=== PATIENT | male | born 1965 | race Caucasian/White ===

== ENCOUNTER → 2023-02-18 17:10 | Outpatient (BNVA) | payer MEDICARE, SELFPAY | PROVIDERS: PCP Family Medicine; Visit Provider Family Medicine | DX: I10 Essential (primary) hypertension (principal); M10.9 Gout, unspecified; I48.91 Unspecified atrial fibrillation; E11.42 Type 2 diabetes mellitus with diabetic polyneuropathy | CPT/HCPCS: 80053; 80061; 83036; 84443; 85025 ==

== ENCOUNTER → 2023-05-04 13:45 | Outpatient (BNVA) | payer MEDICARE, SELFPAY | PROVIDERS: PCP Family Medicine; Referring Provider Family Medicine; Visit Provider Internal Medicine | DX: R07.9 Chest pain, unspecified (principal); E11.42 Type 2 diabetes mellitus with diabetic polyneuropathy; I45.19 Other right bundle-branch block; I48.91 Unspecified atrial fibrillation; I10 Essential (primary) hypertension | CPT/HCPCS: 93005; 99204 ==

== ENCOUNTER 2023-05-06 16:24 | Emergency (ER) | payer MEDICARE, SELFPAY ==
[2023-05-06 16:43] VITALS: BP 125/78; PULSE 75; RESP 18; TEMP 36.5; O2SAT 98
--- NOTE | 2023-05-06 17:47 | W.ED.MALEGU ---
HPI - Male Genitourinary General: Chief complaint: Urogenital-Male Stated complaint: blood in urine, shoulder pain [facility] ED PFSH: Medical History A-fib Diabetic neuropathy Diabetes mellitus Gout Hypertension Social History Smoking and tobacco/nicotine status: current every day tobacco/nicotine user cigarettes Packs smoked per day: 0.5 Years cigarettes smoked: 30 Second hand smoke exposure: Yes Alcohol intake: never Substance/Drug Use: never Caregiver/support person: Yes Lives independently: Yes Household members: spouse Marital status: service: No Current occupational status: disabled Do you think of yourself as: Straight/Heterosexual Current gender identity: Male Special jewels needs: No Agree to transfusion: Yes Course Vital Signs: Vital signs: Vital Signs Temperature 97.7 F 05/06/23 16:43 Pulse Rate 75 05/06/23 16:43 Respiratory Rate 18 05/06/23 16:43 Blood Pressure 125/78 05/06/23 16:43 Pulse Oximetry 98 05/06/23 16:43 Oxygen Delivery Me thod Room Air 05/06/23 16:43 Discharge Plan Discharge Condition: Stable Prescriptions: No Action amlodipine 10 mg tablet 10 mg PO DAILY Qty: 30 3RF atorvastatin 20 mg tablet 20 mg PO DAILY Qty: 30 3RF carvedilol 25 mg tablet 25 mg PO BID Qty: 60 3RF Rx Instructions: must administer with a meal/food furosemide 40 mg tablet 40 mg PO DAILY Qty: 30 3RF glipizide 10 mg tablet extended release 24hr 10 mg PO BID Qty: 60 3RF hydralazine 25 mg tablet 25 mg PO BID Qty: 60 3RF metformin 500 mg tablet extended release 24 hr 500 mg PO BID Qty: 60 3RF olmesartan 40 mg tablet 40 mg PO DAILY Qty: 30 3RF pregabalin [Lyrica] 75 mg capsule 75 mg PO TID Qty: 90 1RF Trulicity 1.5 mg/0.5 mL pen injector 1.5 mg SUBCUT .weekly Qty: 2 3RF Xarelto 20 mg tablet 20 mg PO DAILY Qty: 90 3RF Rx Instructions: must administer with evening meal Referrals: Osiris Plummer MD [Primary Care Provider] - Coding Level of Care Code ED Business Strategy Manager for Chg Sabrina
[2023-05-06 18:07] LABS: Basophils # 0.1 10^3/uL (0.0-0.1); Basophils % 0.6 %; Eosinophils # 0.2 10^3/uL (0.0-0.8); Eosinophils % 1.5 %; Lymphocytes # 1.2 10^3/uL (0.8-4.8); Lymphocytes % 8.9 %; Mean Corpuscular HGB Conc 34.3 g/dL (30-55); Mean Corpuscular Hemoglobin 28.8 pg (27-33); Mean Platelet Volume 10.1 fL (7.4-10.4); Monocytes # 0.6 10^3/uL (0.2-0.9); Monocytes % 4.5 %; Neutrophils # 11.21 10^3/uL (1.8-7.7); Neutrophils % 84.2 %; Nucleated Red Blood Cells % 0 %; Platelet Count 353 10^3/cmm (157-399); Red Blood Count 5.83 10^6/uL (3.85-5.65); Red Cell Distribution Width 12.5 % (12.1-15.1); White Blood Count 13.32 10^3/uL (3.29-11.43)
--- NOTE | 2023-05-06 18:16 | CTR_ITS ---
PROCEDURE INFORMATION: Exam: CT Abdomen And Pelvis With Contrast Exam date and time: 05/06/2023 7:12 PM Age: 57 years old Clinical indication: Other: Hematuria TECHNIQUE: Imaging protocol: Computed tomography of the abdomen and pelvis with contrast. Radiation optimization: All CT scans at this facility use at least one of these dose optimization techniques: automated exposure control; mA and/or kV adjustment per patient size (includes targeted exams where dose is matched to clinical indication); or iterative reconstruction. Contrast material: OMNI 350; Contrast volume: 100 ml; Contrast route: INTRAVENOUS (IV); COMPARISON: No relevant prior studies available. RADIATION DOSE METRICS: Total DLP (mGy-cm): 1287.08 FINDINGS: Heart: On the uppermost image, calcification of heart which may be valve calcification/or coronary artery calcification. Heart size appears enlarged. Diaphragm: Eventration/elevation right hemidiaphragm. Liver: Mildly lobular configuration liver. Gallbladder and bile ducts: No calcific stone seen of gallbladder. No bile duct dilatation seen. Pancreas: Perhaps mild fatty change, fatty pancreas. Spleen: Spleen upper limits of normal to mildly prominent for length. Adrenal glands: Mild nodular configuration left adrenal. Soft tissue density nodularity/nodules right adrenal, with the largest measured at about 3 cm. Non-emergent adrenal CT is recommended. (Reference: [facility]) Kidneys and ureters: Kidneys show evidence of symmetric enhancement bilaterally. Tiny hypodensities of kidneys, too small to accurately characterize. No calcific stones seen visualized portions of kidneys, ureters bilaterally, nor urinary bladder. No dilation seen visualized portions of renal collecting systems, ureters bilaterally. Minimal perinephric stranding, nonspecific. Stomach and bowel: Stomach appears mostly empty, partly filled with fluid, gas, debris. Small bowel pattern appears nonobstructive. Moderate stool and gas of the colon. Appendix: No acute appendicitis seen. Intraperitoneal space: No free intraperitoneal air and no free abdominal nor pelvic fluid collection seen. Vasculature: Atherosclerotic disease. Ectasia abdominal aorta. Lymph nodes: Scattered small lymph nodes, nonspecific. Urinary bladder: Urinary bladder appears partly filled. Evidence of wall thickening of urinary bladder. Slight haziness, stranding around the urinary bladder. Correlate for nonspecific inflammation, cystitis, or other process. Neoplasm or other process not excluded. Reproductive: Prostate appears enlarged, slightly heterogeneous. Seminal vesicles grossly unremarkable. Bones/joints: Evidence of small ribs bilaterally T12. Endplate irregularity, sclerosis, lucency superior endplate L5 vertebral body, of uncertain age, probably subacute to chronic. Mild anterolisthesis L4 over L5. Evidence of degenerative changes facets. Probable hemangioma L4 vertebral body, perhaps minimally L3 vertebral body. Possible postoperative changes , spinal stenosis lumbar spine. Soft tissues: Tiny fat containing umbilical/paraumbilical hernia. CT/CT abdomen pelvis w con* [id number] IMPRESSION: 1. Evidence of wall thickening of urinary bladder. Slight haziness, stranding around the urinary bladder. Correlate for nonspecific inflammation, cystitis, or other process. Neoplasm or other process not excluded. 2. Mild nodular configuration left adrenal. Soft tissue density nodularity/nodules right adrenal, with the largest measured at about 3 cm. Non-emergent adrenal CT is recommended. (Reference: [facility]) 3. Please see body of report for findings. COMMENTS: Consistent with the [employer]'s Incidental Findings Committee white paper (J Am Hubert Radiol 2018): Any incidental renal lesion less than 1 cm or classified as too small to characterize, or any incidental cystic renal lesion characterized as simple-appearing, is likely benign. No follow-up imaging is recommended for these lesions per consensus recommendations based on imaging criteria. REFERENCES: Shelly CH, et al. Management of Incidental Adrenal Masses: A White Paper of the ACR Incidental Findings Committee. J Am Hubert Radiol. 2017;14(8):6285-8278.
--- NOTE | 2023-05-06 18:16 | ED_ITS ---
HPI - Male Genitourinary 2 General: Chief complaint: Urogenital-Male Stated complaint: blood in urine, shoulder pain Time Seen by Provider: 05/06/23 18:02 Source: patient Mode of arrival: ambulatory Limitations: no limitations History of Present Illness: 57-year-old male who states that he has noticed he had some hematuria since this morning. States been able to urinate without any difficulty but has had winter blood. He denies any dysuria denies any flank pain or abdominal pain. He is on blood thinners he is never had hematuria in the past. Denies any worsening improving factors. Associated symptoms: Reports hematuria; Deny dysuria, nausea or vomiting Review of Systems 2 Const: Denies: fever(s), chills, body aches or change in appetite Eyes: Denies: blurry vision or eye discomfort ENMT: Denies: throat pain or dental pain Card: Denies: chest pain Resp: Denies: dyspnea GI: Denies: abdominal pain, nausea, vomiting or diarrhea : Reports: hematuria; Denies: dysuria Musc: Denies: neck pain or back pain Skin/Breast: Denies: rash All/Imm: Denies: urticaria PFSH ED 2 PFSH: Medical History A-fib Diabetic neuropathy Diabetes mellitus Gout Hypertension Social History Smoking and tobacco/nicotine status: current every day tobacco/nicotine user cigarettes Packs smoked per day: 0.5 Years cigarettes smoked: 30 Second hand smoke exposure: Yes Alcohol intake: never Substance/Drug Use: never Caregiver/support person: Yes Lives independently: Yes Household members: spouse Marital status: service: No Current occupational status: disabled Do you think of yourself as: Straight/Heterosexual Current gender identity: Male Special jewels needs: No Agree to transfusion: Yes Physical Exam 2 Const: COMMON NORMALS: no acute distress, patient oriented x3 and healthy appearing HENMT: COMMON NORMALS: normocephalic and atraumatic HEAD & SCALP: n ormocephalic and atraumatic Eye: COMMON NORMALS: conjunctivae normal CONJUNCTIVA: Yes conjunctivae normal Neck/C-Spine: COMMON NORMALS: full ROM and supple Chest: COMMONS NORMALS: normal inspection of the chest Resp: COMMON NORMALS: normal respiratory effort Cardio: COMMON NORMALS: regular rate, regular rhythm and No murmurs present (Cardio) RATE: regular rate RHYTHM: regular rhythm GI: COMMON NORMALS: Normal to inspection, nondistended, normoactive bowel sounds present, Soft to palpation, non-tender and no masses PALPATION: Yes Soft to palpation Extremity: COMMON NORMALS: normal to inspection and full ROM Neuro: COMMON NORMALS: patient oriented x3, moves all extremities and no focal motor deficits Psych: COMMON NORMALS: mental status grossly normal, Normal thought process present and cooperative THOUGHT PROCESS: Normal thought process present Skin: COMMON NORMALS: no rashes or lesions noted and no wounds GENERAL SKIN EXAM: no rashes or lesions noted Course 2 Vital Signs: Vital signs: Vital Signs Temperature 97.7 F 05/06/23 16:43 Pulse Rate 64 05/06/23 19:45 Respiratory Rate 18 05/06/23 16:43 Blood Pressure 155/102 05/06/23 19:45 Pulse Oximetry 99 05/06/23 19:45 Oxygen Delivery Me thod Room Air 05/06/23 16:43 MDM - Male Medical Decision Making Patient presents here with hematuria we will start him on Keflex to inform is very important he needs to follow-up with urology to rule out bladder cancer patient stable for discharge at this time he understands agrees to plan Medical Records I reviewed the patient's medical records. Lab Data I reviewed the patient's lab results. 05/06/23 18:00 05/06/23 18:00 Radiology Impressions Abdomen/Pelvis CT 05/06/23 18:16 IMPRESSION: 1. Evidence of wall thickening of urinary bladder. Slight haziness, stranding around the urinary bladder. Correlate for nonspecific inflammation, cystitis, or other process. Neoplasm or other process not excluded. 2. Mild nodular configuration left adrenal. Soft tissue density nodularity/nodules right adrenal, with the largest measured at about 3 cm. Non-emergent adrenal CT is recommended. (Reference: [facility]) 3. Please see body of report for findings. COMMENTS: Consistent with the [employer]'s Incidental Findings Committee white paper (J Am Hubert Radiol 2018): Any incidental renal lesion less than 1 cm or classified as too small to characterize, or any incidental cystic renal lesion characterized as simple-appearing, is likely benign. No follow-up imaging is recommended for these lesions per consensus recommendations based on imaging criteria. REFERENCES: Shelly CH, et al. Management of Incidental Adrenal Masses: A White Paper of the ACR Incidental Findings Committee. J Am Hubert Radiol. 2017;14(8):2796-2985. Laboratory Results WBC 13.32 10^3/uL (3.29-11.43) H 05/06/23 18:00 RBC 5.83 10^6/uL (3.85-5.65) H 05/06/23 18:00 Hgb 16.80 g/dL (11.27-16.99) 05/06/23 18:00 Hct 49.0 % (37-53) 05/06/23 18:00 MCV 84.0 fl (82-101) 05/06/23 18:00 MCH 28.8 pg (27-33) 05/06/23 18:00 MCHC 34.3 g/dL (30-55) 05/06/23 18:00 RDW 12.5 % (12.1-15.1) 05/06/23 18:00 Plt Count 353 10^3/cmm (157-399) 05/06/23 18:00 MPV 10.1 fL (7.4-10.4) 05/06/23 18:00 Neut % (Auto) 84.2 % 05/06/23 18:00 Lymph % (Auto) 8.9 % 05/06/23 18:00 Wilcox % (Auto) 4.5 % 05/06/23 18:00 Eos % (Auto) 1.5 % 05/06/23 18:00 Baso % (Auto) 0.6 % 05/06/23 18:00 Neut # (Auto) 11.21 10^3/uL (1.8-7.7) H 05/06/23 18:00 Lymph # (Auto) 1.2 10^3/uL (0.8-4.8) 05/06/23 18:00 Wilcox # (Auto) 0.6 10^3/uL (0.2-0.9) 05/06/23 18:00 Eos # (Auto) 0.2 10^3/uL (0.0-0.8) 05/06/23 18:00 Baso # (Auto) 0.1 10^3/uL (0.0-0.1) 05/06/23 18:00 Nucleated RBC % (auto) 0 % 05/06/23 18:00 Nucleated RBCs # 0.0 /100WBC 05/06/23 18:00 PT 13.70 SECONDS (12.1-14.9) 05/06/23 18:00 INR 1.02 (0.8-1.2) 05/06/23 18:00 Sodium 140 mmol/L (136-145) 05/06/23 18:00 Potassium 4.5 mmol/L (3.5-5.1) 05/06/23 18:00 Chloride 99 mmol/L (98-107) 05/06/23 18:00 Carbon Dioxide 28 mmol/L (22-29) 05/06/23 18:00 Anion Gap 17.5 (5-19) 05/06/23 18:00 BUN 14 mg/dL (6-20) 05/06/23 18:00 Creatinine 1.2 mg/dL (0.7-1.2) 05/06/23 18:00 GFR Calculation 62.4 mL/min (90-130) L 05/06/23 18:00 Glucose 321 mg/dL (65-115) H 05/06/23 18:00 Calculated Osmolality 303 mOsm/kg (285-295) H 05/06/23 18:00 Calcium 9.6 mg/dL (8.5-10.5) 05/06/23 18:00 Total Bilirubin 0.6 mg/dL (0.15-1.2) 05/06/23 18:00 AST 14 U/L (0-40) 05/06/23 18:00 ALT 18 U/L (0-41) 05/06/23 18:00 Alkaline Phosphatase 117 U/L (40-130) 05/06/23 18:00 Total Protein 7.2 g/dL (6.6-8.7) 05/06/23 18:00 Albumin 4.3 g/dL (3.5-5.2) 05/06/23 18:00 Globulin 2.9 g/dL (1.3-4.6) 05/06/23 18:00 All radiology interpretation(s) finalized by discharge Discharge Plan Discharge Patient Disposition: Home Clinical Impression: Hematuria Qualifiers: Hematuria type: unspecified type Qualified Code(s): R31.9 - Hematuria, unspecified Condition: Stable Prescriptions: New cephalexin 500 mg capsule 500 mg PO TID 7 Days Qty: 21 0RF No Action amlodipine 10 mg tablet 10 mg PO DAILY Qty: 30 3RF atorvastatin 20 mg tablet 20 mg PO DAILY Qty: 30 3RF carvedilol 25 mg tablet 25 mg PO BID Qty: 60 3RF Rx Instructions: must administer with a meal/food furosemide 40 mg tablet 40 mg PO DAILY Qty: 30 3RF glipizide 10 mg tablet extended release 24hr 10 mg PO BID Qty: 60 3RF hydralazine 25 mg tablet 25 mg PO BID Qty: 60 3RF metformin 500 mg tablet extended release 24 hr 500 mg PO BID Qty: 60 3RF olmesartan 40 mg tablet 40 mg PO DAILY Qty: 30 3RF pregabalin [Lyrica] 75 mg capsule 75 mg PO TID Qty: 90 1RF Trulicity 1.5 mg/0.5 mL pen injector 1.5 mg SUBCUT .weekly Qty: 2 3RF Xarelto 20 mg tablet 20 mg PO DAILY Qty: 90 3RF Rx Instructions: must administer with evening meal Discharge Orders: Discharge ED (Routine); Ordered 05/06/23 Ordered By: Wendy Wynn Referrals: Osiris Plummer MD [Primary Care Provider] - Discharge Diet: Advance as tolerated Discharge Activity: Resume usual activity Patient Instructions: Hematuria (ED) Coding Level of Care Code ED Crusher Machine Operator for Fortino Bennett
[2023-05-06 18:20] LABS: INR 1.02 (0.8-1.2)
[2023-05-06 18:37] LABS: Alanine Aminotransferase 18 U/L (0-41); Albumin Level 4.3 g/dL (3.5-5.2); Alkaline Phosphatase 117 U/L (40-130); Anion Gap 17.5 (5-19); Aspartate Amino Transferase 14 U/L (0-40); Blood Urea Nitrogen 14 mg/dL (6-20); Calcium 9.6 mg/dL (8.5-10.5); Carbon Dioxide 28 mmol/L (22-29); Chloride 99 mmol/L (98-107); Creatinine Clr Calc Pharmacy 104.2053; Globulin 2.9 g/dL (1.3-4.6); Glomerular Filtration Rate 62.4 mL/min (90-130); Glucose 321 mg/dL (65-115); Osmolality Calculated 303 mOsm/kg (285-295); Potassium 4.5 mmol/L (3.5-5.1); Sodium 140 mmol/L (136-145); Total Bilirubin 0.6 mg/dL (0.15-1.2); Total Protein 7.2 g/dL (6.6-8.7)
[2023-05-06] MEDS: iohexol 350 mg/mL 500 mL Btl (per mL) IV (19:20)
[2023-05-06] MEDS: sodium chloride 0.9% 1,000 ML 999 ML IV (19:30)
[2023-05-06 19:45] VITALS: BP 155/102; PULSE 64; O2SAT 99
[2023-05-06] MEDS: cephALEXin 500 mg Capsule PO (20:30)
[2023-05-06 20:45] VITALS: PULSE 71; RESP 18; O2SAT 99
--- NOTE | 2023-05-07 08:21 | DCPLANNER ---
I faxed this patients chart to [facility] in [place] for referral on 05/07/23 at 0822. Clinic to contact patient for appt. Fax number sent to: [phone], phone number to clinic is: [phone]
== END 2023-05-06 20:47 | disposition home or self-care (01) ==
PROVIDERS: Internal Medicine; Emergency Provider Emergency Medicine; PCP Family Medicine
DX: R31.9 Hematuria, unspecified (principal); Z79.85 Long-term (current) use of injectable non-insulin antidiabetic drugs; Z79.84 Long term (current) use of oral hypoglycemic drugs; E11.42 Type 2 diabetes mellitus with diabetic polyneuropathy; I10 Essential (primary) hypertension; F17.210 Nicotine dependence, cigarettes, uncomplicated
CPT/HCPCS: 36415; 74177; 80053; 85025; 85610; 96360; 99285; J7030; Q9967

== ENCOUNTER 2023-08-25 11:48 | Outpatient (CLI) | payer MEDICARE, SELFPAY ==
[2023-08-25 12:29] LABS: Basophils # 0.1 10^3/uL (0.0-0.1); Basophils % 0.6 %; Eosinophils # 0.3 10^3/uL (0.0-0.8); Hematocrit 44.8 % (37-53); Lymphocytes # 1.8 10^3/uL (0.8-4.8); Lymphocytes % 12.7 %; Mean Corpuscular HGB Conc 35.5 g/dL (30-55); Mean Corpuscular Hemoglobin 29.1 pg (27-33); Mean Corpuscular Volume 82.1 fl (82-101); Mean Platelet Volume 10.2 fL (7.4-10.4); Monocytes % 7.4 %; Neutrophils # 10.77 10^3/uL (1.8-7.7); Neutrophils % 76.9 %; Nucleated Red Blood Cells % 0 %; Platelet Count 324 10^3/cmm (157-399); Red Blood Count 5.46 10^6/uL (3.85-5.65); Red Cell Distribution Width 13.2 % (12.1-15.1); White Blood Count 14.01 10^3/uL (3.29-11.43)
[2023-08-25 12:53] LABS: Alanine Aminotransferase 19 U/L (0-41); Albumin Level 3.8 g/dL (3.5-5.2); Alkaline Phosphatase 105 U/L (40-130); Anion Gap 14.3 (5-19); Aspartate Amino Transferase 16 U/L (0-40); Blood Urea Nitrogen 15 mg/dL (6-20); Calcium 9.2 mg/dL (8.5-10.5); Carbon Dioxide 30 mmol/L (22-29); Chloride 100 mmol/L (98-107); Globulin 3.2 g/dL (1.3-4.6); Glomerular Filtration Rate 62.4 mL/min (90-130); Glucose 156 mg/dL (65-115); Osmolality Calculated 296 mOsm/kg (285-295); Potassium 3.3 mmol/L (3.5-5.1); Sodium 141 mmol/L (136-145)
[2023-08-25 13:18] LABS: Estmated Average Glucose 169; Hemoglobin A1C 7.5 % (4.0-6.0)
== END 2023-08-25 11:49 | disposition home or self-care (01) ==
LOC: LAB 11:50
PROVIDERS: PCP Family Medicine; Visit Provider Nurse Practitioner Family
DX: E11.42 Type 2 diabetes mellitus with diabetic polyneuropathy (principal); E11.52 Type 2 diabetes mellitus with diabetic peripheral angiopathy with gangrene; E11.621 Type 2 diabetes mellitus with foot ulcer; L97.522 Non-pressure chronic ulcer of other part of left foot with fat layer exposed; L97.521 Non-pressure chronic ulcer of other part of left foot limited to breakdown of skin
CPT/HCPCS: 11042; 36415; 80053; 83036; 85025; 99203; A6210; A6251

== ENCOUNTER → 2023-09-02 16:00 | Outpatient (BNVA) | payer MEDICARE, SELFPAY | PROVIDERS: PCP Family Medicine; Visit Provider Family Medicine | DX: R53.83 Other fatigue (principal) | CPT/HCPCS: 82607; 84403; 84443; 85025 ==

== ENCOUNTER → 2023-09-08 10:55 | Outpatient (BNVA) | payer MEDICARE, SELFPAY | PROVIDERS: PCP Family Medicine; Visit Provider Nurse Practitioner Family | DX: E11.52 Type 2 diabetes mellitus with diabetic peripheral angiopathy with gangrene (principal); E11.621 Type 2 diabetes mellitus with foot ulcer; L97.522 Non-pressure chronic ulcer of other part of left foot with fat layer exposed | CPT/HCPCS: 11042 ==

== ENCOUNTER → 2023-09-15 11:03 | Outpatient (BNVA) | payer MEDICARE, SELFPAY | PROVIDERS: PCP Family Medicine; Visit Provider Thoracic Surgery (Cardiothoracic Vascular Surgery) | DX: E11.52 Type 2 diabetes mellitus with diabetic peripheral angiopathy with gangrene (principal); E11.621 Type 2 diabetes mellitus with foot ulcer; L97.522 Non-pressure chronic ulcer of other part of left foot with fat layer exposed | CPT/HCPCS: 11042; 97597; A6252 ==

== ENCOUNTER 2023-09-18 14:02 | Outpatient (CLI) | payer MEDICARE, SELFPAY ==
--- NOTE | 2023-09-18 14:06 | XR_ITS ---
WS: [id number] Left foot, 2 views Clinical Data: Non-healing ulcers Comparison: None. Findings: No fractures or dislocations are seen. No bone destruction or erosion is noted. There is a bunion of the head of the left first metatarsal. There is a small plantar spur. XR/XR foot LT 2V [id number] Impression: Bunion at the head of left first metatarsal.
== END 2023-09-18 14:03 | disposition home or self-care (01) ==
PROVIDERS: PCP Family Medicine; Visit Provider Nurse Practitioner Family
DX: Z51.89 Encounter for other specified aftercare (principal); E11.8 Type 2 diabetes mellitus with unspecified complications; M21.612 Bunion of left foot
CPT/HCPCS: 73620; 93970

== ENCOUNTER 2023-09-21 12:07 | Outpatient (CLI) | payer MEDICARE, SELFPAY ==
--- NOTE | 2023-09-21 12:15 | USR_ITS ---
PROCEDURE INFORMATION: Exam: US Duplex Bilateral Lower Extremity Arteries Exam date and time: 09/21/2023 12:15 PM Age: 57 years old Clinical indication: Condition or disease; Other: Non healing diabetic foot ulcer TECHNIQUE: Imaging protocol: Real-time ultrasound scan of the arteries of the bilateral lower extremities with 2-D saleh scale, color Doppler flow and spectral waveform analysis. Images documented and saved. COMPARISON: CT abdomen pelvis w con* [id number] 05/06/2023 7:12 PM FINDINGS: Right external iliac artery: Right iliac artery: Proximal 82.0 cm/sec, mid 77.0 cm/sec, distal 69.9 cm/sec, triphasic. Right common femoral artery: 85 cm/sec, triphasic. Right superficial femoral artery: Proximal SFA 61 cm/sec, triphasic. Mid SFA 72 cm/sec, triphasic. Distal SFA 95 cm/sec, triphasic. Right popliteal artery: 113 cm/sec, triphasic. Right calf/foot arteries: SILVER CHASER 71 cm/sec, triphasic. Dorsalis pedis 41 cm/sec, triphasic. Left external iliac artery: Left iliac artery: Proximal 66.0 cm/sec, mid 103.1 cm/sec, distal 74.5 cm/sec, triphasic. Left common femoral artery: 78 cm/sec, triphasic. Left superficial femoral artery: Proximal SFA 82 cm/sec, triphasic. Mid SFA 76 cm/sec, triphasic. Distal SFA 84 cm/sec, triphasic. Left popliteal artery: 57 cm/sec, triphasic. Left calf/foot arteries: SILVER CHASER 88 cm/sec, triphasic. Dorsalis pedis 51 cm/sec, triphasic. Right ankle-brachial index: 1.09 (dorsalis pedis); 1.08 (posterior tibial). Left ankle-brachial index: 1.05 (dorsalis pedis); 1.19 (posterior tibial). US/[place] [id number] IMPRESSION: No hemodynamically significant stenosis by peak systolic velocity criteria.
== END 2023-09-21 12:08 | disposition home or self-care (01) ==
LOC: RAD 12:08
PROVIDERS: PCP Family Medicine; Visit Provider Nurse Practitioner Family
DX: Z51.89 Encounter for other specified aftercare (principal)
CPT/HCPCS: 93925

== ENCOUNTER → 2023-09-22 10:25 | Outpatient (BNVA) | payer MEDICARE, SELFPAY | PROVIDERS: PCP Family Medicine; Visit Provider Thoracic Surgery (Cardiothoracic Vascular Surgery) | DX: E11.52 Type 2 diabetes mellitus with diabetic peripheral angiopathy with gangrene (principal); E11.621 Type 2 diabetes mellitus with foot ulcer; L97.521 Non-pressure chronic ulcer of other part of left foot limited to breakdown of skin | CPT/HCPCS: 97597 ==

== ENCOUNTER → 2023-09-25 13:48 | Outpatient (BNVA) | payer MEDICARE, SELFPAY | PROVIDERS: PCP Family Medicine; Visit Provider Thoracic Surgery (Cardiothoracic Vascular Surgery) | DX: E11.52 Type 2 diabetes mellitus with diabetic peripheral angiopathy with gangrene (principal); E11.621 Type 2 diabetes mellitus with foot ulcer; L97.521 Non-pressure chronic ulcer of other part of left foot limited to breakdown of skin | CPT/HCPCS: 29445; A6252 ==

== ENCOUNTER → 2023-10-02 09:28 | Outpatient (BNVA) | payer MEDICARE, SELFPAY | PROVIDERS: PCP Family Medicine; Visit Provider Thoracic Surgery (Cardiothoracic Vascular Surgery) | DX: E11.52 Type 2 diabetes mellitus with diabetic peripheral angiopathy with gangrene (principal); E11.621 Type 2 diabetes mellitus with foot ulcer; L97.521 Non-pressure chronic ulcer of other part of left foot limited to breakdown of skin | CPT/HCPCS: 97597; A6210 ==

== ENCOUNTER → 2023-10-07 09:09 | Outpatient (BNVA) | payer MEDICARE, SELFPAY | PROVIDERS: PCP Family Medicine; Visit Provider Thoracic Surgery (Cardiothoracic Vascular Surgery) | DX: E11.52 Type 2 diabetes mellitus with diabetic peripheral angiopathy with gangrene (principal); E11.621 Type 2 diabetes mellitus with foot ulcer; L97.521 Non-pressure chronic ulcer of other part of left foot limited to breakdown of skin; L97.421 Non-pressure chronic ulcer of left heel and midfoot limited to breakdown of skin | CPT/HCPCS: 97597; A6021 ==

== ENCOUNTER → 2023-10-14 08:49 | Outpatient (BNVA) | payer MEDICARE, SELFPAY | PROVIDERS: PCP Family Medicine; Visit Provider Thoracic Surgery (Cardiothoracic Vascular Surgery) | DX: Z09 Encounter for follow-up examination after completed treatment for conditions other than malignant neoplasm (principal); Z87.2 Personal history of diseases of the skin and subcutaneous tissue | CPT/HCPCS: 99212; A6197; A6253 ==

== ENCOUNTER → 2023-11-04 16:00 | Outpatient (BNVA) | payer MEDICARE, SELFPAY | PROVIDERS: PCP Family Medicine; Visit Provider Family Medicine | DX: I10 Essential (primary) hypertension (principal); E78.5 Hyperlipidemia, unspecified; E11.42 Type 2 diabetes mellitus with diabetic polyneuropathy; E53.8 Deficiency of other specified B group vitamins | CPT/HCPCS: 80053; 80061; 82607; 83036; 84443; 85025 ==

== ENCOUNTER → 2023-11-11 13:56 | Outpatient (BNVA) | payer MEDICARE, SELFPAY | PROVIDERS: PCP Family Medicine; Visit Provider Internal Medicine | DX: I48.91 Unspecified atrial fibrillation (principal); I10 Essential (primary) hypertension; E11.42 Type 2 diabetes mellitus with diabetic polyneuropathy; F17.210 Nicotine dependence, cigarettes, uncomplicated; Z79.84 Long term (current) use of oral hypoglycemic drugs | CPT/HCPCS: 99214 ==

== ENCOUNTER 2023-12-08 13:34 | Inpatient (IN) | payer MEDICARE, SELFPAY ==
[2023-12-08] VITALS (49 sets, daily range): BP systolic 145–198; BP diastolic 45–157; PULSE 60–169; RESP 13–96; TEMP 36.4; O2SAT 85–99; BMI 30.6; BMI 30.9
--- NOTE | 2023-12-08 14:09 | ECG_ITS ---
[employer] Test Date: 2023-12-08 Pat Name: Devang Kraus Department: Room: Gender: Male Medical Education Specialist: : 1965 Requested By: Damari Casanova Order Number: [id number] Reading MD: ERA LAZO Measurements Intervals Robinson Rate: 77 P: 0 CA: 0 QRS: -70 QRSD: 157 T: 3 QT: 440 QTc: 500 Interpretive Statements Atrial fibrillation RIGHT BUNDLE BRANCH BLOCK [120+ ms QRS DURATION, UPRIGHT V1, 40+ ms S IN I/aVL/V4/V5/V6] ANTERIOR MYOCARDIAL INFARCTION , PROBABLY OLD [40+ ms Q WAVE AND/OR ST/T ABNORMALITY IN V3/V4] INFERIOR MYOCARDIAL INFARCTION , PROBABLY OLD [40+ ms Q WAVE AND/OR ST/T ABNORMALITY IN II/aVF] Compared to ECG 05/04/2023 13:54:50 No significant change Electronically Signed On 12-08-2023 20:56:02 CDT by ERA LAZO [email or web address]
--- NOTE | 2023-12-08 14:09 | CT_ITS ---
WS: [id number] CT HEAD TECHNIQUE: Noncontrast CT of the head obtained from the skullbase to the vertex. CLINICAL INFORMATION: L leg motor weakness COMPARISON: None. DLP: [address] scans at [facility] use at least one of these dose optimization techniques: automated e xposure control; mA and/or kV adjustment per patient size (includes targeted exams where dose is matc hed to clinical indication); or iterative reconstruction. FINDINGS: No evidence of intracranial hemorrhage or mass effect. Ventricular system and basal cisterns are dumont nt. Moderate small vessel changes with moderate parenchymal volume loss. Chronic wedge-shaped infarct LEFT cerebellum. No extra-axial fluid collections. No evidence of mass or mass effect. Vascular calc ification. Paranasal sinuses and mastoid air cells are well aerated. .Normal visualized soft tissues. Silicone i njection LEFT globe CT/CT head thrombolytic [id number] IMPRESSION: 1. No evidence of intracranial hemorrhage or mass effect. 2. Moderate small vessel changes with moderate parenchymal volume loss. 3. Intracranial vascular calcification. 4. Chronic wedge-shaped infarct LEFT cerebellum. 5. No acute intracranial findings.
--- NOTE | 2023-12-08 14:10 | ED_ITS ---
HPI - Extremity Problem General: Chief complaint: Extremity Problem,Nontraumatic Stated complaint: LT Side Loss of feeling below the knee Time Seen by Provider: 12/08/23 13:44 Related Data Previous Rx's Medication Instructions Recorded diabetic shoes with inserts #1 ea 09/08/23 amlodipine 10 mg tablet 10 mg PO DAILY #30 tabs 11/04/23 atorvastatin 20 mg tablet 20 mg PO DAILY #30 tabs 11/04/23 carvedilol 25 mg tablet 25 mg PO BID #60 tabs 11/04/23 cyanocobalamin (vitamin B-12) 1,000 mcg IM .every 2 weeks #3 mL 11/04/23 1,000 mcg/mL injection solution dulaglutide 1.5 mg/0.5 mL 1.5 mg (0.5 mL) SUBCUT .weekly #2 11/04/23 subcutaneous pen injector mL (Trulicity) furosemide 40 mg tablet 40 mg PO DAILY #30 tabs 11/04/23 glipizide 10 mg tablet, extended 10 mg PO BID #60 tabs 11/04/23 release 24 hr hydralazine 25 mg tablet 25 mg PO BID #60 tabs 11/04/23 metformin 500 mg tablet,extended 500 mg PO BID #60 tabs 11/04/23 release 24 hr olmesartan 40 mg tablet 40 mg PO DAILY #30 tabs 11/04/23 pregabalin 75 mg capsule (Lyrica) 75 mg PO TID #90 caps 11/04/23 potassium chloride 10 mEq 10 meq PO DAILY #30 caps 11/09/23 capsule,extended release cyclobenzaprine 10 mg tablet 10 mg PO .qhs #30 tabs 11/23/23 Allergies Allergy/AdvReac Type Severity Reaction Status Date / Time No Known Allergies Allergy Verified 11/11/23 14:15 PFS ED PFSH: Medical History A-fib Diabetic neuropathy Diabetes mellitus Gout Hypertension Social History Smoking and tobacco/nicotine status: never used tobacco/nicotine Second hand smoke exposure: Yes Alcohol intake: never Substance/Drug Use: never Caregiver/support person: Yes Lives independently: Yes Household members: spouse Marital status: service: No Current occupational status: disabled Do you think of yourself as: Straight/Heterosexual Current gender identity: Male Special jewels needs: No Agree to transfusion: Yes Course Vital Signs: Vital signs: Vital Signs Temperature 97.6 F 12/08/23 13:38 Pulse Rate 76 12/08/23 13:38 Respiratory Rate 18 12/08/23 13:38 Blood Pressure 162/96 12/08/23 13:38 Pulse Oximetry 98 12/08/23 13:38 Oxygen Delivery Me thod Room Air 12/08/23 13:38 Discharge Plan Discharge Condition: Stable Prescriptions: No Action (DME) diabetic shoes with inserts See Rx Instructions .Route .MEDSUPPLY Qty: 1 0RF Rx Instructions: As directed amlodipine 10 mg tablet 10 mg PO DAILY Qty: 30 3RF atorvastatin 20 mg tablet 20 mg PO DAILY Qty: 30 3RF carvedilol 25 mg tablet 25 mg PO BID Qty: 60 3RF Rx Instructions: must administer with a meal/food cyanocobalamin (vitamin B-12) 1,000 mcg/mL solution 1,000 mcg IM .every 2 weeks Qty: 3 0RF Rx Instructions: for 6 weeks. Trulicity 1.5 mg/0.5 mL pen injector 1.5 mg SUBCUT .weekly Qty: 2 3RF furosemide 40 mg tablet 40 mg PO DAILY Qty: 30 3RF glipizide 10 mg tablet extended release 24hr 10 mg PO BID Qty: 60 3RF hydralazine 25 mg tablet 25 mg PO BID Qty: 60 3RF metformin 500 mg tablet extended release 24 hr 500 mg PO BID Qty: 60 3RF olmesartan 40 mg tablet 40 mg PO DAILY Qty: 30 3RF pregabalin [Lyrica] 75 mg capsule 75 mg PO TID Qty: 90 1RF cyclobenzaprine 10 mg tablet 10 mg PO .qhs Qty: 30 2RF potassium chloride 10 mEq capsule, extended release 10 meq PO DAILY Qty: 30 1RF Coding Level of Care Code ED Clinical Nurse Educator for Fortino Bennett NIH stroke score NIHSS Level Of Consciousness - 1a: 0 Level Of Consciousness Questions - 1b: Both Correct Level Of Consciousness Commands - 1c: Both Correct Best Gaze - 2: Normal Visual Hernandez - 3: No Visual Loss Facial Palsy - 4: Normal (he has a chronic L lid lag from previous eye surgery) Motor Arm Right - 5: No Drift Motor Arm Left - 5: No Drift Motor Leg Right - 6: No Drift Motor Leg Left - 6: No Movement Limb Ataxia - 7: Absent Sensory - 8: Normal Best Language - 9: No Aphasia Dysarthia - 10: Normal Extinction And Inattention - 11: 0 Score Total Score: 4
--- NOTE | 2023-12-08 14:16 | CT_ITS ---
WS: [id number] CTA HEAD AND NECK TECHNIQUE: Contrast enhanced CTA of the head and neck with coronal and sagittal reformatted images an d maximum intensity projection (MIP) images. NASCET criteria utilized. CLINICAL INFORMATION: L leg motor weakness COMPARISON: None. DLP: 569.[address] scans at [facility] use at least one of these dose optimization techniques: automated e xposure control; mA and/or kV adjustment per patient size (includes targeted exams where dose is matc hed to clinical indication); or iterative reconstruction. FINDINGS: RIGHT: RIGHT common artery is patent. No significant RIGHT ICA stenosis. RIGHT ICA is patent to the s kull base. LEFT: LEFT common carotid artery is patent. No significant LEFT ICA stenosis. LEFT ICA is patent to t he skull base. Codominant and patent vertebral arteries bilaterally. Proximal basilar artery is patent. Patent LEFT posterior communicating artery. Normal vascularity to the COMPOSITION INSTRUCTOR territory bilaterally. Both ICAs are patent at the skull base. Small LEFT A1 segment. Normal vascularity to the NATI and MCA territories bilaterally. No evidence of proximal flow-limiting stenosis. Chronic wedge-shaped LEFT cerebellar infarct. Silicone injection LEFT orbit. Reversal of normal cervical lordosis with moderate spondylitic changes. Disc osteophyte protrusion C4 -5 with moderate central canal stenosis. CT/CT angio headneck* [id number] IMPRESSION: 1. No significant cervical ICA stenosis. 2. No evidence of proximal flow-limiting intracranial stenosis.
[2023-12-08 14:18] LABS: Glucose Point of Care 163 mg/dL (70-110)
[2023-12-08 14:23] LABS: Basophils # 0.1 10^3/uL (0.0-0.1); Basophils % 0.9 %; Eosinophils # 0.2 10^3/uL (0.0-0.8); Eosinophils % 1.9 %; Hematocrit 46.1 % (37-53); Lymphocytes # 1.1 10^3/uL (0.8-4.8); Lymphocytes % 9.7 %; Mean Corpuscular HGB Conc 34.5 g/dL (30-55); Mean Corpuscular Hemoglobin 29.6 pg (27-33); Mean Corpuscular Volume 85.7 fl (82-101); Mean Platelet Volume 10.3 fL (7.4-10.4); Monocytes # 0.8 10^3/uL (0.2-0.9); Neutrophils # 9.06 10^3/uL (1.8-7.7); Neutrophils % 80.1 %; Nucleated Red Blood Cells % 0 %; Platelet Count 238 10^3/cmm (157-399); Red Blood Count 5.38 10^6/uL (3.85-5.65); Red Cell Distribution Width 13.2 % (12.1-15.1); White Blood Count 11.29 10^3/uL (3.29-11.43)
--- NOTE | 2023-12-08 14:33 | W.ED.NEUROSD ---
Documented by User: JONY Quiroz 12/09/23 13:26 HPI - Neuro Symptoms/Deficit General: Chief Complaint: Extremity Problem,Nontraumatic Stated Complaint: LT Side Loss of feeling below the knee Time Seen by Provider: 12/08/23 13:44 Source: patient and family Mode of arrival: wheelchair Limitations: no limitations History of Present Illness: Patient is a 58-year-old male presents to ED today along with family for evaluation of not being able to move his left lower extremity. Patient states around noon today he was seated when he felt like he was going to fall out of his chair. He states this happened twice. He states he went to get up and noticed that he was not able to move his left lower extremity. He states he is not having any sensory loss to the leg. He states he cannot walk because he is not able to move the leg. Patient states he does have chronic back pain. He is not able to tell me whether his back pain today is any worse than his baseline. He has not noticed any slurred speech or facial droop. 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 He has not noticed any weakness to his upper extremities. Denies slurred speech or aphasia. PMH is significant for atrial fibrillation, B12 deficiency, diabetes, HTN, and hyperlipidemia. Onset (ago): hour(s) Time: 12:00 Timing confirmed by: family member Location: left leg History of same: No Severity: severe Quality: weak Relieving factors: none Exacerbating factors: none Context: sudden onset On Anticoagulants: Yes Associated symptoms: Reports no associated symptoms; Deny chest pain or malaise Treatments Prior to Arrival: none Related Data Previous Rx's Medication Instructions Recorded diabetic shoes with inserts #1 ea 09/08/23 amlodipine 10 mg tablet 10 mg PO DAILY #30 tabs 11/04/23 atorvastatin 20 mg tablet 20 mg PO DAILY #30 tabs 11/04/23 carvedilol 25 mg tablet 25 mg PO BID #60 tabs 11/04/23 cyanocobalamin (vitamin B-12) 1,000 mcg IM .every 2 weeks #3 mL 11/04/23 1,000 mcg/mL injection solution dulaglutide 1.5 mg/0.5 mL 1.5 mg (0.5 mL) SUBCUT .weekly #2 11/04/23 subcutaneous pen injector mL (Trulicity) furosemide 40 mg tablet 40 mg PO DAILY #30 tabs 11/04/23 glipizide 10 mg tablet, extended 10 mg PO BID #60 tabs 11/04/23 release 24 hr hydralazine 25 mg tablet 25 mg PO BID #60 tabs 11/04/23 metformin 500 mg tablet,extended 500 mg PO BID #60 tabs 11/04/23 release 24 hr olmesartan 40 mg tablet 40 mg PO DAILY #30 tabs 11/04/23 pregabalin 75 mg capsule (Lyrica) 75 mg PO TID #90 caps 11/04/23 potassium chloride 10 mEq 10 meq PO DAILY #30 caps 11/09/23 capsule,extended release cyclobenzaprine 10 mg tablet 10 mg PO .qhs #30 tabs 11/23/23 Allergies Allergy/AdvReac Type Severity Reaction Status Date / Time No Known Allergies Allergy Verified 11/11/23 14:15 Review of Systems Const: Denies: fever(s), chills, body aches, fatigue or malaise Card: Denies: chest pain Resp: Denies: dyspnea GI: Denies: abdominal pain : Denies: flank pain or dysuria Musc: Reports: back pain (chronic), limited range of motion and muscle weakness; Denies: neck pain, extremity pain, extremity swelling, joint pain or joint swelling Skin/Breast: Denies: rash Neuro: Denies: numbness in extremities, weakness in extremities or sensory changes PFSH ED PFSH: Medical History A-fib Diabetic neuropathy Diabetes mellitus Gout Hypertension Surgical History History of back surgery Family History Other Cancer Social History Smoking and tobacco/nicotine status: never used tobacco/nicotine Second hand smoke exposure: Yes Alcohol intake: never Substance/Drug Use: never Caregiver/support person: Yes Lives independently: Yes Household members: spouse Marital status: service: No Current occupational status: disabled Do you think of yourself as: Straight/Heterosexual Current gender identity: Male Special jewels needs: No Agree to transfusion: Yes NIH stroke score NIHSS: Level Of Consciousness - 1a: 0 Level Of Consciousness Questions - 1b: Both Correct Level Of Consciousness Commands - 1c: Both Correct Best Gaze - 2: Normal Visual Hernandez - 3: No Visual Loss (has silicone implant to left eye) Facial Palsy - 4: Normal Motor Arm Right - 5: No Drift Motor Arm Left - 5: No Drift Motor Leg Right - 6: No Drift Motor Leg Left - 6: No Movement Limb Ataxia - 7: Absent (cannot perform heel to hayes using L LE due to motor weakness) Sensory - 8: Normal Best Language - 9: No Aphasia Dysarthia - 10: Normal Extinction And Inattention - 11: 0 Score: Total Score: 4 Physical Exam Const: COMMON NORMALS: patient oriented x3, no limitations, alert and well nourished GENERAL APPEARANCE: cooperative NUTRITIONAL APPEARANCE: overweight ORIENTATION/CONSCIOUSNESS: Yes awake, Yes oriented to person, Yes oriented to place and Yes oriented to time HENMT: FACE & SINUS: face symmetric (chronic lid lag L eye from previous surgeries) Eye: OTHER: Silicone implant left eye Neck/C-Spine: COMMON NORMALS: full ROM and no JVD Resp: COMMON NORMALS: normal respiratory effort and clear to auscultation bilaterally AUSCULTATION: clear to auscultation bilaterally Cardio: COMMON NORMALS: no JVD and regular rate RATE: regular rate RHYTHM: abnormal rhythm irregularly irregular : COMMON NORMALS: Yes no CVA tenderness BLADDER/KIDNEY EXAM: Yes no CVA tenderness Back/Pelvis: COMMON NORMALS: no CVA tenderness, thoracic and lumbar spine normal to inspection and no thoracic nor lumbar tenderness Extremity: COMMON NORMALS: capillary refill normal, no joint enlargement, no clubbing, cyanosis or edema, no calf tenderness and no pedal edema GENERAL: Yes normal exam except as noted OTHER: pt states he is not able to move any portion of his left lower extremity; he cannot raise extremity off table; if I passively raise leg it immediately falls once I let go; he cannot provide any resistance from his hip, knee, or ankle flexors/extensors; he does report normal sensation; DP/PT pulses are normal; no edema; no change in color/temp when compared to R LE Neuro: COMMON NORMALS: patient oriented x3 and no sensory deficits noted SENSORIUM/ORIENTATION: Yes alert, Yes oriented to person, Yes oriented to place and Yes oriented to time CRANIAL NERVES: Yes CN normal except as noted COORDINATION/BALANCE: [id number] test normal SPEECH: speech normal GAIT: Yes Unable to assess gait COORDINATION: [id number] test normal Course ED course: Dr. Benson was immediately alerted after my initial examination on patient and he agreed with decision for stroke alert. He also will evaluate patient. Patient's is now telling me he is not on his prescribed Xarelto. had verified during my initial exam that he was on a blood thinner for his atrial fibrillation. I had read Dr. Bell's note from last month confirming Xarelto for this. On another re-assessment of patient, I spoke to again confirming his anticoagulation and that's when she seemed to think his Trulicity and/or his aspirin was his blood thinner. When I explained to her that I was referring to his Xarelto she tells me he is not taking this because he cannot afford it and states he has not been on this for many months. I called Dr. Santana immediately as well as Dr. Benson because this could impact the decision to give TNK. Dr. Santana is coming to evaluate him at bedside. Vital Signs: Vital signs: Vital Signs Temperature 97.8 F 12/09/23 09:30 Pulse Rate 68 12/09/23 10:25 Respiratory Rate 14 12/09/23 09:30 Blood Pressure 187/100 12/09/23 09:30 Pulse Oximetry 97 12/09/23 10:25 Oxygen Delivery Me thod Room Air 12/09/23 10:25 MDM - Neuro Symptoms/Deficit Medical Decision Making Patient is a 58-year-old male who comes in to the ED today complaining of acute onset left leg motor weakness. He was triaged as a knee numbness. During my examination, he tells me that he is having primarily motor loss to the left leg. Immediately after my assessment I spoke to Dr. Benson and decision was made to call a stroke alert. Patient and his family had initially verified he was on anticoagulation for his atrial fibrillation therefore initially was not a TNK candidate. After speaking to family again, there was some confusion on this. did later verify that he is not on his Xarelto as he cannot afford this medication. Dr. Santana evaluated patient here in the emergency department and decision was made to give TNK. He will be an admit to ICU to Dr. Prince. Chart reviewed and patient discussed with midlevel. Agree with assessment and plan. Patient was initially seen by Damari Gomez she had came to me and asked about his symptoms we reviewed his having motor and sensory loss in his left leg. Advised her to call stroke alert I did see the patient he did indeed have motor weakness I was able to elicit some sensation with sharp touch on the sole of the foot. His onset of symptoms was 2 hours ago however initially we were told that he had been taking Xarelto therefore not making him a candidate for tPA. Patient's NIH score at the time my sex and I both calculated at 4. I did see the patient in CT suite and independently examined him. At that point with his stroke score being less than 6 and his report of being on Xarelto he was felt not to be a candidate for TNKase or for thrombotic back to me because a stroke score was less than 6. I was later discovered by Ms. Gomez that the patient was not taking his Xarelto. Family had initially reported to her that he was. Dr. Santana came to the ED department seeing the patient and recommended TNKase which she was given PCC her notes. Differential Diagnosis Likely cerebrovascular accident Medical Records I reviewed the patient's medical records. Lab Data I reviewed the patient's lab results. 12/08/23 14:15 12/08/23 14:[address] 12/08/23 14:09 IMPRESSION: 1. No evidence of intracranial hemorrhage or mass effect. 2. Moderate small vessel changes with moderate parenchymal volume loss. 3. Intracranial vascular calcification. 4. Chronic wedge-shaped infarct LEFT cerebellum. 5. No acute intracranial findings. Head/Neck CTA 12/08/23 14:16 IMPRESSION: 1. No significant cervical ICA stenosis. 2. No evidence of proximal flow-limiting intracranial stenosis. Knee X-Ray 12/08/23 23:30 IMPRESSION: 1. Indeterminate focal bony defect at the lateral femoral condyle which may be chronic. Recommend CT correlation. 2. Severe degenerative joint disease with joint effusion. Laboratory Results WBC 11.29 10^3/uL (3.29-11.43) 12/08/23 14:15 RBC 5.38 10^6/uL (3.85-5.65) 12/08/23 14:15 Hgb 15.90 g/dL (11.27-16.99) 12/08/23 14:15 Hct 46.1 % (37-53) 12/08/23 14:15 MCV 85.7 fl (82-101) 12/08/23 14:15 MCH 29.6 pg (27-33) 12/08/23 14:15 MCHC 34.5 g/dL (30-55) 12/08/23 14:15 RDW 13.2 % (12.1-15.1) 12/08/23 14:15 Plt Count 238 10^3/cmm (157-399) 12/08/23 14:15 MPV 10.3 fL (7.4-10.4) 12/08/23 14:15 Neut % (Auto) 80.1 % 12/08/23 14:15 Lymph % (Auto) 9.7 % 12/08/23 14:15 [place] % (Auto) 7.0 % 12/08/23 14:15 Eos % (Auto) 1.9 % 12/08/23 14:15 Baso % (Auto) 0.9 % 12/08/23 14:15 Neut # (Auto) 9.06 10^3/uL (1.8-7.7) H 12/08/23 14:15 Lymph # (Auto) 1.1 10^3/uL (0.8-4.8) 12/08/23 14:15 [place] # (Auto) 0.8 10^3/uL (0.2-0.9) 12/08/23 14:15 Eos # (Auto) 0.2 10^3/uL (0.0-0.8) 12/08/23 14:15 Baso # (Auto) 0.1 10^3/uL (0.0-0.1) 12/08/23 14:15 Nucleated RBC % (auto) 0 % 12/08/23 14:15 Nucleated RBCs # 0.0 /100WBC 12/08/23 14:15 PT 14.20 SECONDS (12.1-14.9) 12/08/23 14:15 INR 1.07 (0.8-1.2) 12/08/23 14:15 APTT 29.4 SECONDS (23.9-36.7) 12/08/23 14:15 Sodium 141 mmol/L (136-145) 12/08/23 14:15 Potassium 3.1 mmol/L (3.5-5.1) L 12/08/23 14:15 Chloride 102 mmol/L (98-107) 12/08/23 14:15 Carbon Dioxide 29 mmol/L (22-29) 12/08/23 14:15 Anion Gap 13.1 (5-19) 12/08/23 14:15 BUN 11 mg/dL (6-20) 12/08/23 14:15 Creatinine 1.0 mg/dL (0.7-1.2) 12/08/23 14:15 GFR Calculation 76.7 mL/min (90-130) L 12/08/23 14:15 Glucose 169 mg/dL (65-115) H 12/08/23 14:15 POC Glucose 163 mg/dL (70-110) H 12/08/23 14:11 Calculated Osmolality 295 mOsm/kg (285-295) 12/08/23 14:15 Calcium 8.8 mg/dL (8.5-10.5) 12/08/23 14:15 Total Bilirubin 1.1 mg/dL (0.15-1.2) 12/08/23 14:15 AST 14 U/L (0-40) 12/08/23 14:15 ALT 16 U/L (0-41) 12/08/23 14:15 Alkaline Phosphatase 86 U/L (40-130) 12/08/23 14:15 Total Protein 6.8 g/dL (6.6-8.7) 12/08/23 14:15 Albumin 4.0 g/dL (3.5-5.2) 12/08/23 14:15 Globulin 2.8 g/dL (1.3-4.6) 12/08/23 14:15 Triglycerides 146 mg/dL (0-150) 12/08/23 14:15 Cholesterol 101 mg/dL (0-200) 12/08/23 14:15 LDL Cholesterol, Calc 45 mg/dL (50-129) L 12/08/23 14:15 HDL Cholesterol 27 mg/dL (60-100) L 12/08/23 14:15 LDL/HDL Ratio 1.67 RATIO (0.00-3.22) 12/08/23 14:15 Cholesterol/HDL Ratio 3.74 mg/dL (1.0-5.00) 12/08/23 14:15 TSH 1.43 uIU/mL (0.27-4.20) 12/08/23 14:15 Urine Color Yellow (Yellow) 12/08/23 15:41 Urine Appearance Clear (CLEAR) 12/08/23 15:41 Urine pH 7.5 (5-7) 12/08/23 15:41 Ur Specific [place] 1.033 (1.005-1.030) H 12/08/23 15:41 Urine Protein Trace (Negative) A 12/08/23 15:41 Urine Glucose (UA) 1+ (Normal) H 12/08/23 15:41 Urine Ketones Negative (Negative) 12/08/23 15:41 Urine Blood Negative (Negative) 12/08/23 15:41 Urine Nitrate Negative (Negative) 12/08/23 15:41 Urine Bilirubin Negative (Negative) 12/08/23 15:41 Urine Urobilinogen 1.0 mg/dL (Negative) 12/08/23 15:41 Ur Leukocyte Esterase Negative (Negative) 12/08/23 15:41 Urine RBC 0-2 /hpf (0-2) 12/08/23 15:41 Urine WBC 0-5 /hpf (0-5) 12/08/23 15:41 Ur Squamous Epith Cells 0-5 /hpf (0-5) 12/08/23 15:41 Amorphous Sediment Not Reportable 12/08/23 15:41 Urine Bacteria None seen /hpf (NONE) 12/08/23 15:41 Hyaline Casts 0.81 /lpf 12/08/23 15:41 Urine Opiates Screen Negative ng/mL (Negative) 12/08/23 15:41 Ur Barbiturates Screen Negative ng/mL (Negative) 12/08/23 15:41 Ur Phencyclidine Scrn Negative ng/mL (Negative) 12/08/23 15:41 Ur Amphetamines Screen Negative ng/mL (Negative) 12/08/23 15:41 U Benzodiazepines Scrn Negative ng/mL (Negative) 12/08/23 15:41 Urine Cocaine Screen Negative ng/mL (Negative) 12/08/23 15:41 U Marijuana (THC) Screen Negative ng/mL (Negative) 12/08/23 15:41 All radiology interpretation(s) finalized by discharge Discharge Plan Discharge Patient Disposition: Admitted As Inpatient Admit Provider: Malachi Prince Clinical Impression: Weakness of left leg Condition: Stable Coding Level of Care Code ED Technology Solutions Architect for Chg Fwd Documented by User: Grover Benson DO 12/09/23 05:14 HPI - Neuro Symptoms/Deficit General: Chief Complaint: Extremity Problem,Nontraumatic Stated Complaint: LT Side Loss of feeling below the knee Time Seen by Provider: 12/08/23 13:44 Related Data Previous Rx's Medication Instructions Recorded diabetic shoes with inserts #1 ea 09/08/23 amlodipine 10 mg tablet 10 mg PO DAILY #30 tabs 11/04/23 atorvastatin 20 mg tablet 20 mg PO DAILY #30 tabs 11/04/23 carvedilol 25 mg tablet 25 mg PO BID #60 tabs 11/04/23 cyanocobalamin (vitamin B-12) 1,000 mcg IM .every 2 weeks #3 mL 11/04/23 1,000 mcg/mL injection solution dulaglutide 1.5 mg/0.5 mL 1.5 mg (0.5 mL) SUBCUT .weekly #2 11/04/23 [facility] furosemide 40 mg tablet 40 mg PO DAILY #30 tabs 11/04/23 glipizide 10 mg tablet, extended 10 mg PO BID #60 tabs 11/04/23 release 24 hr hydralazine 25 mg tablet 25 mg PO BID #60 tabs 11/04/23 metformin 500 mg tablet,extended 500 mg PO BID #60 tabs 11/04/23 release 24 hr olmesartan 40 mg tablet 40 mg PO DAILY #30 tabs 11/04/23 pregabalin 75 mg capsule (Lyrica) 75 mg PO TID #90 caps 11/04/23 potassium chloride 10 mEq 10 meq PO DAILY #30 caps 11/09/23 capsule,extended release cyclobenzaprine 10 mg tablet 10 mg PO .qhs #30 tabs 11/23/23 Allergies Allergy/AdvReac Type Severity Reaction Status Date / Time No Known Allergies Allergy Verified 11/11/23 14:15 [facility] ED PFS: Medical History A-fib Diabetic neuropathy Diabetes mellitus Gout Hypertension Surgical History History of back surgery Family History Other Cancer Social History Smoking and tobacco/nicotine status: never used tobacco/nicotine Second hand smoke exposure: Yes Alcohol intake: never Substance/Drug Use: never Caregiver/support person: Yes Lives independently: Yes Household members: spouse Marital status: service: No Current occupational status: disabled Do you think of yourself as: Straight/Heterosexual Current gender identity: Male Special jewels needs: No Agree to transfusion: Yes NIH stroke score Score: Total Score: 4 Course Vital Signs: Vital signs: Vital Signs Temperature 97.8 F 12/09/23 09:30 Pulse Rate 68 12/09/23 10:25 Respiratory Rate 14 12/09/23 09:30 Blood Pressure 187/100 12/09/23 09:30 Pulse Oximetry 97 12/09/23 10:25 Oxygen Delivery Me thod Room Air 12/09/23 10:25 MDM - Neuro Symptoms/Deficit Medical Decision Making Patient is a 58-year-old male who comes in to the ED today complaining of acute onset left leg motor weakness. He was triaged as a knee numbness during my examination he tells me that he is having primarily motor loss to the left leg. Immediately after my assessment I spoke to Dr. Benson and decision was made to call a stroke alert. Patient and his family had initially verified he was on anticoagulation for his atrial fibrillation therefore initially was not a TNK candidate. After speaking to family again, there was some confusion on this. did later verify that he is not on his Xarelto as he cannot afford this medication. Dr. Santana evaluated patient here in the emergency department and decision was made to give TNK. He will be an admit to ICU to Dr. Prince. Chart reviewed and patient discussed with midlevel. Agree with assessment and plan. Patient was initially seen by Damari Patricia she had came to me and asked about his symptoms we reviewed his having motor and sensory loss in his left leg. Advised her to call stroke alert I did see the patient he did indeed have motor weakness I was able to elicit some sensation with sharp touch on the sole of the foot. His onset of symptoms was 2 hours ago however initially we were told that he had been taking Xarelto therefore not making him a candidate for tPA. Patient's NIH score at the time my sex and I both calculated at 4. I did see the patient in CT suite and independently examined him. At that point with his stroke score being less than 6 and his report of being on Xarelto he was felt not to be a candidate for TNKase or for thrombotic back to me because a stroke score was less than 6. I was later discovered by Ms. Gomez that the patient was not taking his Xarelto. Family had initially reported to her that he was. Dr. Santana came to the ED department seeing the patient and recommended TNKase which she was given PCC her notes. Lab Data 12/08/23 14:15 12/08/23 14:[address] 12/08/23 14:09 IMPRESSION: 1. No evidence of intracranial hemorrhage or mass effect. 2. Moderate small vessel changes with moderate parenchymal volume loss. 3. Intracranial vascular calcification. 4. Chronic wedge-shaped infarct LEFT cerebellum. 5. No acute intracranial findings. Head/Neck CTA 12/08/23 14:16 IMPRESSION: 1. No significant cervical ICA stenosis. 2. No evidence of proximal flow-limiting intracranial stenosis. Knee X-Ray 12/08/23 23:30 IMPRESSION: 1. Indeterminate focal bony defect at the lateral femoral condyle which may be chronic. Recommend CT correlation. 2. Severe degenerative joint disease with joint effusion. Laboratory Results WBC 11.29 10^3/uL (3.29-11.43) 12/08/23 14:15 RBC 5.38 10^6/uL (3.85-5.65) 12/08/23 14:15 Hgb 15.90 g/dL (11.27-16.99) 12/08/23 14:15 Hct 46.1 % (37-53) 12/08/23 14:15 MCV 85.7 fl (82-101) 12/08/23 14:15 MCH 29.6 pg (27-33) 12/08/23 14:15 MCHC 34.5 g/dL (30-55) 12/08/23 14:15 RDW 13.2 % (12.1-15.1) 12/08/23 14:15 Plt Count 238 10^3/cmm (157-399) 12/08/23 14:15 MPV 10.3 fL (7.4-10.4) 12/08/23 14:15 Neut % (Auto) 80.1 % 12/08/23 14:15 Lymph % (Auto) 9.7 % 12/08/23 14:15 [place] % (Auto) 7.0 % 12/08/23 14:15 Eos % (Auto) 1.9 % 12/08/23 14:15 Baso % (Auto) 0.9 % 12/08/23 14:15 Neut # (Auto) 9.06 10^3/uL (1.8-7.7) H 12/08/23 14:15 Lymph # (Auto) 1.1 10^3/uL (0.8-4.8) 12/08/23 14:15 [place] # (Auto) 0.8 10^3/uL (0.2-0.9) 12/08/23 14:15 Eos # (Auto) 0.2 10^3/uL (0.0-0.8) 12/08/23 14:15 Baso # (Auto) 0.1 10^3/uL (0.0-0.1) 12/08/23 14:15 Nucleated RBC % (auto) 0 % 12/08/23 14:15 Nucleated RBCs # 0.0 /100WBC 12/08/23 14:15 PT 14.20 SECONDS (12.1-14.9) 12/08/23 14:15 INR 1.07 (0.8-1.2) 12/08/23 14:15 APTT 29.4 SECONDS (23.9-36.7) 12/08/23 14:15 Sodium 141 mmol/L (136-145) 12/08/23 14:15 Potassium 3.1 mmol/L (3.5-5.1) L 12/08/23 14:15 Chloride 102 mmol/L (98-107) 12/08/23 14:15 Carbon Dioxide 29 mmol/L (22-29) 12/08/23 14:15 Anion Gap 13.1 (5-19) 12/08/23 14:15 BUN 11 mg/dL (6-20) 12/08/23 14:15 Creatinine 1.0 mg/dL (0.7-1.2) 12/08/23 14:15 GFR Calculation 76.7 mL/min (90-130) L 12/08/23 14:15 Glucose 169 mg/dL (65-115) H 12/08/23 14:15 POC Glucose 163 mg/dL (70-110) H 12/08/23 14:11 Calculated Osmolality 295 mOsm/kg (285-295) 12/08/23 14:15 Calcium 8.8 mg/dL (8.5-10.5) 12/08/23 14:15 Total Bilirubin 1.1 mg/dL (0.15-1.2) 12/08/23 14:15 AST 14 U/L (0-40) 12/08/23 14:15 ALT 16 U/L (0-41) 12/08/23 14:15 Alkaline Phosphatase 86 U/L (40-130) 12/08/23 14:15 Total Protein 6.8 g/dL (6.6-8.7) 12/08/23 14:15 Albumin 4.0 g/dL (3.5-5.2) 12/08/23 14:15 Globulin 2.8 g/dL (1.3-4.6) 12/08/23 14:15 Triglycerides 146 mg/dL (0-150) 12/08/23 14:15 Cholesterol 101 mg/dL (0-200) 12/08/23 14:15 LDL Cholesterol, Calc 45 mg/dL (50-129) L 12/08/23 14:15 HDL Cholesterol 27 mg/dL (60-100) L 12/08/23 14:15 LDL/HDL Ratio 1.67 RATIO (0.00-3.22) 12/08/23 14:15 Cholesterol/HDL Ratio 3.74 mg/dL (1.0-5.00) 12/08/23 14:15 TSH 1.43 uIU/mL (0.27-4.20) 12/08/23 14:15 Urine Color Yellow (Yellow) 12/08/23 15:41 Urine Appearance Clear (CLEAR) 12/08/23 15:41 Urine pH 7.5 (5-7) 12/08/23 15:41 Ur Specific [place] 1.033 (1.005-1.030) H 12/08/23 15:41 Urine Protein Trace (Negative) A 12/08/23 15:41 Urine Glucose (UA) 1+ (Normal) H 12/08/23 15:41 Urine Ketones Negative (Negative) 12/08/23 15:41 Urine Blood Negative (Negative) 12/08/23 15:41 Urine Nitrate Negative (Negative) 12/08/23 15:41 Urine Bilirubin Negative (Negative) 12/08/23 15:41 Urine Urobilinogen 1.0 mg/dL (Negative) 12/08/23 15:41 Ur Leukocyte Esterase Negative (Negative) 12/08/23 15:41 Urine RBC 0-2 /hpf (0-2) 12/08/23 15:41 Urine WBC 0-5 /hpf (0-5) 12/08/23 15:41 Ur Squamous Epith Cells 0-5 /hpf (0-5) 12/08/23 15:41 Amorphous Sediment Not Reportable 12/08/23 15:41 Urine Bacteria None seen /hpf (NONE) 12/08/23 15:41 Hyaline Casts 0.81 /lpf 12/08/23 15:41 Urine Opiates Screen Negative ng/mL (Negative) 12/08/23 15:41 Ur Barbiturates Screen Negative ng/mL (Negative) 12/08/23 15:41 Ur Phencyclidine Scrn Negative ng/mL (Negative) 12/08/23 15:41 Ur Amphetamines Screen Negative ng/mL (Negative) 12/08/23 15:41 U Benzodiazepines Scrn Negative ng/mL (Negative) 12/08/23 15:41 Urine Cocaine Screen Negative ng/mL (Negative) 12/08/23 15:41 U Marijuana (THC) Screen Negative ng/mL (Negative) 12/08/23 15:41 Discharge Plan Discharge Patient Disposition: Admitted As Inpatient Admit Provider: Malachi Prince Clinical Impression: Weakness of left leg Condition: Stable Coding Level of Care Code ED Technology Solutions Architect for Chg Fwd
[2023-12-08 14:34] LABS: INR 1.07 (0.8-1.2)
[2023-12-08 14:35] LABS: Partial Thromboplastin Time 29.4 SECONDS (23.9-36.7)
[2023-12-08 14:39] LABS: Alanine Aminotransferase 16 U/L (0-41); Alkaline Phosphatase 86 U/L (40-130); Anion Gap 13.1 (5-19); Aspartate Amino Transferase 14 U/L (0-40); Blood Urea Nitrogen 11 mg/dL (6-20); Calcium 8.8 mg/dL (8.5-10.5); Carbon Dioxide 29 mmol/L (22-29); Chloride 102 mmol/L (98-107); Creatinine Clr Calc Pharmacy 120.2334; Globulin 2.8 g/dL (1.3-4.6); Glomerular Filtration Rate 76.7 mL/min (90-130); Glucose 169 mg/dL (65-115); Osmolality Calculated 295 mOsm/kg (285-295); Potassium 3.1 mmol/L (3.5-5.1); Sodium 141 mmol/L (136-145); Total Bilirubin 1.1 mg/dL (0.15-1.2); Total Protein 6.8 g/dL (6.6-8.7)
[2023-12-08] MEDS: sodium chloride 0.9% 1,000 ML 999 ML IV (14:43)
[2023-12-08] MEDS: iohexol 350 mg/mL 500 mL Btl (per mL) IV (14:47)
[2023-12-08] MEDS: tenecteplase 50mg Kit (STROKE) 25 MG IVP (15:35)
[2023-12-08 15:54] LABS: Bilirubin Urine Negative (Negative); Blood Urine Negative (Negative); Glucose Urine UA 1+ (Normal); Ketones Urine Negative (Negative); Leukocyte Esterase Urine Negative (Negative); Nitrate Urine Negative (Negative); Protein Urine Trace (Negative); Urine Appearance Clear (CLEAR); Urine Color Yellow (Yellow); pH Urine 7.5 (5-7)
[2023-12-08 15:58] LABS: Add Urine Microscopic? YES; Bacteria Urine None Seen /hpf; Hyaline Casts Urine 0.81 /lpf; RBC Urine 0-2 /hpf (0-2); Squamous Epithelial Cell Urine 0-5 /hpf (0-5); WBC Urine 0-5 /hpf (0-5)
[2023-12-08 16:01] LABS: Amphetamines Screen Urine Negative (Negative); Barbiturates Screen Urine Negative (Negative); Benzodiazepines Screen Urine Negative (Negative); Cocaine Screen Urine Negative (Negative); Opiate Screen Urine Negative (Negative); PCP Screen Urine Negative (Negative); THC Screen Urine Negative (Negative)
[2023-12-08 16:08] LABS: Specific Gravity, Urine 1.033 (1.005-1.030)
--- NOTE | 2023-12-08 17:22 | P.HP_ITS ---
Providers/Chief Complaint 2 Admitting Physician: Malachi Prince MD Chief Complaint: LT Side Loss of feeling below the knee History of Present Illness Devang Kraus is a 58 year old male with a past medical history of type 2 diabetes mellitus, atrial fibrillation currently off Xarelto due to affordability issues, neuropathy, chronic back pain status post 2 back surgeries, who presents [facility] due to acute onset left lower extremity weakness. Patient tells me that today at roughly noon time, he had gotten up to put a bowl in the sink, when he did not feel well, felt unsteady on his feet, so he went down to sit in his chair, he tells me that he was starting to lean towards the left side, feeling that he would fall out of his chair, so he tried to get up out of the chair when he noticed that he had no strength in his left leg, he had to use his hands to move his left leg, all he does not report any sensory loss, but was unable to get up out of the chair due to acute onset left leg weakness, no left upper extremity weakness, no facial droop no slurring of words, he has a chronic left lid lag, no nausea, no vomiting, no worsening of his back pain no urinary continence, no bowel incontinence no saddle perineal anesthesia, no recent falls, no recent injuries, no prior history of strokes, when EMS arrived they checked his blood sugars, his blood sugars were within normal limits, he does report that he was on Xarelto for his a history of atrial fibrillation but after moving from [place], he was not able to afford it so he has not been using Xarelto in over a year, denies being on any other blood thinners Review of Systems 2 Const: Denies: fever(s) Eyes: Denies: change in vision Card: Denies: chest pain Resp: Denies: dyspnea GI: Denies: abdominal pain : Denies: flank pain Musc: Reports: muscle weakness; Denies: neck pain or back pain Neuro: Reports: weakness in extremities, lack of coordination and difficulty walking; Denies: headache(s), numbness in extremities, sensory changes, frequent falls, dizziness, vertigo, confusion, Slurred speech present, difficulty communicating thoughts or seizure-like activity Psych: Denies: anxiety Endo: Denies: polyuria Medications/Allergies Home Medications Medication Instructions Recorded Confirmed Last Taken Type diabetic shoes with inserts #1 ea 09/08/23 11/23/23 Unknown Rx amlodipine 10 mg tablet 10 mg PO DAILY #30 tabs 11/04/23 11/23/23 Unknown Rx atorvastatin 20 mg tablet 20 mg PO DAILY #30 tabs 11/04/23 11/23/23 Unknown Rx carvedilol 25 mg tablet 25 mg PO BID #60 tabs 11/04/23 11/23/23 Unknown Rx cyanocobalamin (vitamin B-12) 1,000 mcg IM .every 2 weeks #3 mL 11/04/23 11/23/23 Unknown Rx 1,000 mcg/mL injection solution dulaglutide 1.5 mg/0.5 mL 1.5 mg (0.5 mL) SUBCUT .weekly #2 11/04/23 11/23/23 Unknown Rx subcutaneous pen injector mL (Trulicity) furosemide 40 mg tablet 40 mg PO DAILY #30 tabs 11/04/23 11/23/23 Unknown Rx glipizide 10 mg tablet, extended 10 mg PO BID #60 tabs 11/04/23 11/23/23 Unknown Rx release 24 hr hydralazine 25 mg tablet 25 mg PO BID #60 tabs 11/04/23 11/23/23 Unknown Rx metformin 500 mg tablet,extended 500 mg PO BID #60 tabs 11/04/23 11/23/23 Unknown Rx release 24 hr olmesartan 40 mg tablet 40 mg PO DAILY #30 tabs 11/04/23 11/23/23 Unknown Rx pregabalin 75 mg capsule (Lyrica) 75 mg PO TID #90 caps 11/04/23 11/23/23 Unknown Rx potassium chloride 10 mEq 10 meq PO DAILY #30 caps 11/09/23 11/23/23 Unknown Rx capsule,extended release cyclobenzaprine 10 mg tablet 10 mg PO .qhs #30 tabs 11/23/23 11/23/23 Unknown Rx Allergies Allergy/AdvReac Type Severity Reaction Status Date / Time No Known Allergies Allergy Verified 11/11/23 14:15 PFSH Acute 2 PFSH: Medical History A-fib Diabetic neuropathy Diabetes mellitus Gout Hypertension Surgical History History of back surgery Family History Other Cancer Social History Smoking and tobacco/nicotine status: never used tobacco/nicotine Second hand smoke exposure: Yes Alcohol intake: never Substance/Drug Use: never Caregiver/support person: Yes Lives independently: Yes Household members: spouse Marital status: service: No Current occupational status: disabled Do you think of yourself as: Straight/Heterosexual Current gender identity: Male Special jewels needs: No Agree to transfusion: Yes Vitals/I&O/Wt Last Vital Signs Temp 97.6 F 12/08/23 13:38 Pulse 60 12/08/23 17:08 Resp 96 H 12/08/23 17:06 BP 164/113 12/08/23 17:08 Pulse Ox 97 12/08/23 17:08 O2 Del Method Room Air 12/08/23 17:08 12/08/23 12/08/23 12/08/23 06:59 14:59 22:59 Intake Total 1000 / 1000 Balance 1000 / 1000 Weight last 48 hrs Weight 123.377 kg Physical Exam 2 Const: COMMON NORMALS: no acute distress and patient oriented x3 HENMT: COMMON NORMALS: normocephalic HEAD & SCALP: normocephalic Eye: COMMON NORMALS: Equal, round and reactive pupils present and EOMs intact bilaterally OTHER: Chronic left lid lag Neck/C-Spine: COMMON NORMALS: no JVD Lymph: LYMPHATIC: no lymphadenopathy noted Resp: COMMON NORMALS: normal respiratory effort, No retractions, No use of accessory muscles and clear to auscultation bilaterally AUSCULTATION: clear to auscultation bilaterally Cardio: COMMON NORMALS: regular rate, regular rhythm, S1 normal heart sound present and S2 normal heart sound present RATE: regular rate RHYTHM: r egular rhythm HEART SOUNDS: S1 normal heart sound present and S2 normal heart sound present GI: COMMON NORMALS: Normal to inspection, nondistended, normoactive bowel sounds present, Soft to palpation and non-tender PALPATION: Yes Soft to palpation and Yes No hepatosplenomegaly present Extremity: COMMON NORMALS: capillary refill normal, no clubbing, cyanosis or edema, no calf tenderness and no pedal edema Neuro: COMMON NORMALS: patient oriented x3, CN's II-XII intact bilaterally and no sensory deficits noted OTHER: Left lower extremity strength 0 out of 5, significant diminished plantar dorsiflexion, foot eversion, inversion, cannot extend at the knee, does have motion at the hip, thigh motion also significantly diminished Psych: COMMON NORMALS: mental status grossly normal Data 12/08/23 14:15 12/08/23 14:15 A&P Assessment and plan (1) Acute CVA (cerebrovascular accident): (2) A-fib: Qualifiers: Atrial fibrillation type: unspecified Qualified Code(s): I48.91 - Unspecified atrial fibrillation (3) Hyperlipidemia: (4) Hypertension: Qualifiers: Hypertension type: primary hypertension Qualified Code(s): I10 - Essential (primary) hypertension (5) Diabetes mellitus: Qualifiers: Diabetes mellitus type: type 2 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 Head CT ? CT/CT head thrombolytic [id number] IMPRESSION: 1. No evidence of intracranial hemorrhage or mass effect. 2. Moderate small vessel changes with moderate parenchymal volume loss. 3. Intracranial vascular calcification. 4. Chronic wedge-shaped infarct LEFT cerebellum. 5. No acute intracranial findings. -CT head and neck ? CT/CT angio headneck* [id number] IMPRESSION: 1. No significant cervical ICA stenosis. 2. No evidence of proximal flow-limiting intracranial stenosis. Plan -Monitor in ICU -tPA precautions -Monitor blood pressures closely, treat if systolic greater than 180 or diastolic greater than 105 -Telemetry monitoring -Repeat head CT in 24 hours -Will discuss with neurology when to resume Xarelto -DVT prophylaxis in 24 hours -Aspirin in 24 hours -Start statin -Cardiac echo -Low-dose sliding scale ? Lipid panel, TSH -Nurse bedside dysphagia eval ? Neurochecks ? Aspiration precautions -PT OT -Full code -SCDs for DVT prophylaxis Attestations 2 Medical Necessity Statement*: Patient requires hospitalization, inpatient, greater than 2 midnights, for acute CVA status post TNKase Diagnoses Acute CVA (cerebrovascular accident) I63.9 Atrial fibrillation, unspecified type I48.91 Atrial fibrillation type: unspecified Hyperlipidemia E78.5 Primary hypertension I10 Hypertension type: primary hypertension Type 2 diabetes mellitus with diabetic polyneuropathy, without long-term current use of insulin E11.42 Diabetes mellitus type: type 2 Diabetes mellitus termite control technician insulin use: without senior living use Diabetes mellitus complication status: with neurologic complications Diabetes mellitus complication detail: with polyneuropathy
--- NOTE | 2023-12-08 17:48 | USCV_ITS ---
Devang Kraus Age: 58 Gender: M : 1965 Exam Date: 12/08/2023 22:23 Ordering Phys: Malachi Prince MD Technologist: JEFFREY Exam Location: [facility] [place] Indication: CVA, left lower extremity paralysis, history of Afib, DM, HTN, HL BP: 170 / 97 HR: 79 Rhythm: Atrial fibrillation Technical Quality: Adequate MEASUREMENTS (Male / Female) Normal Values 2D ECHO LV Diastolic Diameter PLAX 4.9 cm 4.2 - 5.9 / 3.9 - 5.3 cm IVS Diastolic Thickness 2.7 cm 0.6 - 1.0 / 0.6 - 0.9 cm IVS Systolic Thickness 3.2 cm LVPW Diastolic Thickness 2.0 cm 0.6 - 1.0 / 0.6 - 0.9 cm LVPW Systolic Thickness 2.7 cm LVOT Diameter 2.0 cm LV Ejection Fraction 2D Teich 62.9 % LV Ejection Fraction MOD 4C 52.5 % LV Ejection Fraction MOD 2C 55.2 % LV Ejection Fraction 2C AL 59.3 % LA Diameter 6.7 cm Aorta at Sinotubular Diameter 3.3 cm IVC Diameter 1.1 cm M-MODE LA Ao Ratio MM 1.6 AV Cusp Separation MM 2.2 cm DOPPLER AV Peak Velocity 141.0 cm/s LVOT Peak Velocity 92.0 cm/s AV Area Cont Eq vti 2.1 cm squared AV Area Cont Eq pk 2.0 cm squared MV Peak Velocity 99.0 cm/s MV Area PHT 2.9 cm squared Mitral E to A Ratio 779.0 TR Peak Velocity 252.0 cm/s TR Peak Gradient 25.4 mmHg TV Peak E Velocity 55.0 cm/s Right Atrial Pressure 10.0 mmHg Pulmonary Artery Systolic Pressu 35.4 mmHg PV Peak Velocity 79.0 cm/s FINDINGS Left Ventricle Normal left ventricular size and systolic function, EF 55%, visual.moderate left ventricular hypertrophy. Right Ventricle Some thickening of the right ventricular free wall. Normal RV ejection fraction Right Atrium Moderately increased right atrial size. Left Atrium Moderately increased left atrial size. Thickened interatrial septum-suggesting lipomatous dystrophy Mitral Valve Mild mitral annular calcification. Thickened mitral valve. Aortic Valve Thickened aortic valve. Trace aortic valve regurgitation. Tricuspid Valve No gross morphology abnormalities Pulmonic Valve Trace to mild pulmonic regurgitation-at least 2 jets Pericardium No pericardial effusion. Aorta Normal aortic annulus size. IVC Normal inferior vena cava. CONCLUSIONS Normal left ventricular size and systolic function, EF 55%, visual.moderate left ventricular hypertrophy. Some thickening of the right ventricular free wall. Normal RV ejection fraction. 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 Trace aortic valve regurgitation. Trace to mild pulmonic regurgitation-at least 2 jets. There is no pericardial effusion. There are no intracardiac masses. The above features may suggest some form of hypertrophic cardiomyopathy, consider amyloid heart disease. Dr Carlos Enrique Damon MD FACC (Electronically Signed) Final Date: 09 December 2023 07:27 S
[2023-12-08] MEDS: sodium chloride 0.9% 1,000 ML 75 ML IV (18:04)
[2023-12-08] MEDS: pantoprazole 40 mg SDV IVP (18:07)
[2023-12-08 18:37] LABS: Chol HDL Ratio 3.74 mg/dL (1.0-5.00); Cholesterol 101 mg/dL (0-200); HDL Cholesterol 27 mg/dL (60-100); LDL Cholesterol Calculated 45 mg/dL (50-129); LDL HDL Ratio 1.67 RATIO (0.00-3.22); Thyroid Stimulating Hormone 1.43 uIU/mL (0.27-4.20); Triglycerides 146 mg/dL (0-150)
[2023-12-08 18:41] LABS: Glucose Point of Care 158 mg/dL (70-110)
[2023-12-08] MEDS: insulin lispro 100 unit/1 mL SUBCUT (19:09)
--- NOTE | 2023-12-08 19:47 | PM.SAN ---
Stroke Alert Activation ED Arrival Date: 12/08/23 ED Arrival Time: 13:38 Last Known Normal/at Baseline: 1-2 hours ago Other Last Known Well Infomation: A stroke alert was called at 1409 and I called the emergency room and spoke with JONY Quiroz. She reported that the patient presented with weakness of the left leg and no other findings, suggesting an anterior cerebral artery stroke. It was Ms. Casanova's impression that the patient was compliant on Xarelto 20 mg daily. We agreed to check on his compliance but go ahead with CT angiogram because he had significant left leg weakness, was unlikely to be able to walk with such severe weakness and high likelihood of anterior cerebral artery occlusion that might be amenable to embolectomy. I waited for his studies to be completed and reviewed those on the monitor and found no evidence of vessel occlusion. I called back to the ER to learn whether the patient had improved since there was no sign of edema in the anterior cerebral artery distribution nor any sign of clot. I was informed that his weakness had not changed and that Ms. Casanova had determined that the patient was not taking the blood thinner because he did not have the funds to cover the cost and did not realize that we had a 340B program that would make it affordable for him. I came directly to the emergency department where the nurse was poised to give his TNK and he received a bolus at 1535 while I was completing his stroke scale. His stroke findings were significant because of profound weakness in the left leg. Bolus of TNK was given at 1535. Stroke Alert Activated by: JONY Quiroz He was seen in triage initially Stroke Alert Activation Time: 14:09 Stroke MD @ Bedside Time: 14:10 NIH Stroke Scale Time: 15:30 NIH stroke score NIHSS: Level Of Consciousness - 1a: 0 Level Of Consciousness Questions - 1b: Both Correct Level Of Consciousness Commands - 1c: Both Correct Best Gaze - 2: Normal Visual Hernandez - 3: No Visual Loss Facial Palsy - 4: Normal Motor Arm Right - 5: No Drift Motor Arm Left - 5: No Drift Motor Leg Right - 6: No Drift Motor Leg Left - 6: Effort Against [place] Limb Ataxia - 7: Absent Sensory - 8: Normal Best Language - 9: No Aphasia Dysarthia - 10: Normal Extinction And Inattention - 11: 0 Score: Total Score: 2 Stroke Alert Data/Treatment Time to CT of Head: 14:23 CT Results Time: 14:32 CT Impression: CTA HEAD AND NECK 1. No evidence of intracranial hemorrhage or mass effect. 2. Moderate small vessel changes with moderate parenchymal volume loss. 3. Intracranial vascular calcification. 4. Chronic wedge-shaped infarct LEFT cerebellum. 5. No acute intracranial findings. RIGHT: RIGHT common artery is patent. No significant RIGHT ICA stenosis. RIGHT ICA is patent to the skull base. LEFT: LEFT common carotid artery is patent. No significant LEFT ICA stenosis. LEFT ICA is patent to the skull base. Codominant and patent vertebral arteries bilaterally. Proximal basilar artery is patent. Patent LEFT posterior communicating artery. Normal vascularity to the SHOEMAKER APPRENTICE territory bilaterally. Both ICAs are patent at the skull base. Small LEFT A1 segment. Normal vascularity to the NATI and MCA territories bilaterally. No evidence of proximal flow-limiting stenosis. Chronic wedge-shaped LEFT cerebellar infarct. Silicone injection LEFT orbit. Reversal of normal cervical lordosis with moderate spondylitic changes. Disc osteophyte protrusion C4-5 with moderate central canal stenosis. CT/CT angio headneck* [id number] IMPRESSION: 1. No significant cervical ICA stenosis. 2. No evidence of proximal flow-limiting intracranial stenosis. Dictated By: Niranjan Macias MD Signed By: Niranjan Macias MD Signed Date/Time: 12/08/23 Stroke Risk Factors: atrial fibrillation, hypertension, obesity and diabetes mellitus tPA Started Time: tPA Started - Time: 15:35 tPA Admin Prior to Arrival: No Patient & Family Educated on: Cause of Stroke, Risk Factors, Treament Plan, Stroke Education Booklet and tPA Risks/Benefits Other Patient & Family Education: I went over the stroke book with the patient and his and took time to answer questions. I explained the blood vessel involvement and the likelihood that his stroke was a result of atrial fibrillation. I explained that he would need to be on Xarelto or apixaban (he prefers Xarelto) and that we could obtain it through the 340B program in the future. I went over risk for stroke and composed an individual risk profile for him Other Information: Delay in treatment due to misinformation about patient being on Xarelto and then because I thought he was on Xarelto there was a delay imposed by completing his CT angiogram. Critical Care Time Critical Care Time: 30 - 74 mins A&P Assessment and plan (1) Acute right arterial ischemic stroke, anterior cerebral artery (NATI): The patient presented with exclusive weakness of his left leg which is an unusual stroke syndrome and he was placed on a routine exam by triage left leg weakness. Fortunately, Damari Casanova picked up that this looks like a stroke and called a stroke alert and talked with me. Unfortunately, we still were hindered by the fact that the patient's thought that his diabetic medication was a blood thinner or in her haste she thought it was and there was a delay imposed by completing a CTA thinking that he was not a candidate for thrombolytic. There would be some debate about treating with thrombolytic because his NIH stroke scale score was only 2, but he had severe weakness with inability to stand up and this would have very serious implications for his health going forward. We are still able to treat him within 3 and half hours of onset of his symptoms. (2) A-fib: Almost certainly the cause of his stroke. His blood vessels show little bit of calcification but no stenosis. 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 The patient agreed to be treated and I explained that it was standard of care. He showed some recovery of function during my exam with slight ability to elevate the left leg from the stretcher. Coding Level of Care Code Acute Code for [facility] Fwd Diagnoses Acute right arterial ischemic stroke, anterior cerebral artery (NATI) I63.521 Atrial fibrillation, unspecified type I48.91 Atrial fibrillation type: unspecified Primary hypertension I10 Hypertension type: primary hypertension Type 2 diabetes mellitus with diabetic polyneuropathy, without long-term current use of insulin E11.42 Diabetes mellitus type: type 2 Diabetes mellitus penitentiary insulin use: without equipment operator intermodal yard use Diabetes mellitus complication status: with neurologic complications Diabetes mellitus complication detail: with polyneuropathy
--- NOTE | 2023-12-08 20:11 | PC.NURSE ---
Event: At approximately 1900 this nurse was receiving report when a loud noise was heard from the patient room. This nurse along with two others ran to the room to find the patient on the ground to the left of the bed. Patient was immediately assessed and, with the help of two nurses, was helped back into bed. Patient stated he was trying to use the urinal and accidentally put weight on his left leg, the extremity that is affected by the stroke. After patient was placed back into bed, a neuro assessment was completed by this nurse. Patient was alert and oriented to person, place, time, and situation. Patient had no complaints of pain and stated he did not hit his head, no visible signs of head trauma or injury, vital signs WNL. Physician was notified and gave orders to recheck neuro status in one hour, if normal, continue neuro assessments as scheduled.
[2023-12-08] MEDS: pregabalin 75 mg Capsule PO (20:55)
[2023-12-08 23:10] LABS: Glucose Point of Care 130 mg/dL (70-110)
--- NOTE | 2023-12-08 23:30 | XRR_ITS ---
PROCEDURE INFORMATION: Exam: XR Right Knee Exam date and time: 12/09/2023 1:02 AM Age: 58 years old Clinical indication: Pain; Knee; Right; Additional info: Right knee pain TECHNIQUE: Imaging protocol: Radiologic exam of the right knee. Views: 3 views. COMPARISON: [place] [id number] 09/21/2023 12:15 PM FINDINGS: Bones/joints: No acute fracture or dislocation. Severe tricompartmental degenerative changes with joint space narrowing and osteophytes. Focal bony defect at the lateral femoral condyle. Joint effusion. Soft tissues: Unremarkable. XR/XR knee RT 3V* [id number] IMPRESSION: 1. Indeterminate focal bony defect at the lateral femoral condyle which may be chronic. Recommend CT correlation. 2. Severe degenerative joint disease with joint effusion.
[2023-12-09] VITALS (72 sets, daily range): BP systolic 139–211; BP diastolic 77–139; PULSE 54–99; RESP 9–28; TEMP 36.6–36.7; O2SAT 89–98; BMI 31.0
--- NOTE | 2023-12-09 00:51 | PC.NURSE ---
Right Knee xray: Patient was complaining of right knee pain, states pain level is 2/10 when not moving and 8/10 when moved, a small reddened area was noted on patient's knee. Dr. Platt was notified and gave telephone orders for a right knee xray.
[2023-12-09] MEDS: sodium chloride 0.9% 1,000 ML 75 ML IV (07:12)
[2023-12-09 07:41] LABS: Glucose Point of Care 98 mg/dL (70-110)
[2023-12-09] MEDS: atorvastatin 40 mg Tablet PO (08:23)
[2023-12-09] MEDS: pregabalin 75 mg Capsule PO ×3 (08:25→20:35)
--- NOTE | 2023-12-09 09:27 | PC.SOCIAL ---
IMM Update Pg. 2 of IMM updated and reviewed with patient, who verbalized understanding. Copy provided.
[2023-12-09 11:50] LABS: Glucose Point of Care 160 mg/dL (70-110)
[2023-12-09] MEDS: insulin lispro 100 unit/1 mL SUBCUT (12:31)
--- NOTE | 2023-12-09 12:35 | CTR_ITS ---
PROCEDURE INFORMATION: Exam: CT Right Lower Extremity, Knee Exam date and time: 12/09/2023 3:38 PM Age: 58 years old Clinical indication: Injury or trauma; Fall; Other: Pain TECHNIQUE: Imaging protocol: CT of the right lower extremity without contrast was performed. Exam focused on the knee. Radiation optimization: All CT scans at this facility use at least one of these dose optimization techniques: automated exposure control; mA and/or kV adjustment per patient size (includes targeted exams where dose is matched to clinical indication); or iterative reconstruction. COMPARISON: CR (LOW EXM, ) 12/09/2023 1:02 AM RADIATION DOSE METRICS: Total DLP (mGy-cm): 399.99 FINDINGS: Bones/joints: Severe tricompartmental osteoarthritis, worst in the medial femorotibial compartment where there is subchondral sclerosis and extensive subchondral cystic change. No evidence of fracture or subluxation. Small-moderate joint effusion. Irregularity of the anterior horn lateral meniscus and body-posterior horn of the medial meniscus suspicious for complex tears. Soft tissues: Muscles and tendons are grossly intact. Soft tissue edema without evidence of fluid collection or hematoma. [address]/CT knee RT wo con* [id number] IMPRESSION: 1. Severe osteoarthritis without evidence of fracture or subluxation. 2. Suspected complex meniscal tears.
[2023-12-09] MEDS: hyDRALAzine 25 mg Tablet PO (13:06)
[2023-12-09] MEDS: amlodipine 10 mg Tablet PO (15:19)
--- NOTE | 2023-12-09 15:30 | CTR_ITS ---
PROCEDURE INFORMATION: Exam: CT Head Without Contrast Exam date and time: 12/09/2023 3:33 PM Age: 58 years old Clinical indication: Other: Post tpa; Additional info: CVA S/P tpa TECHNIQUE: Imaging protocol: Computed tomography of the head without contrast. Radiation optimization: All CT scans at this facility use at least one of these dose optimization techniques: automated exposure control; mA and/or kV adjustment per patient size (includes targeted exams where dose is matched to clinical indication); or iterative reconstruction. COMPARISON: CT angio headneck* [id number] 12/08/2023 2:20 PM RADIATION DOSE METRICS: Total DLP (mGy-cm): 1171.98 FINDINGS: Brain: No intracranial hemorrhage. There is global parenchymal volume loss. Periventricular white matter hypoattenuation is nonspecific but most likely due to small vessel disease. No evidence of acute territorial infarct or cerebral edema. No mass effect or midline shift. Cerebral ventricles: Prominent ventricles likely secondary to volume loss. Paranasal sinuses: Visualized sinuses are unremarkable. No fluid levels. Mastoid air cells: Visualized mastoid air cells are well aerated. Orbital cavities: Unchanged density filling the left globe. Bones: Unremarkable. No acute fracture. Soft tissues: Unremarkable. CT/CT head wo con* [id number] IMPRESSION: No acute intracranial findings.
[2023-12-09 16:34] LABS: Basophils # 0.1 10^3/uL (0.0-0.1); Basophils % 0.7 %; Eosinophils # 0.2 10^3/uL (0.0-0.8); Eosinophils % 1.4 %; Hematocrit 43.5 % (37-53); Lymphocytes # 1.2 10^3/uL (0.8-4.8); Lymphocytes % 10.1 %; Mean Corpuscular HGB Conc 35.9 g/dL (30-55); Mean Corpuscular Hemoglobin 29.8 pg (27-33); Mean Platelet Volume 10.3 fL (7.4-10.4); Monocytes % 8.3 %; Neutrophils # 9.44 10^3/uL (1.8-7.7); Neutrophils % 79.2 %; Nucleated Red Blood Cells % 0 %; Platelet Count 249 10^3/cmm (157-399); Red Blood Count 5.24 10^6/uL (3.85-5.65); Red Cell Distribution Width 13.1 % (12.1-15.1); White Blood Count 11.92 10^3/uL (3.29-11.43)
--- NOTE | 2023-12-09 16:47 | P.PN_ITS ---
Subjective 2 Subjective: Patient was seen this morning, he tells me that last night he was able to lift his leg, left leg up off the bed, this morning his left leg continues to have weakness but he tells me that it fluctuates, he can he shows me dorsal and plantar flex this morning, overnight at about 7 PM, patient was trying to use the urinal and actually put weight on his left leg and fell to the ground, this morning denies any headache, no blurry vision, no nausea, vomiting Vitals/I&O/Wt Last Vital Signs Temp 97.8 F 12/09/23 09:30 Pulse 86 12/09/23 16:15 Resp 15 12/09/23 16:30 BP 155/116 12/09/23 16:30 Pulse Ox 94 12/09/23 16:30 O2 Del Method Room Air 12/09/23 16:30 12/09/23 12/09/23 12/09/23 06:59 14:59 22:59 Intake Total 928.75 / 1928.75 176.25 / 176.25 Output Total 400 / 400 Balance 928.75 / 1278.75 -223.75 / -223.75 Weight last 48 hrs Weight 124.965 kg Weight 124.738 kg Weight 123.377 kg Physical Exam 2 Const: COMMON NORMALS: no acute distress and patient oriented x3 Resp: COMMON NORMALS: normal respiratory effort, No retractions, No use of accessory muscles and clear to auscultation bilaterally AUSCULTATION: clear to auscultation bilaterally Cardio: COMMON NORMALS: regular rate, regular rhythm, S1 normal heart sound present and S2 normal heart sound present RATE: regular rate RHYTHM: r egular rhythm HEART SOUNDS: S1 normal heart sound present and S2 normal heart sound present GI: COMMON NORMALS: Normal to inspection, nondistended, normoactive bowel sounds present and non-tender Extremity: COMMON NORMALS: no pedal edema Neuro: COMMON NORMALS: patient oriented x3 and CN's II-XII intact bilaterally OTHER: Left lower extremity strength continues to be diminished, does have some strength in dorsi and plantarflexion Psych: COMMON NORMALS: mental status grossly normal Data 12/09/23 16:16 12/08/23 14:15 A&P Assessment and plan (1) Acute CVA (cerebrovascular accident): (2) A-fib: Qualifiers: Atrial fibrillation type: unspecified Qualified Code(s): I48.91 - Unspecified atrial fibrillation (3) Hyperlipidemia: (4) Hypertension: Qualifiers: Hypertension type: primary hypertension Qualified Code(s): I10 - Essential (primary) hypertension (5) Diabetes mellitus: Qualifiers: Diabetes mellitus type: type 2 Diabetes mellitus skilled nursing insulin use: without skilled nursing use Diabetes mellitus complication status: with neurologic complications Diabetes mellitus complication detail: with polyneuropathy Qualified Code(s): E11.42 - Type 2 diabetes mellitus with diabetic polyneuropathy Plan Acute CVA -Left lower extremity weakness -NIH stroke scale on admission was 4 -Patient has been off Xarelto for over a year with history of atrial fibrillation, due to affordability issues -Status post TNKase -Evaluated by neurology in the emergency room ? Head CT ? CT/CT head thrombolytic [id number] IMPRESSION: 1. No evidence of intracranial hemorrhage or mass effect. 2. Moderate small vessel changes with moderate parenchymal volume loss. 3. Intracranial vascular calcification. 4. Chronic wedge-shaped infarct LEFT cerebellum. 5. No acute intracranial findings. -CT head and neck ? CT/CT angio headneck* [id number] IMPRESSION: 1. No significant cervical ICA stenosis. 2. No evidence of proximal flow-limiting intracranial stenosis. Plan -Monitor in ICU -tPA precautions -Monitor blood pressures closely, treat if systolic greater than 180 or diastolic greater than 105 -After 24 hours can resume patient's blood pressure medication slowly as patient continues to have episodes of hypertension systolics greater than 180?greater than 105 -Telemetry monitoring -Repeat head CT no acute bleed - resume Xarelto in 7 days -DVT prophylaxis -Aspirin -Start statin -Cardiac echo -Low-dose sliding scale -Nurse bedside dysphagia eval ? Neurochecks ? 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
[2023-12-09 16:48] LABS: Fibrinogen 302 mg/dL (174-498)
--- NOTE | 2023-12-09 16:50 | XRR_ITS ---
PROCEDURE INFORMATION: Exam: XR Left Knee Exam date and time: 12/09/2023 5:58 PM Age: 58 years old Clinical indication: Pain and injury or trauma; Fall; Blunt trauma; Knee; Left TECHNIQUE: Imaging protocol: Radiologic exam of the left knee. Views: 1 or 2 views. COMPARISON: [place] [id number] 09/21/2023 12:15 PM FINDINGS: Bones/joints: Mild-moderate patellofemoral osteoarthritis. No evidence of acute fracture or subluxation. Small joint effusion. Soft tissues: No gross soft tissue abnormality. XR/XR knee LT 1-2V [id number] IMPRESSION: 1. Small joint effusion without evidence of acute fracture or subluxation. CT may be helpful for further detail if clinically warranted.
[2023-12-09 16:52] LABS: Alanine Aminotransferase 15 U/L (0-41); Alkaline Phosphatase 87 U/L (40-130); Anion Gap 15.1 (5-19); Aspartate Amino Transferase 14 U/L (0-40); Blood Urea Nitrogen 9 mg/dL (6-20); Calcium 8.6 mg/dL (8.5-10.5); Carbon Dioxide 27 mmol/L (22-29); Chloride 102 mmol/L (98-107); Creatinine Clr Calc Pharmacy 120.9568; Globulin 2.6 g/dL (1.3-4.6); Glomerular Filtration Rate 76.7 mL/min (90-130); Glucose 115 mg/dL (65-115); Magnesium 1.5 mg/dL (1.7-2.3); Osmolality Calculated 292 mOsm/kg (285-295); Phosphorus 2.9 mg/dL (2.5-4.5); Potassium 3.1 mmol/L (3.5-5.1); Sodium 141 mmol/L (136-145); Total Bilirubin 1.6 mg/dL (0.15-1.2); Total Protein 6.6 g/dL (6.6-8.7)
[2023-12-09] MEDS: pantoprazole 40 mg SDV IVP (17:24)
[2023-12-09] MEDS: aspirin 81 mg EC Tablet PO (17:24)
[2023-12-09] MEDS: carvedilol 25 mg Tablet PO (17:24)
[2023-12-09] MEDS: potassium chloride ER 20 mEq Tablet 40 MEQ PO (17:24)
[2023-12-09 17:31] LABS: Glucose Point of Care 116 mg/dL (70-110)
--- NOTE | 2023-12-09 18:56 | PC.NURSE ---
Report was given to DOMONIQUE Calderon. Patient was transferred to [facility] without any complications. Patient was stable.
--- NOTE | 2023-12-09 19:10 | PM.MISC ---
Miscellaneous Note Purpose of Documentation: I reviewed his CT scan of the head from today. Note: I reviewed his CT scan of the head. He has subtle changes from right anterior cerebral artery stroke with slight white matter hypoattenuation superiorly on the right, consistent with his symptoms and in the distribution of the anterior cerebral artery. This is new from yesterday. There is no sign of bleeding. He has fallen twice since he got here because he seems only partially aware of the weakness in his right leg. I agree with everything you have outlined on your plan. He should follow-up in my clinic within a week or 2. 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
[2023-12-09] MEDS: enoxaparin 40 mg/0.4 mL Syringe SUBCUT (20:36)
[2023-12-09 20:48] LABS: Glucose Point of Care 155 mg/dL (70-110)
[2023-12-10] VITALS (14 sets, daily range): BP systolic 139–174; BP diastolic 73–106; PULSE 56–87; RESP 16–20; TEMP 36.5–36.9; O2SAT 93–96; BMI 31.2
[2023-12-10] MEDS: hyDRALAzine 25 mg Tablet PO ×2 (00:09→11:52)
[2023-12-10 05:11] LABS: Basophils # 0.1 10^3/uL (0.0-0.1); Basophils % 0.8 %; Eosinophils # 0.2 10^3/uL (0.0-0.8); Eosinophils % 1.9 %; Hematocrit 46.5 % (37-53); Lymphocytes # 1.6 10^3/uL (0.8-4.8); Lymphocytes % 16.1 %; Mean Corpuscular HGB Conc 35.3 g/dL (30-55); Mean Corpuscular Hemoglobin 29.5 pg (27-33); Mean Corpuscular Volume 83.6 fl (82-101); Mean Platelet Volume 10.3 fL (7.4-10.4); Monocytes # 0.9 10^3/uL (0.2-0.9); Monocytes % 9.3 %; Neutrophils # 7.28 10^3/uL (1.8-7.7); Neutrophils % 71.6 %; Nucleated Red Blood Cells % 0 %; Platelet Count 255 10^3/cmm (157-399); Red Blood Count 5.56 10^6/uL (3.85-5.65); Red Cell Distribution Width 13.1 % (12.1-15.1); White Blood Count 10.15 10^3/uL (3.29-11.43)
[2023-12-10 05:29] LABS: Alanine Aminotransferase 15 U/L (0-41); Albumin Level 3.8 g/dL (3.5-5.2); Alkaline Phosphatase 92 U/L (40-130); Aspartate Amino Transferase 14 U/L (0-40); Blood Urea Nitrogen 8 mg/dL (6-20); Calcium 8.5 mg/dL (8.5-10.5); Carbon Dioxide 27 mmol/L (22-29); Chloride 102 mmol/L (98-107); Creatinine Clr Calc Pharmacy 134.8095; Globulin 2.7 g/dL (1.3-4.6); Glomerular Filtration Rate 86.7 mL/min (90-130); Glucose 110 mg/dL (65-115); Magnesium 1.7 mg/dL (1.7-2.3); Osmolality Calculated 289 mOsm/kg (285-295); Phosphorus 2.8 mg/dL (2.5-4.5); Sodium 140 mmol/L (136-145); Total Bilirubin 1.8 mg/dL (0.15-1.2); Total Protein 6.5 g/dL (6.6-8.7)
[2023-12-10] MEDS: potassium chloride ER 20 mEq Tablet 40 MEQ PO (06:05)
[2023-12-10 06:14] LABS: Glucose Point of Care 113 mg/dL (70-110)
[2023-12-10] MEDS: losartan 50 mg Tablet 25 MG PO (09:33)
[2023-12-10] MEDS: aspirin 81 mg EC Tablet PO (09:33)
[2023-12-10] MEDS: pregabalin 75 mg Capsule PO ×3 (09:33→21:47)
[2023-12-10] MEDS: atorvastatin 40 mg Tablet PO (09:34)
[2023-12-10] MEDS: amlodipine 10 mg Tablet PO (09:34)
[2023-12-10] MEDS: carvedilol 25 mg Tablet PO ×2 (09:34→17:23)
[2023-12-10 11:29] LABS: Glucose Point of Care 165 mg/dL (70-110)
[2023-12-10] MEDS: insulin lispro 100 unit/1 mL SUBCUT ×2 (11:51→17:23)
--- NOTE | 2023-12-10 15:44 | PM.PN ---
Subjective Subjective: Patient was seen this morning, he denies any fevers, no chills, no cough, no nausea, no vomiting, no headache, no blurry vision, he tells me that last night he was able to lift both legs off the bed, but this morning he does have weakness in the left leg, he does have significant weakness with dorsal and plantarflexion, foot inversion, eversion, the anterior posterior compartments of the lower leg strength is significantly diminished he has good hip strength discussed ambulating with the help of nursing staff using a walker as he is fallen during his hospitalization we will make sure that he does not have any significant falls and morbidity mortality associated, we want him to do well so he must use nursing staff to help him ambulate, or always use a walker for changing position, for transfers, for ambulation, he voiced understanding, all questions answered Vitals/I&O/Wt Last Vital Signs Temp 97.7 F 12/10/23 11:40 Pulse 69 12/10/23 11:40 Resp 19 H 12/10/23 11:40 BP 154/73 12/10/23 11:40 Pulse Ox 96 12/10/23 11:40 O2 Del Method Room Air 12/10/23 11:40 12/10/23 12/10/23 12/10/23 06:59 14:59 22:59 Intake Total 120 / 1207.50 600 / 600 Output Total 725 / 1850 Balance -605 / -642.50 600 / 600 Weight last 48 hrs Weight 125.781 kg Weight 124.965 kg Weight 124.738 kg Physical Exam Const: COMMON NORMALS: no acute distress and patient oriented x3 Resp: COMMON NORMALS: normal respiratory effort, No retractions, No use of accessory muscles and clear to auscultation bilaterally AUSCULTATION: clear to auscultation bilaterally Cardio: COMMON NORMALS: regular rate, regular rhythm, S1 normal heart sound present and S2 normal heart sound present RATE: regular rate RHYTHM: regular rhythm HEART SOUNDS: S1 normal heart sound present and S2 normal heart sound present GI: COMMON NORMALS: Normal to inspection, nondistended, normoactive bowel sounds present and non-tender Extremity: COMMON NORMALS: no pedal edema Neuro: COMMON NORMALS: patient oriented x3 Psych: COMMON NORMALS: mental status grossly normal Data 12/10/23 04:53 12/10/23 04:53 A&P Assessment and plan (1) Acute CVA (cerebrovascular accident): (2) A-fib: Qualifiers: Atrial fibrillation type: unspecified Qualified Code(s): I48.91 - Unspecified atrial fibrillation (3) Hyperlipidemia: (4) Hypertension: Qualifiers: Hypertension type: primary hypertension Qualified Code(s): I10 - Essential (primary) hypertension (5) Diabetes mellitus: Qualifiers: Diabetes mellitus type: type 2 Diabetes mellitus manager long term care insulin use: without care home use Diabetes mellitus complication status: with neurologic complications Diabetes mellitus complication detail: with polyneuropathy Qualified Code(s): E11.42 - Type 2 diabetes mellitus with diabetic polyneuropathy Plan Acute CVA -Left lower extremity weakness -NIH stroke scale on admission was 4 -Patient has been off Xarelto for over a year with history of atrial fibrillation, due to affordability issues -Status post TNKase -Evaluated by neurology in the emergency room ? Head CT ? CT/CT head thrombolytic [id number] IMPRESSION: 1. No evidence of intracranial hemorrhage or mass effect. 2. Moderate small vessel changes with moderate parenchymal volume loss. 3. Intracranial vascular calcification. 4. Chronic wedge-shaped infarct LEFT cerebellum. 5. No acute intracranial findings. -CT head and neck ? CT/CT angio headneck* [id number] IMPRESSION: 1. No significant cervical ICA stenosis. 2. No evidence of proximal flow-limiting intracranial stenosis. -Repeat head CT 12/09/2023 no acute findings echo CONCLUSIONS Normal left ventricular size and systolic function, EF 55%, visual.moderate left ventricular hypertrophy. Some thickening of the right ventricular free wall. Normal RV ejection fraction. 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 Trace aortic valve regurgitation. Trace to mild pulmonic regurgitation-at least 2 jets. There is no pericardial effusion. There are no intracardiac masses. The above features may suggest some form of hypertrophic cardiomyopathy, consider amyloid heart disease. Plan -Moved to medical floors -Has completed tPA precautions -Slowly resume patient's blood pressure medications -Telemetry monitoring - resume Xarelto in 7 days -DVT prophylaxis Lovenox -Aspirin - statin -Cardiac echo -Low-dose sliding scale -Nurse bedside dysphagia eval -Patient had a fall, on examination right knee no significant swelling, no pain, no erythema no pain with range of motion, no reported pain, CT of the right knee CT/CT knee RT wo con* [id number] IMPRESSION: 1. Severe osteoarthritis without evidence of fracture or subluxation. 2. Suspected complex meniscal tears. ? Neurochecks ? Aspiration precautions -PT OT -Full code -SCDs for DVT prophylaxis Attestations Medical Necessity Statement*: Patient requires hospitalization for acute CVA, status post TNKase, with residual left lower extremity weakness Diagnoses Acute CVA (cerebrovascular accident) I63.9 Atrial fibrillation, unspecified type I48.91 Atrial fibrillation type: unspecified Hyperlipidemia E78.5 Primary hypertension I10 Hypertension type: primary hypertension Type 2 diabetes mellitus with diabetic polyneuropathy, without long-term current use of insulin E11.42 Diabetes mellitus type: type 2 Diabetes mellitus manager long term care insulin use: without manager long term care use Diabetes mellitus complication status: with neurologic complications Diabetes mellitus complication detail: with polyneuropathy
[2023-12-10 16:42] LABS: Glucose Point of Care 150 mg/dL (70-110)
[2023-12-10] MEDS: pantoprazole 40 mg SDV IVP (17:23)
[2023-12-10 20:32] LABS: Glucose Point of Care 150 mg/dL (70-110)
[2023-12-10] MEDS: enoxaparin 40 mg/0.4 mL Syringe SUBCUT (21:47)
[2023-12-11] VITALS (7 sets, daily range): BP systolic 120–154; BP diastolic 67–97; PULSE 62–87; RESP 16–20; TEMP 36.2–36.7; O2SAT 93–98
[2023-12-11] MEDS: hyDRALAzine 25 mg Tablet PO ×2 (00:26→12:44)
[2023-12-11 05:46] LABS: Basophils # 0.1 10^3/uL (0.0-0.1); Eosinophils # 0.3 10^3/uL (0.0-0.8); Eosinophils % 2.4 %; Hematocrit 45.3 % (37-53); Lymphocytes # 1.5 10^3/uL (0.8-4.8); Lymphocytes % 14.7 %; Mean Corpuscular HGB Conc 35.3 g/dL (30-55); Mean Corpuscular Hemoglobin 29.5 pg (27-33); Mean Corpuscular Volume 83.4 fl (82-101); Mean Platelet Volume 10.7 fL (7.4-10.4); Monocytes % 9.5 %; Neutrophils # 7.48 10^3/uL (1.8-7.7); Nucleated Red Blood Cells % 0 %; Platelet Count 240 10^3/cmm (157-399); Red Blood Count 5.43 10^6/uL (3.85-5.65); Red Cell Distribution Width 13.1 % (12.1-15.1); White Blood Count 10.37 10^3/uL (3.29-11.43)
[2023-12-11 06:17] LABS: Alanine Aminotransferase 14 U/L (0-41); Albumin Level 3.7 g/dL (3.5-5.2); Alkaline Phosphatase 91 U/L (40-130); Anion Gap 15.1 (5-19); Aspartate Amino Transferase 14 U/L (0-40); Blood Urea Nitrogen 12 mg/dL (6-20); Calcium 8.8 mg/dL (8.5-10.5); Carbon Dioxide 26 mmol/L (22-29); Chloride 104 mmol/L (98-107); Creatinine Clr Calc Pharmacy 121.3286; Globulin 2.7 g/dL (1.3-4.6); Glomerular Filtration Rate 76.7 mL/min (90-130); Glucose 130 mg/dL (65-115); Magnesium 1.8 mg/dL (1.7-2.3); Osmolality Calculated 296 mOsm/kg (285-295); Phosphorus 3.3 mg/dL (2.5-4.5); Potassium 3.1 mmol/L (3.5-5.1); Sodium 142 mmol/L (136-145); Total Bilirubin 1.9 mg/dL (0.15-1.2); Total Protein 6.4 g/dL (6.6-8.7)
[2023-12-11 06:29] LABS: Glucose Point of Care 151 mg/dL (70-110)
--- NOTE | 2023-12-11 08:32 | USR_ITS ---
PROCEDURE INFORMATION: Exam: US Abdomen, Limited; Right Upper Quadrant Exam date and time: 12/11/2023 6:15 PM Age: 58 years old Clinical indication: Screening exam; Liver, gallbladder, biliary tract, put on npo at 835 am TECHNIQUE: Imaging protocol: Real time ultrasound of the abdomen with image documentation. Limited exam focused on the right upper quadrant. COMPARISON: CT abdomen pelvis w con* [id number] 05/06/2023 7:12 PM FINDINGS: Liver: The liver is mildly enlarged measuring 18.6 cm. Gallbladder: Normal. No gallstones. There is no gallbladder wall thickening. Biliary ducts: Common bile duct is normal in caliber measuring 4 mm. Pancreas: Visualized pancreas is unremarkable. Right kidney: Subcentimeter right renal cyst. US/US gall bladder [id number] IMPRESSION: Mild hepatomegaly.
[2023-12-11 08:53] LABS: Gamma Glutamyl Transferase 12 U/L (8-61); Lipase 16 U/L (13-60)
[2023-12-11] MEDS: potassium chloride ER 20 mEq Tablet 40 MEQ PO (09:41)
[2023-12-11] MEDS: carvedilol 25 mg Tablet PO ×2 (09:43→17:15)
[2023-12-11] MEDS: atorvastatin 40 mg Tablet PO (09:43)
[2023-12-11] MEDS: losartan 50 mg Tablet 25 MG PO (09:43)
[2023-12-11] MEDS: insulin lispro 100 unit/1 mL SUBCUT ×2 (09:43→12:42)
[2023-12-11] MEDS: aspirin 81 mg EC Tablet PO (09:44)
[2023-12-11] MEDS: amlodipine 10 mg Tablet PO (09:44)
[2023-12-11] MEDS: pregabalin 75 mg Capsule PO ×3 (09:44→21:45)
[2023-12-11 10:36] LABS: Glucose Point of Care 183 mg/dL (70-110)
--- NOTE | 2023-12-11 14:00 | PC.SOCIAL ---
IMM Updated Updated pt on IMM. No questions voiced. Provided pt a copy. Initialed, dated, & timed a copy & placed in chart.
[2023-12-11] MEDS: cyanocobalamin 1,000 mcg/mL SDV 1000 MCG IM (14:39)
[2023-12-11] MEDS: prednisoLONE 1% Op Susp 5 mL Btl 1 DROP EYE-LEFT ×2 (14:39→21:42)
[2023-12-11 16:52] LABS: Glucose Point of Care 112 mg/dL (70-110)
--- NOTE | 2023-12-11 16:56 | P.PN_ITS ---
Subjective 2 Subjective: Patient was seen this morning, no acute events overnight no abdominal pain complaints, no history of alcoholism, no history of liver failure Vitals/I&O/Wt Last Vital Signs Temp 98.0 F 12/11/23 11:25 Pulse 82 12/11/23 15:59 Resp 18 12/11/23 15:59 BP 131/97 12/11/23 15:59 Pulse Ox 98 12/11/23 15:59 O2 Del Method Room Air 12/11/23 15:59 12/11/23 12/11/23 12/11/23 06:59 14:59 22:59 Intake Total 240 / 240 Output Total 380 / 380 220 / 220 Balance -380 / 940 20 / Weight last 48 hrs Weight 125.781 kg Physical Exam 2 Const: COMMON NORMALS: no acute distress and patient oriented x3 Resp: COMMON NORMALS: normal respiratory effort, No retractions, No use of accessory muscles and clear to auscultation bilaterally AUSCULTATION: clear to auscultation bilaterally Cardio: COMMON NORMALS: regular rate, regular rhythm, S1 normal heart sound present and S2 normal heart sound present RATE: regular rate RHYTHM: r egular rhythm HEART SOUNDS: S1 normal heart sound present and S2 normal heart sound present GI: COMMON NORMALS: Normal to inspection, nondistended, normoactive bowel sounds present and non-tender Extremity: COMMON NORMALS: no pedal edema Neuro: COMMON NORMALS: patient oriented x3 Psych: COMMON NORMALS: mental status grossly normal Data 12/11/23 04:34 12/11/23 04:34 A&P Assessment and plan (1) Acute CVA (cerebrovascular accident): (2) A-fib: Qualifiers: Atrial fibrillation type: unspecified Qualified Code(s): I48.91 - Unspecified atrial fibrillation (3) Hyperlipidemia: (4) Hypertension: Qualifiers: Hypertension type: primary hypertension Qualified Code(s): I10 - Essential (primary) hypertension (5) Diabetes mellitus: Qualifiers: Diabetes mellitus type: type 2 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 Head CT ? CT/CT head thrombolytic [id number] IMPRESSION: 1. No evidence of intracranial hemorrhage or mass effect. 2. Moderate small vessel changes with moderate parenchymal volume loss. 3. Intracranial vascular calcification. 4. Chronic wedge-shaped infarct LEFT cerebellum. 5. No acute intracranial findings. -CT head and neck ? CT/CT angio headneck* [id number] IMPRESSION: 1. No significant cervical ICA stenosis. 2. No evidence of proximal flow-limiting intracranial stenosis. -Repeat head CT 12/09/2023 no acute findings echo CONCLUSIONS Normal left ventricular size and systolic function, EF 55%, visual.moderate left ventricular hypertrophy. Some thickening of the right ventricular free wall. Normal RV ejection fraction. 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 Trace aortic valve regurgitation. Trace to mild pulmonic regurgitation-at least 2 jets. There is no pericardial effusion. There are no intracardiac masses. The above features may suggest some form of hypertrophic cardiomyopathy, consider amyloid heart disease. Plan -Moved to medical floors -Has completed tPA precautions -Slowly resume patient's blood pressure medications -Telemetry monitoring - resume Xarelto in 7 days -DVT prophylaxis Lovenox -Aspirin - statin -Cardiac echo -Low-dose sliding scale -Nurse bedside dysphagia eval -Patient had a fall, on examination right knee no significant swelling, no pain, no erythema no pain with range of motion, no reported pain, CT of the right knee CT/CT knee RT wo con* [id number] IMPRESSION: 1. Severe osteoarthritis without evidence of fracture or subluxation. 2. Suspected complex meniscal tears. ? Neurochecks ? Aspiration precautions -PT OT -Full code -SCDs for DVT prophylaxis Plan for today bilirubin is 1.9, will order liver function studies, gallbladder ultrasound/liver ultrasound, continue aspirin, statin, continue inpatient rehab, awaiting transfer to rehab facility Attestations 2 Medical Necessity Statement*: Patient requires hospitalization for acute CVA with residual left-sided specific and left lower extremity weakness requiring rehab, Diagnoses Acute CVA (cerebrovascular accident) I63.9 Atrial fibrillation, unspecified type I48.91 Atrial fibrillation type: unspecified Hyperlipidemia E78.5 Primary hypertension I10 Hypertension type: primary hypertension Type 2 diabetes mellitus with diabetic polyneuropathy, without long-term current use of insulin E11.42 Diabetes mellitus type: type 2 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
[2023-12-11] MEDS: pantoprazole 40 mg SDV IVP (17:15)
[2023-12-11] MEDS: acetaminophen 325 mg Tablet 650 MG PO (17:23)
[2023-12-11 20:45] LABS: Glucose Point of Care 200 mg/dL (70-110)
[2023-12-11] MEDS: enoxaparin 40 mg/0.4 mL Syringe SUBCUT (21:45)
[2023-12-12] VITALS (11 sets, daily range): BP systolic 126–159; BP diastolic 76–92; PULSE 52–98; RESP 16–21; TEMP 36.4–37; O2SAT 93–97
[2023-12-12] MEDS: hyDRALAzine 25 mg Tablet PO ×3 (01:31→23:55)
[2023-12-12 05:28] LABS: Basophils # 0.1 10^3/uL (0.0-0.1); Basophils % 0.6 %; Eosinophils # 0.2 10^3/uL (0.0-0.8); Eosinophils % 2.1 %; Hematocrit 43.2 % (37-53); Lymphocytes # 1.3 10^3/uL (0.8-4.8); Lymphocytes % 11.3 %; Mean Corpuscular Hemoglobin 29.7 pg (27-33); Mean Platelet Volume 10.8 fL (7.4-10.4); Monocytes # 1.1 10^3/uL (0.2-0.9); Neutrophils # 8.63 10^3/uL (1.8-7.7); Neutrophils % 75.4 %; Nucleated Red Blood Cells % 0 %; Platelet Count 222 10^3/cmm (157-399); Red Blood Count 5.08 10^6/uL (3.85-5.65); Red Cell Distribution Width 13.1 % (12.1-15.1); White Blood Count 11.44 10^3/uL (3.29-11.43)
[2023-12-12 05:54] LABS: Alanine Aminotransferase 16 U/L (0-41); Albumin Level 3.6 g/dL (3.5-5.2); Alkaline Phosphatase 97 U/L (40-130); Anion Gap 14.4 (5-19); Aspartate Amino Transferase 18 U/L (0-40); Blood Urea Nitrogen 15 mg/dL (6-20); Calcium 8.7 mg/dL (8.5-10.5); Carbon Dioxide 25 mmol/L (22-29); Chloride 102 mmol/L (98-107); Creatinine Clr Calc Pharmacy 101.0555; Globulin 2.4 g/dL (1.3-4.6); Glomerular Filtration Rate 62.2 mL/min (90-130); Glucose 159 mg/dL (65-115); Osmolality Calculated 290 mOsm/kg (285-295); Potassium 3.4 mmol/L (3.5-5.1); Sodium 138 mmol/L (136-145); Total Bilirubin 1.4 mg/dL (0.15-1.2)
[2023-12-12 06:24] LABS: Glucose Point of Care 160 mg/dL (70-110)
[2023-12-12] MEDS: pregabalin 75 mg Capsule PO ×3 (08:30→20:21)
[2023-12-12] MEDS: prednisoLONE 1% Op Susp 5 mL Btl 1 DROP EYE-LEFT ×3 (08:30→20:20)
[2023-12-12] MEDS: aspirin 81 mg EC Tablet PO (08:30)
[2023-12-12] MEDS: losartan 50 mg Tablet 25 MG PO (08:30)
[2023-12-12] MEDS: carvedilol 25 mg Tablet PO ×2 (08:30→17:32)
[2023-12-12] MEDS: insulin lispro 100 unit/1 mL SUBCUT ×3 (08:30→17:32)
[2023-12-12] MEDS: atorvastatin 40 mg Tablet PO (08:30)
[2023-12-12] MEDS: amlodipine 10 mg Tablet PO (08:30)
[2023-12-12] MEDS: morphine 4 mg/mL SDV 1 mL 2 MG IVP (08:37)
--- NOTE | 2023-12-12 10:57 | CTR_ITS ---
PROCEDURE INFORMATION: Exam: CT Left Lower Extremity, Knee Exam date and time: 12/12/2023 1:20 PM Age: 58 years old Clinical indication: Injury or trauma; Fall; Blunt trauma; Knee; Left TECHNIQUE: Imaging protocol: CT of the left lower extremity without contrast was performed. Exam focused on the knee. Radiation optimization: All CT scans at this facility use at least one of these dose optimization techniques: automated exposure control; mA and/or kV adjustment per patient size (includes targeted exams where dose is matched to clinical indication); or iterative reconstruction. COMPARISON: CR (LOW EXM, ) 12/09/2023 5:58 PM RADIATION DOSE METRICS: Total DLP (mGy-cm): 388.5 FINDINGS: Bones/joints: Mild-moderate tricompartmental osteoarthritis with small marginal osteophytes. No evidence of fracture or subluxation. Moderate joint effusion. There is a subcentimeter bony spur projecting inferiorly from the lateral aspect of the proximal tibial metaphysis, which may reflect an osteochondroma. Soft tissues: Severe muscular fatty atrophy of the medial gastrocnemius muscle. 1 cm Casper's cyst. Tendons are grossly intact. No evidence of fluid collection or hematoma. CT/CT knee LT wo con* [id number] IMPRESSION: 1. Mild-moderate osteoarthritis without evidence of fracture or subluxation. If there is clinical suspicion for meniscal or ligamentous injury, consider correlation with follow-up outpatient MRI. 2. 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
[2023-12-12 11:29] LABS: Glucose Point of Care 152 mg/dL (70-110)
--- NOTE | 2023-12-12 15:58 | P.PN_ITS ---
Subjective 2 Subjective: Patient was seen this morning, denies any fevers, chills, no cough, his lower extremity weakness is improving he tells me that this morning his left knee is significantly hurts him, when he had fallen a few days ago, since then he has not had any significant right knee pain, but he has developed now left pain in left knee, pain with range of motion, no clicking, no popping, on examination left knee no significant erythema, swelling, or tenderness, does report pain with range of motion Vitals/I&O/Wt Last Vital Signs Temp 97.8 F 12/12/23 12:00 Pulse 64 12/12/23 14:00 Resp 16 12/12/23 12:00 BP 159/76 12/12/23 12:00 Pulse Ox 95 12/12/23 12:00 O2 Del Method Room Air 12/12/23 12:00 12/12/23 12/12/23 12/12/23 06:59 14:59 22:59 Intake Total 480 / 480 Output Total 350 / 770 275 / 275 Balance -350 / -530 205 / 205 Weight last 48 hrs Weight 125.645 kg Physical Exam 2 Const: COMMON NORMALS: no acute distress and patient oriented x3 Resp: COMMON NORMALS: normal respiratory effort, No retractions, No use of accessory muscles and clear to auscultation bilaterally AUSCULTATION: clear to auscultation bilaterally Cardio: COMMON NORMALS: regular rate, regular rhythm, S1 normal heart sound present and S2 normal heart sound present RATE: regular rate RHYTHM: r egular rhythm HEART SOUNDS: S1 normal heart sound present and S2 normal heart sound present GI: COMMON NORMALS: Normal to inspection, nondistended, normoactive bowel sounds present and non-tender Extremity: COMMON NORMALS: no pedal edema Neuro: COMMON NORMALS: patient oriented x3 Psych: COMMON NORMALS: mental status grossly normal Data 12/12/23 04:44 12/12/23 04:44 A&P Assessment and plan (1) Acute CVA (cerebrovascular accident): (2) A-fib: Qualifiers: Atrial fibrillation type: unspecified Qualified Code(s): I48.91 - Unspecified atrial fibrillation (3) Hyperlipidemia: (4) Hypertension: Qualifiers: Hypertension type: primary hypertension Qualified Code(s): I10 - Essential (primary) hypertension (5) Diabetes mellitus: Qualifiers: Diabetes mellitus complication detail: with polyneuropathy Diabetes mellitus complication status: with neurologic complications 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 Head CT ? CT/CT head thrombolytic [id number] IMPRESSION: 1. No evidence of intracranial hemorrhage or mass effect. 2. Moderate small vessel changes with moderate parenchymal volume loss. 3. Intracranial vascular calcification. 4. Chronic wedge-shaped infarct LEFT cerebellum. 5. No acute intracranial findings. -CT head and neck ? CT/CT angio headneck* [id number] IMPRESSION: 1. No significant cervical ICA stenosis. 2. No evidence of proximal flow-limiting intracranial stenosis. -Repeat head CT 12/09/2023 no acute findings echo CONCLUSIONS Normal left ventricular size and systolic function, EF 55%, visual.moderate left ventricular hypertrophy. Some thickening of the right ventricular free wall. Normal RV ejection fraction. 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 Trace aortic valve regurgitation. Trace to mild pulmonic regurgitation-at least 2 jets. There is no pericardial effusion. There are no intracardiac masses. The above features may suggest some form of hypertrophic cardiomyopathy, consider amyloid heart disease. Plan -Moved to medical floors -Has completed tPA precautions -Slowly resume patient's blood pressure medications -Telemetry monitoring - resume Xarelto in 7 days -DVT prophylaxis Lovenox -Aspirin - statin -Low-dose sliding scale -Nurse bedside dysphagia eval, cardiac diet -Patient had a fall, on examination right knee no significant swelling, no pain, no erythema no pain with range of motion, no reported pain, CT of the right knee CT/CT knee RT wo con* [id number] IMPRESSION: 1. Severe osteoarthritis without evidence of fracture or subluxation. 2. Suspected complex meniscal tears. ? Neurochecks -Now has complaints of left knee pain ? Aspiration precautions -PT OT -Full code -SCDs for DVT prophylaxis Plan for today continue PT OT, monitor blood pressure aspirin, statin, CT of left knee Attestations 2 Medical Necessity Statement*: Patient requires hospitalization for acute CVA, left lower extremity weakness, now complains of left knee pain Diagnoses Acute CVA (cerebrovascular accident) I63.9 Atrial fibrillation, unspecified type I48.91 Atrial fibrillation type: unspecified Hyperlipidemia E78.5 Primary hypertension I10 Hypertension type: primary hypertension Type 2 diabetes mellitus with diabetic polyneuropathy, without long-term current use of insulin E11.42 Diabetes mellitus complication detail: with polyneuropathy Diabetes mellitus complication status: with neurologic complications Diabetes mellitus magazine grinder loader insulin use: without long-term use Diabetes mellitus type: type 2
[2023-12-12 16:40] LABS: Glucose Point of Care 181 mg/dL (70-110)
[2023-12-12] MEDS: pantoprazole 40 mg SDV IVP (17:32)
[2023-12-12] MEDS: enoxaparin 40 mg/0.4 mL Syringe SUBCUT (20:20)
[2023-12-12 20:36] LABS: Glucose Point of Care 157 mg/dL (70-110)
[2023-12-13] VITALS (14 sets, daily range): BP systolic 131–176; BP diastolic 81–88; PULSE 56–86; RESP 14–18; TEMP 36.4–36.7; O2SAT 92–99
[2023-12-13 05:59] LABS: Basophils # 0.1 10^3/uL (0.0-0.1); Basophils % 0.7 %; Eosinophils # 0.2 10^3/uL (0.0-0.8); Eosinophils % 2.4 %; Hematocrit 41.9 % (37-53); Lymphocytes # 1.2 10^3/uL (0.8-4.8); Lymphocytes % 12.6 %; Mean Corpuscular HGB Conc 35.1 g/dL (30-55); Mean Corpuscular Hemoglobin 29.4 pg (27-33); Mean Corpuscular Volume 83.8 fl (82-101); Mean Platelet Volume 10.8 fL (7.4-10.4); Monocytes # 0.9 10^3/uL (0.2-0.9); Neutrophils # 6.92 10^3/uL (1.8-7.7); Nucleated Red Blood Cells % 0 %; Platelet Count 229 10^3/cmm (157-399); Red Cell Distribution Width 13.1 % (12.1-15.1); White Blood Count 9.36 10^3/uL (3.29-11.43)
[2023-12-13 06:22] LABS: Alanine Aminotransferase 16 U/L (0-41); Albumin Level 3.4 g/dL (3.5-5.2); Alkaline Phosphatase 93 U/L (40-130); Anion Gap 13.5 (5-19); Aspartate Amino Transferase 17 U/L (0-40); Blood Urea Nitrogen 14 mg/dL (6-20); Calcium 8.2 mg/dL (8.5-10.5); Carbon Dioxide 25 mmol/L (22-29); Chloride 104 mmol/L (98-107); Creatinine Clr Calc Pharmacy 110.2424; Globulin 2.4 g/dL (1.3-4.6); Glomerular Filtration Rate 68.8 mL/min (90-130); Glucose 181 mg/dL (65-115); Osmolality Calculated 293 mOsm/kg (285-295); Potassium 3.5 mmol/L (3.5-5.1); Sodium 139 mmol/L (136-145); Total Bilirubin 1.1 mg/dL (0.15-1.2); Total Protein 5.8 g/dL (6.6-8.7)
[2023-12-13 06:26] LABS: Glucose Point of Care 219 mg/dL (70-110)
[2023-12-13] MEDS: insulin lispro 100 unit/1 mL SUBCUT ×2 (08:41→17:08)
[2023-12-13] MEDS: amlodipine 10 mg Tablet PO (08:42)
[2023-12-13] MEDS: carvedilol 25 mg Tablet PO ×2 (08:42→17:08)
[2023-12-13] MEDS: aspirin 81 mg EC Tablet PO (08:42)
[2023-12-13] MEDS: losartan 50 mg Tablet 25 MG PO (08:42)
[2023-12-13] MEDS: atorvastatin 40 mg Tablet PO (08:42)
[2023-12-13] MEDS: pregabalin 75 mg Capsule PO ×3 (08:42→20:53)
[2023-12-13] MEDS: prednisoLONE 1% Op Susp 5 mL Btl 1 DROP EYE-LEFT ×3 (08:46→20:52)
[2023-12-13 11:36] LABS: Glucose Point of Care 140 mg/dL (70-110)
[2023-12-13] MEDS: hyDRALAzine 25 mg Tablet PO ×2 (13:20→23:55)
--- NOTE | 2023-12-13 16:07 | PM.PN ---
Subjective Subjective: Patient was seen this morning, he has no complaints, no nausea, no vomiting, no fevers, no chills, his left knee pain is improving Vitals/I&O/Wt Last Vital Signs Temp 98.0 F 12/13/23 12:00 Pulse 61 12/13/23 15:00 Resp 15 12/13/23 12:00 BP 136/83 12/13/23 12:00 Pulse Ox 92 12/13/23 12:00 O2 Del Method Room Air 12/13/23 12:00 12/13/23 12/13/23 12/13/23 06:59 14:59 22:59 Intake Total 480 / 480 Output Total 800 / 1675 Balance -800 / -955 480 / 480 Weight last 48 hrs Weight 125.645 kg Physical Exam Const: COMMON NORMALS: no acute distress and patient oriented x3 Resp: COMMON NORMALS: normal respiratory effort, No retractions, No use of accessory muscles and clear to auscultation bilaterally AUSCULTATION: clear to auscultation bilaterally Cardio: COMMON NORMALS: regular rate, regular rhythm, S1 normal heart sound present and S2 normal heart sound present RATE: regular rate RHYTHM: regular rhythm HEART SOUNDS: S1 normal heart sound present and S2 normal heart sound present GI: COMMON NORMALS: Normal to inspection, nondistended, normoactive bowel sounds present and non-tender Extremity: COMMON NORMALS: no pedal edema Neuro: COMMON NORMALS: patient oriented x3 and CN's II-XII intact bilaterally OTHER: Left lower extremity strength, improving, on examination left knee, no significant erythema, no significant swelling, no significant tenderness, Psych: COMMON NORMALS: mental status grossly normal Data 12/13/23 05:15 12/13/23 05:15 A&P Assessment and plan (1) Acute CVA (cerebrovascular accident): (2) A-fib: Qualifiers: Atrial fibrillation type: unspecified Qualified Code(s): I48.91 - Unspecified atrial fibrillation (3) Hyperlipidemia: (4) Hypertension: Qualifiers: Hypertension type: primary hypertension Qualified Code(s): I10 - Essential (primary) hypertension (5) Diabetes mellitus: Qualifiers: Diabetes mellitus type: type 2 Diabetes mellitus assisted insulin use: without terminal operator use Diabetes mellitus complication status: with neurologic complications Diabetes mellitus complication detail: with polyneuropathy Qualified Code(s): E11.42 - Type 2 diabetes mellitus with diabetic polyneuropathy Plan Acute CVA -Left lower extremity weakness -NIH stroke scale on admission was 4 -Patient has been off Xarelto for over a year with history of atrial fibrillation, due to affordability issues -Status post TNKase -Evaluated by neurology in the emergency room ? Head CT ? CT/CT head thrombolytic [id number] IMPRESSION: 1. No evidence of intracranial hemorrhage or mass effect. 2. Moderate small vessel changes with moderate parenchymal volume loss. 3. Intracranial vascular calcification. 4. Chronic wedge-shaped infarct LEFT cerebellum. 5. No acute intracranial findings. -CT head and neck ? CT/CT angio headneck* [id number] IMPRESSION: 1. No significant cervical ICA stenosis. 2. No evidence of proximal flow-limiting intracranial stenosis. -Repeat head CT 12/09/2023 no acute findings echo CONCLUSIONS Normal left ventricular size and systolic function, EF 55%, visual.moderate left ventricular hypertrophy. Some thickening of the right ventricular free wall. Normal RV ejection fraction. 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 Trace aortic valve regurgitation. Trace to mild pulmonic regurgitation-at least 2 jets. There is no pericardial effusion. There are no intracardiac masses. The above features may suggest some form of hypertrophic cardiomyopathy, consider amyloid heart disease. Plan -Moved to medical floors -Has completed tPA precautions -Slowly resume patient's blood pressure medications -Telemetry monitoring - resume Xarelto in 7 days -DVT prophylaxis Lovenox -Aspirin - statin -Low-dose sliding scale -Nurse bedside dysphagia eval, cardiac diet -Patient had a fall, on examination right knee no significant swelling, no pain, no erythema no pain with range of motion, no reported pain, CT of the right knee CT/CT knee RT wo con* [id number] IMPRESSION: 1. Severe osteoarthritis without evidence of fracture or subluxation. 2. Suspected complex meniscal tears. ? Neurochecks -Now has complaints of left knee pain CT/CT knee LT wo con* [id number] IMPRESSION: 1. Mild-moderate osteoarthritis without evidence of fracture or subluxation. If there is clinical suspicion for meniscal or ligamentous injury, consider correlation with follow-up outpatient MRI. 2. 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 ? Aspiration precautions -PT OT -Full code -SCDs for DVT prophylaxis Plan for today continue PT OT, monitor blood pressure aspirin, statin, Attestations Medical Necessity Statement*: Patient requires hospitalization for CVA left lower extremity weakness Diagnoses Acute CVA (cerebrovascular accident) I63.9 Atrial fibrillation, unspecified type I48.91 Atrial fibrillation type: unspecified Hyperlipidemia E78.5 Primary hypertension I10 Hypertension type: primary hypertension Type 2 diabetes mellitus with diabetic polyneuropathy, without long-term current use of insulin E11.42 Diabetes mellitus type: type 2 Diabetes mellitus terminal operator insulin use: without terminal operator use Diabetes mellitus complication status: with neurologic complications Diabetes mellitus complication detail: with polyneuropathy
[2023-12-13 16:44] LABS: Glucose Point of Care 188 mg/dL (70-110)
[2023-12-13] MEDS: pantoprazole 40 mg SDV IVP (17:08)
[2023-12-13] MEDS: oxyCODONE 5 mg IR Tab/Cap PO (18:32)
[2023-12-13 20:30] LABS: Glucose Point of Care 170 mg/dL (70-110)
[2023-12-13] MEDS: enoxaparin 40 mg/0.4 mL Syringe SUBCUT (20:52)
[2023-12-14] VITALS (8 sets, daily range): BP systolic 135–158; BP diastolic 73–88; PULSE 60–78; RESP 16–19; TEMP 36.6–36.7; O2SAT 93–96
[2023-12-14 06:50] LABS: Glucose Point of Care 192 mg/dL (70-110)
[2023-12-14] MEDS: carvedilol 25 mg Tablet PO (09:22)
[2023-12-14] MEDS: losartan 50 mg Tablet 25 MG PO (09:22)
[2023-12-14] MEDS: aspirin 81 mg EC Tablet PO (09:22)
[2023-12-14] MEDS: atorvastatin 40 mg Tablet PO (09:22)
[2023-12-14] MEDS: pregabalin 75 mg Capsule PO (09:22)
[2023-12-14] MEDS: amlodipine 10 mg Tablet PO (09:22)
[2023-12-14] MEDS: prednisoLONE 1% Op Susp 5 mL Btl 1 DROP EYE-LEFT (09:23)
[2023-12-14] MEDS: insulin lispro 100 unit/1 mL SUBCUT (09:23)
--- NOTE | 2023-12-14 11:07 | PC.SOCIAL ---
IMM Updated Updated pt on IMM. No questions voiced. Provided pt a copy. Initialed, dated, & timed a copy & placed in chart
--- NOTE | 2023-12-14 11:16 | P.DS_ITS ---
Discharge Providers Date of Admission: 12/08/23 17:20 Date of Discharge: December 14, 2023 Attending Provider at Admission: Malachi Prince MD Attending Provider at Discharge: Malachi Prince MD Diagnoses at Discharge Discharge Diagnosis (1) Acute CVA (cerebrovascular accident): Status: Acute (2) A-fib: Status: Acute Qualifiers: Atrial fibrillation type: unspecified Qualified Code(s): I48.91 - Unspecified atrial fibrillation (3) Hyperlipidemia: Status: Acute (4) Hypertension: Status: Acute Qualifiers: Hypertension type: primary hypertension Qualified Code(s): I10 - Essential (primary) hypertension (5) Diabetes mellitus: Status: Acute Qualifiers: Diabetes mellitus complication detail: with polyneuropathy Diabetes mellitus complication status: with neurologic complications Diabetes mellitus emt intermediate insulin use: without care home use Diabetes mellitus type: type 2 Qualified Code(s): E11.42 - Type 2 diabetes mellitus with diabetic polyneuropathy Reason for Visit Reason for Visit: LT Side Loss of feeling below the knee Hospital Course Hospital Course Devang Kraus is a 58 year old male with a past medical history of type 2 diabetes mellitus, atrial fibrillation currently off Xarelto due to affordability issues, neuropathy, chronic back pain status post 2 back surgeries, who presents [facility] due to acute onset left lower extremity weakness. Patient tells me that today at roughly noon time, he had gotten up to put a bowl in the sink, when he did not feel well, felt unsteady on his feet, so he went down to sit in his chair, he tells me that he was starting to lean towards the left side, feeling that he would fall out of his chair, so he tried to get up out of the chair when he noticed that he had no strength in his left leg, he had to use his hands to move his left leg, all he does not report any sensory loss, but was unable to get up out of the chair due to acute onset left leg weakness, no left upper extremity weakness, no facial droop no slurring of words, he has a chronic left lid lag, no nausea, no vomiting, no worsening of his back pain no urinary continence, no bowel incontinence no saddle perineal anesthesia, no recent falls, no recent injuries, no prior history of strokes, when EMS arrived they checked his blood sugars, his blood sugars were within normal limits, he does report that he was on Xarelto for his a history of atrial fibrillation but after moving from [place], he was not able to afford it so he has not been using Xarelto in over a year, denies being on any other blood thinners Patient was admitted to [facility] for acute CVA, status post TNKase, with residual left lower extremity weakness, highly suspicious for embolic stroke related to his history of atrial fibrillation Acute CVA -Left lower extremity weakness -NIH stroke scale on admission was 4 -Patient has been off Xarelto for over a year with history of atrial fibrillation, due to affordability issues -Status post TNKase -Evaluated by neurology in the emergency room ? Head CT ? CT/CT head thrombolytic [id number] IMPRESSION: 1. No evidence of intracranial hemorrhage or mass effect. 2. Moderate small vessel changes with moderate parenchymal volume loss. 3. Intracranial vascular calcification. 4. Chronic wedge-shaped infarct LEFT cerebellum. 5. No acute intracranial findings. -CT head and neck ? CT/CT angio headneck* [id number] IMPRESSION: 1. No significant cervical ICA stenosis. 2. No evidence of proximal flow-limiting intracranial stenosis. -Repeat head CT 12/09/2023 no acute findings echo CONCLUSIONS Normal left ventricular size and systolic function, EF 55%, visual.moderate left ventricular hypertrophy. Some thickening of the right ventricular free wall. Normal RV ejection fraction. 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 Trace aortic valve regurgitation. Trace to mild pulmonic regurgitation-at least 2 jets. There is no pericardial effusion. There are no intracardiac masses. The above features may suggest some form of hypertrophic cardiomyopathy, consider amyloid heart disease. -Monitor in the ICU -Moved to medical floors -Has completed tPA precautions -Slowly resumed patient's blood pressure medications -Will be discharged on aspirin, statin -Monitor for headache, blurry vision, if any recurrent stroke like symptoms please immediately call [phone] -Resume anticoagulant therapy 7 days after acute stroke -Patient and family would personally prefer Pradaxa, as they can afford it, will have patient start Pradaxa 150 mg twice daily starting on 12/17/2023 -Due to persistent left lower extremity weakness, discharged to inpatient rehab For his atrial fibrillation, please follow-up with cardiology Echocardiogram findings as above, possible evidence of hypertrophic cardiomyopathy, follow-up with cardiology outpatient Patient has complaints of left knee pain CT/CT knee LT wo con* [id number] IMPRESSION: 1. Mild-moderate osteoarthritis without evidence of fracture or subluxation. If there is clinical suspicion for meniscal or ligamentous injury, consider correlation with follow-up outpatient MRI. 2. 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 -On discharge left knee pain is minimal he is able to ambulate more without significant symptomatology -Discharged with oxycodone to be used sparingly for pain, do not drive or operate machinery or drink while taking medication -Discharged with PT OT instructions -Follow-up with orthopedic service as outpatient Physical Exam Const: COMMON NORMALS: no acute distress and patient oriented x3 OTHER: Left eye, chronic droop of left eyelid Resp: COMMON NORMALS: normal respiratory effort, No retractions, No use of accessory muscles and clear to auscultation bilaterally AUSCULTATION: clear to auscultation bilaterally Cardio: COMMON NORMALS: regular rate, regular rhythm, S1 normal heart sound present and S2 normal heart sound present RATE: regular rate RHYTHM: regular rhythm HEART SOUNDS: S1 normal heart sound present and S2 normal heart sound present GI: COMMON NORMALS: Normal to inspection, nondistended, normoactive bowel sounds present and non-tender Extremity: COMMON NORMALS: no pedal edema NARRATIVE EXTREMITY EXAM: Left lower extremity weakness Neuro: COMMON NORMALS: patient oriented x3 Psych: COMMON NORMALS: mental status grossly normal Discharge Data Studies Completed and Pending Completed Studies During Hospitalization Category Date Time Status CT head thrombolytic [id number] Stat Cat Scan 12/08/23 14:[address] head wo con* [id number] Routine Cat Scan 12/09/23 15:[address] knee LT wo con* [id number] Routine Cat Scan 12/12/23 10:[address] knee RT wo con* [id number] Routine Cat Scan 12/09/23 12:35 Completed CTA head neck [CT angio headneck* [id number]] Stat Cat Scan 12/08/23 14:16 Completed XR knee LT 1-2V [id number] Routine Exams 12/09/23 16:50 Completed XR knee RT 3V* [id number] Routine Exams 12/08/23 23:30 Completed CV. echo complete* [id number] Routine Ultrasound 12/08/23 17:48 Completed US gall bladder [id number] Routine Ultrasound 12/11/23 08:32 Completed Radiology Impressions Head/Neck CTA 12/08/23 14:16 IMPRESSION: 1. No significant cervical ICA stenosis. 2. No evidence of proximal flow-limiting intracranial stenosis. Head CT 12/09/23 15:30 IMPRESSION: No acute intracranial findings. Knee X-Ray 12/09/23 16:50 IMPRESSION: 1. Small joint effusion without evidence of acute fracture or subluxation. CT may be helpful for further detail if clinically warranted. Gallbladder Ultrasound 12/11/23 08:32 IMPRESSION: Mild hepatomegaly. Knee CT 12/12/23 10:57 IMPRESSION: 1. Mild-moderate osteoarthritis without evidence of fracture or subluxation. If there is clinical suspicion for meniscal or ligamentous injury, consider correlation with follow-up outpatient MRI. 2. 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 Laboratory Results WBC 9.36 10^3/uL (3.29-11.43) 12/13/23 05:15 RBC 5.00 10^6/uL (3.85-5.65) 12/13/23 05:15 Hgb 14.70 g/dL (11.27-16.99) 12/13/23 05:15 Hct 41.9 % (37-53) 12/13/23 05:15 MCV 83.8 fl (82-101) 12/13/23 05:15 MCH 29.4 pg (27-33) 12/13/23 05:15 MCHC 35.1 g/dL (30-55) 12/13/23 05:15 RDW 13.1 % (12.1-15.1) 12/13/23 05:15 Plt Count 229 10^3/cmm (157-399) 12/13/23 05:15 MPV 10.8 fL (7.4-10.4) H 12/13/23 05:15 Neut % (Auto) 74.0 % 12/13/23 05:15 Lymph % (Auto) 12.6 % 12/13/23 05:15 [place] % (Auto) 10.0 % 12/13/23 05:15 Eos % (Auto) 2.4 % 12/13/23 05:15 Baso % (Auto) 0.7 % 12/13/23 05:15 Neut # (Auto) 6.92 10^3/uL (1.8-7.7) 12/13/23 05:15 Lymph # (Auto) 1.2 10^3/uL (0.8-4.8) 12/13/23 05:15 [place] # (Auto) 0.9 10^3/uL (0.2-0.9) 12/13/23 05:15 Eos # (Auto) 0.2 10^3/uL (0.0-0.8) 12/13/23 05:15 Baso # (Auto) 0.1 10^3/uL (0.0-0.1) 12/13/23 05:15 Nucleated RBC % (auto) 0 % 12/13/23 05:15 Nucleated RBCs # 0.0 /100WBC 12/13/23 05:15 PT 14.20 SECONDS (12.1-14.9) 12/08/23 14:15 INR 1.07 (0.8-1.2) 12/08/23 14:15 APTT 29.4 SECONDS (23.9-36.7) 12/08/23 14:15 Fibrinogen 302 mg/dL (174-498) 12/09/23 16:16 Sodium 139 mmol/L (136-145) 12/13/23 05:15 Potassium 3.5 mmol/L (3.5-5.1) 12/13/23 05:15 Chloride 104 mmol/L (98-107) 12/13/23 05:15 Carbon Dioxide 25 mmol/L (22-29) 12/13/23 05:15 Anion Gap 13.5 (5-19) 12/13/23 05:15 BUN 14 mg/dL (6-20) 12/13/23 05:15 Creatinine 1.1 mg/dL (0.7-1.2) 12/13/23 05:15 GFR Calculation 68.8 mL/min (90-130) L 12/13/23 05:15 Glucose 181 mg/dL (65-115) H 12/13/23 05:15 POC Glucose 192 mg/dL (70-110) H 12/14/23 06:46 Calculated Osmolality 293 mOsm/kg (285-295) 12/13/23 05:15 Calcium 8.2 mg/dL (8.5-10.5) L 12/13/23 05:15 Phosphorus 3.3 mg/dL (2.5-4.5) 12/11/23 04:34 Magnesium 1.8 mg/dL (1.7-2.3) 12/11/23 04:34 Total Bilirubin 1.1 mg/dL (0.15-1.2) 12/13/23 05:15 Direct Bilirubin 0.50 mg/dL (0.00-0.30) H 12/11/23 04:34 Indirect Bilirubin 1.50 12/11/23 04:34 GGT 12 U/L (8-61) 12/11/23 04:34 AST 17 U/L (0-40) 12/13/23 05:15 ALT 16 U/L (0-41) 12/13/23 05:15 Alkaline Phosphatase 93 U/L (40-130) 12/13/23 05:15 Total Protein 5.8 g/dL (6.6-8.7) L 12/13/23 05:15 Albumin 3.4 g/dL (3.5-5.2) L 12/13/23 05:15 Globulin 2.4 g/dL (1.3-4.6) 12/13/23 05:15 Triglycerides 146 mg/dL (0-150) 12/08/23 14:15 Cholesterol 101 mg/dL (0-200) 12/08/23 14:15 LDL Cholesterol, Calc 45 mg/dL (50-129) L 12/08/23 14:15 HDL Cholesterol 27 mg/dL (60-100) L 12/08/23 14:15 LDL/HDL Ratio 1.67 RATIO (0.00-3.22) 12/08/23 14:15 Cholesterol/HDL Ratio 3.74 mg/dL (1.0-5.00) 12/08/23 14:15 Lipase 16 U/L (13-60) 12/11/23 04:34 TSH 1.43 uIU/mL (0.27-4.20) 12/08/23 14:15 Urine Color Yellow (Yellow) 12/08/23 15:41 Urine Appearance Clear (CLEAR) 12/08/23 15:41 Urine pH 7.5 (5-7) 12/08/23 15:41 Ur Specific [place] 1.033 (1.005-1.030) H 12/08/23 15:41 Urine Protein Trace (Negative) A 12/08/23 15:41 Urine Glucose (UA) 1+ (Normal) H 12/08/23 15:41 Urine Ketones Negative (Negative) 12/08/23 15:41 Urine Blood Negative (Negative) 12/08/23 15:41 Urine Nitrate Negative (Negative) 12/08/23 15:41 Urine Bilirubin Negative (Negative) 12/08/23 15:41 Urine Urobilinogen 1.0 mg/dL (Negative) 12/08/23 15:41 Ur Leukocyte Esterase Negative (Negative) 12/08/23 15:41 Urine RBC 0-2 /hpf (0-2) 12/08/23 15:41 Urine WBC 0-5 /hpf (0-5) 12/08/23 15:41 Ur Squamous Epith Cells 0-5 /hpf (0-5) 12/08/23 15:41 Amorphous Sediment Not Reportable 12/08/23 15:41 Urine Bacteria None seen /hpf (NONE) 12/08/23 15:41 Hyaline Casts 0.81 /lpf 12/08/23 15:41 Urine Opiates Screen Negative ng/mL (Negative) 12/08/23 15:41 Ur Barbiturates Screen Negative ng/mL (Negative) 12/08/23 15:41 Ur Phencyclidine Scrn Negative ng/mL (Negative) 12/08/23 15:41 Ur Amphetamines Screen Negative ng/mL (Negative) 12/08/23 15:41 U Benzodiazepines Scrn Negative ng/mL (Negative) 12/08/23 15:41 Urine Cocaine Screen Negative ng/mL (Negative) 12/08/23 15:41 U Marijuana (THC) Screen Negative ng/mL (Negative) 12/08/23 15:41 Vitals Last Vital Signs Temp 97.9 F 12/14/23 08:00 Pulse 71 12/14/23 08:00 Resp 19 H 12/14/23 08:00 BP 158/84 12/14/23 09:22 Pulse Ox 96 12/14/23 08:00 O2 Del Method Room Air 12/14/23 08:00 Discharge Plan Discharge Patient Disposition: Xfer Inpatient Rehab Fac Condition: Stable Prescriptions: New oxycodone 5 mg tablet 5 mg PO BID PRN (Reason: pain) 5 Days Qty: 10 0RF aspirin 81 mg Tablet,Delayed Release (Dr/Ec) 81 mg PO DAILY 30 Days Qty: 30 0RF insulin lispro [Humalog U-100 Insulin] 100 unit/mL Solution See Rx Instructions .ROUTE .COMPLEX Qty: 10 0RF Rx Instructions: Inject, subcut, 3 times daily, after meals, based on sliding scale provided losartan 50 mg Tablet 25 mg PO DAILY 30 Days Qty: 30 0RF dabigatran etexilate [Pradaxa] 150 mg capsule 150 mg PO BID 30 Days Qty: 60 0RF Rx Instructions: patient had a cva, start 7 days after stroke, start 12/17/2023 Continued amlodipine 10 mg tablet 10 mg PO DAILY Qty: 30 3RF carvedilol 25 mg tablet 25 mg PO BID Qty: 60 3RF Rx Instructions: must administer with a meal/food cyanocobalamin (vitamin B-12) 1,000 mcg/mL solution 1,000 mcg IM .every 2 weeks Qty: 3 0RF Rx Instructions: for 6 weeks. Trulicity 1.5 mg/0.5 mL pen injector 1.5 mg SUBCUT .weekly Qty: 2 3RF furosemide 40 mg tablet 40 mg PO DAILY Qty: 30 3RF hydralazine 25 mg tablet 25 mg PO BID Qty: 60 3RF metformin 500 mg tablet extended release 24 hr 500 mg PO BID Qty: 60 3RF pregabalin [Lyrica] 75 mg capsule 75 mg PO TID Qty: 90 1RF potassium chloride 10 mEq capsule, extended release 10 meq PO DAILY Qty: 30 1RF prednisolone acetate 1 % Drops,Suspension 1 drp OPHTHALMIC (EYE) TID Changed atorvastatin 20 mg tablet 40 mg PO DAILY Qty: 30 3RF cyclobenzaprine 10 mg tablet 10 mg PO .qhs PRN (Reason: muscle spasms) Qty: 30 2RF Discontinued glipizide 10 mg tablet extended release 24hr 10 mg PO BID Qty: 60 3RF olmesartan 40 mg tablet 40 mg PO DAILY Qty: 30 3RF No Action (DME) diabetic shoes with inserts See Rx Instructions .Route .MEDSUPPLY Qty: 1 0RF Rx Instructions: As directed Discharge Orders: Discharge Order (Routine); Ordered 12/14/23 Ordered By: Malachi Prince Referrals: [facility] [Outside] Jade Santana MD [Physician] - 1 week (cva ) Yohannes Romeo MD [Physician] - 1 week (afib) Ayan Ontiveros DO [Physician] - 2 weeks (L knee) Discharge Diet: Cardiac Discharge Activity: Resume usual activity Patient Instructions: Opioid Safety Activity Restrictions/Additional Instructions: -For your acute CVA, likely embolic from history of atrial fibrillation not on anticoagulant therapy please continue to monitor closely -Follow-up with cardiology in 1 week -Follow-up with neurology in 1 week -Continue PT OT -Start dabigatran 150 mg twice daily 7 days from patient's stroke onset 12/17/2023 -Please monitor your blood sugars closely -Monitor your blood sugars 3 times daily as after meals -Please record your blood sugars, and a blood sugar log -For your NovoLog -Please inject blood sugar after meals based on sliding scale provided -Do not inject insulin if you do not eat as hypoglycemia kills -This is a NovoLog sliding scale -Insulin sliding ?fingerstick? Insulin ?141-180?0 units/sq 181-220?2 units/sq ?221-260?4 units/sq ?261-300 6 units/sq ?301-350?8 units/sq ?351-400 10 units/sq ?401-450?12 units/sq >450? 14units/sq -If your blood sugar is greater than 500 go to the emergency room -If your blood sugar is less than 60 or at anytime you feel lightheaded or dizzy or diaphoretic or have chest palpitations check your blood sugar, and eat a hard candy or drink orange juice and go immediately to the emergency room -Remember hypoglycemia kills, so if his blood sugar is less than 60 we have to increase it by taking in a sugary meal such as a hard candy or orange juice and go to the emergency room -If you have any questions please call us where here to help Discharge Attestations Time Spent in Discharge Care*: greater than 30 min Quality Metrics Clinical Quality Measures [ Cerebrovascular Accident { Contraindication to Antithrombotic: None; antithrombotic prescribed; Contraindication to Anticoagulation: None; anticoagulation prescribed; Contraindication to Statin: None; Statin prescribed;}. No reported AMI, CVA or VTE this stay] Coding Level of Care Code 54534 Total time (in minutes) for Discharge: 45 Diagnoses Acute CVA (cerebrovascular accident) I63.9 Atrial fibrillation, unspecified type I48.91 Atrial fibrillation type: unspecified Hyperlipidemia E78.5 Primary hypertension I10 Hypertension type: primary hypertension Type 2 diabetes mellitus with diabetic polyneuropathy, without long-term current use of insulin E11.42 Diabetes mellitus complication detail: with polyneuropathy Diabetes mellitus complication status: with neurologic complications Diabetes mellitus care home insulin use: without emt intermediate use Diabetes mellitus type: type 2
[2023-12-14 11:31] LABS: Glucose Point of Care 149 mg/dL (70-110)
--- NOTE | 2023-12-14 12:33 | PC.NURSE ---
Report called to [facility]. Hx and physical reported along with any wounds, skin issues, or concerns. All questions answered and addressed.
== END 2023-12-14 12:00 | DRG 62 ==
LOC: ER 16:28 → ICU 17:21 → MEDSURG 12-09 18:54
PROVIDERS: Admitting Provider Family Medicine; Emergency Provider Physician Assistant; Visit Provider Family Medicine
DX: I63.421 Cerebral infarction due to embolism of right anterior cerebral artery (principal); I42.2 Other hypertrophic cardiomyopathy; G83.14 Monoplegia of lower limb affecting left nondominant side; R29.704 NIHSS score 4; I48.91 Unspecified atrial fibrillation; E78.5 Hyperlipidemia, unspecified; I10 Essential (primary) hypertension; E11.42 Type 2 diabetes mellitus with diabetic polyneuropathy; M25.562 Pain in left knee; Z91.120 Patient's intentional underdosing of medication regimen due to financial hardship; Z79.85 Long-term (current) use of injectable non-insulin antidiabetic drugs; Z79.84 Long term (current) use of oral hypoglycemic drugs
CPT/HCPCS: 36415; 36416; 70450; 70496; 70498; 73560; 73562; 73700; 76705; 80053; 80061; 80306; 81001; 82247; 82248; 82962; 82977; 83690; 83735; 84100; 84443; 85025; 85384; 85610; 85730; 93005; 93306; 94664; 96372; 96374; 97110; 97116; 97163; 97165; 97530; 97535; 99291; 99292; J1650; J1815; J2270; J2470; J3101; J3420; J7030

== ENCOUNTER 2024-01-12 14:44 | Outpatient (RCR) | payer MEDICARE, SELFPAY | END 2024-01-16 23:59 | disposition home or self-care (01) | LOC: SPO 14:44 | PROVIDERS: Visit Provider Internal Medicine | DX: G45.8 Other transient cerebral ischemic attacks and related syndromes (principal); R53.1 Weakness; R26.89 Other abnormalities of gait and mobility | CPT/HCPCS: 97162 ==

== ENCOUNTER 2024-01-17 06:30 | Outpatient (RCR) | payer MEDICARE, SELFPAY | END 2024-02-16 23:59 | disposition home or self-care (01) | LOC: SPO 06:30 | PROVIDERS: PCP Nurse Practitioner Family; Visit Provider Internal Medicine | DX: G45.8 Other transient cerebral ischemic attacks and related syndromes (principal); R53.1 Weakness; R26.89 Other abnormalities of gait and mobility | CPT/HCPCS: 97110; 97112; 97167; 97530 ==

== ENCOUNTER → 2024-02-12 10:28 | Outpatient (BNVA) | payer MEDICARE, SELFPAY | PROVIDERS: PCP Nurse Practitioner Family; Visit Provider Nurse Practitioner Family | DX: E11.42 Type 2 diabetes mellitus with diabetic polyneuropathy (principal); I10 Essential (primary) hypertension | CPT/HCPCS: 80053; 80061; 82607; 83036; 84443; 85025 ==

== ENCOUNTER 2024-02-17 06:00 | Outpatient (RCR) | payer MEDICARE, SELFPAY | END 2024-03-18 23:59 | disposition home or self-care (01) | LOC: SPO 06:00 | PROVIDERS: PCP Nurse Practitioner Family; Visit Provider Internal Medicine | DX: G45.8 Other transient cerebral ischemic attacks and related syndromes (principal); R53.1 Weakness; R26.89 Other abnormalities of gait and mobility | CPT/HCPCS: 97110; 97112; 97530 ==

== ENCOUNTER 2024-03-19 06:30 | Outpatient (RCR) | payer MEDICARE, SELFPAY | END 2024-04-15 23:59 | disposition home or self-care (01) | LOC: SPO 06:30 | PROVIDERS: PCP Nurse Practitioner Family; Visit Provider Internal Medicine | DX: G45.8 Other transient cerebral ischemic attacks and related syndromes (principal); R53.1 Weakness; R26.89 Other abnormalities of gait and mobility | CPT/HCPCS: 97110; 97530 ==

== ENCOUNTER → 2024-05-25 10:30 | Outpatient (BNVA) | payer MEDICARE, SELFPAY | PROVIDERS: PCP Nurse Practitioner Family; Visit Provider Nurse Practitioner Family | DX: I10 Essential (primary) hypertension (principal); E11.8 Type 2 diabetes mellitus with unspecified complications | CPT/HCPCS: 80053; 80061; 82607; 83036; 84443; 85025 ==

== ENCOUNTER → 2024-05-30 09:13 | Outpatient (BNVA) | payer MEDICARE, SELFPAY | PROVIDERS: PCP Nurse Practitioner Family; Visit Provider Podiatrist Foot & Ankle Surgery | DX: E11.621 Type 2 diabetes mellitus with foot ulcer (principal); L97.523 Non-pressure chronic ulcer of other part of left foot with necrosis of muscle; E11.42 Type 2 diabetes mellitus with diabetic polyneuropathy; Z86.73 Personal history of transient ischemic attack (TIA), and cerebral infarction without residual deficits; Q66.71 Congenital pes cavus, right foot; Q66.72 Congenital pes cavus, left foot; Z79.84 Long term (current) use of oral hypoglycemic drugs | CPT/HCPCS: 11043; 99204 ==

== ENCOUNTER → 2024-06-06 13:09 | Outpatient (BNVA) | payer MEDICARE, SELFPAY | PROVIDERS: PCP Nurse Practitioner Family; Visit Provider Thoracic Surgery (Cardiothoracic Vascular Surgery) | DX: E11.52 Type 2 diabetes mellitus with diabetic peripheral angiopathy with gangrene (principal); E11.621 Type 2 diabetes mellitus with foot ulcer; L97.525 Non-pressure chronic ulcer of other part of left foot with muscle involvement without evidence of necrosis | CPT/HCPCS: 11042; 99203; A6021; A6212; A6248 ==

== ENCOUNTER → 2024-06-07 12:17 | Outpatient (BNVA) | payer MEDICARE, SELFPAY | PROVIDERS: PCP Nurse Practitioner Family; Referring Provider Nurse Practitioner Family; Visit Provider Specialist | DX: I63.9 Cerebral infarction, unspecified (principal); I63.521 Cerebral infarction due to unspecified occlusion or stenosis of right anterior cerebral artery; I48.91 Unspecified atrial fibrillation; I10 Essential (primary) hypertension; E11.42 Type 2 diabetes mellitus with diabetic polyneuropathy; M21.372 Foot drop, left foot | CPT/HCPCS: 99205 ==

== ENCOUNTER → 2024-07-06 12:02 | Outpatient (BNVA) | payer MEDICARE, SELFPAY | PROVIDERS: PCP Nurse Practitioner Family; Visit Provider Nurse Practitioner Family | DX: I63.9 Cerebral infarction, unspecified (principal) | CPT/HCPCS: 85610 ==

== ENCOUNTER → 2024-07-13 14:16 | Outpatient (BNVA) | payer MEDICARE, SELFPAY | PROVIDERS: PCP Nurse Practitioner Family; Visit Provider Nurse Practitioner Family | DX: I63.9 Cerebral infarction, unspecified (principal) | CPT/HCPCS: 85610 ==

== ENCOUNTER → 2024-07-20 14:01 | Outpatient (BNVA) | payer MEDICARE, SELFPAY | PROVIDERS: PCP Nurse Practitioner Family; Visit Provider Nurse Practitioner Family | DX: I63.9 Cerebral infarction, unspecified (principal) | CPT/HCPCS: 85610 ==

== ENCOUNTER → 2024-09-26 11:08 | Outpatient (BNVA) | payer MEDICARE, SELFPAY | PROVIDERS: PCP Nurse Practitioner Family; Visit Provider Nurse Practitioner Family | DX: Z12.5 Encounter for screening for malignant neoplasm of prostate (principal); I10 Essential (primary) hypertension; E11.42 Type 2 diabetes mellitus with diabetic polyneuropathy; E78.5 Hyperlipidemia, unspecified; I63.9 Cerebral infarction, unspecified; Z79.01 Long term (current) use of anticoagulants | CPT/HCPCS: 80053; 80061; 85025; 85610; G0103 ==

== ENCOUNTER → 2024-09-28 | Outpatient (BNVA) | payer MEDICARE, SELFPAY | PROVIDERS: PCP Nurse Practitioner Family; Visit Provider Nurse Practitioner Family | DX: E11.8 Type 2 diabetes mellitus with unspecified complications (principal) | CPT/HCPCS: 83036 ==

== ENCOUNTER 2024-10-06 23:02 | Inpatient (IN) | payer MEDICARE, SELFPAY ==
--- OUTSIDE RECORDS SUMMARY | 2024-09-03 04:00 | XMS_ITS ---
Author Organization [facility], [place] Address [address] [place] [id number] Care Team Providers Care Manager Asset Management Name Role Phone Migration, Provider Unavailable Unavailable REASON FOR VISIT EMR-Vijay Encounters Encounter Location Date Provider Diagnosis [facility], [address] [address] 09/03/2024 Provider Migration Plan Of Treatment No Information Progress Notes * Devang KRAUSDOB: 6 (58 yo M)Acc No.[id number]:09/03/2024 Patient: Devang YOUNG :1965 A ge:58 Y S ex:Male Phone: Address:[address] [place] [address], [place], [address] Subjective: * Chief Complaints: * E MR-Vijay * * Date:
--- OUTSIDE RECORDS SUMMARY | 2024-09-04 04:00 | XMS_ITS ---
Author Organization [facility], [place] Address [address] [place] [phone] Care Team Providers Care [place] Fire Fighter Specialist Name Role Phone Migration, Provider Unavailable Unavailable REASON FOR VISIT EMR-Vijay Medications Medication SIG (Take, Route, Frequency, Duration) Notes Start Date End Date Status Furosemide 40 MG Tablet Take 1 tablet (4 0 mg) by mouth daily Oral Active glipiZIDE 10 MG Tablet Take 2 tablets (2 0 mg) by mouth one time Oral Active amLODIPine Besylate 10 MG Tablet Take 1 tablet (10 mg) by mouth daily Oral Active Olmesartan Medoxomil 40 MG Tablet Take 1 tablet (40 mg) by mouth daily Oral Active Gabapentin 300 MG Capsule Take 1 capsule (300 mg) by mouth 3 times per day Oral Active Tamsulosin HCl 0.4 MG Capsule Take 1 capsule (0.4 mg) by mouth daily Oral Active Dabigatran Etexilate Mesylate 150 MG Capsule Take 1 capsule (150 mg) by mouth 2 times per day Oral Active hydrALAZINE HCl 25 MG Tablet Take 1 tablet (25 mg) by mouth BID Oral Active Carvedilol 25 MG Tablet Take 1 tablet (2 5 mg) by mouth 2 times per day with food Oral Active Social History Social History Additional Details Category Social Info Options Details Migrated Social History Migrated Social History Alcohol use: Never\n , Light cigarette smoker (1-9 cigs/day) Effective Date:03/25/2021 12:00:00 AM Encounters Encounter Location Date Provider Diagnosis [facility], [address] [address] 09/04/2024 Provider Migration Plan Of Treatment No Information Progress Notes * Devang KRAUSDOB: 6 (58 yo M)Acc No.[id number]:09/04/2024 Patient: Devang YOUNG :1965 A ge:58 Y S ex:Male Phone: Address:[address] [place] [address], [place], [address] Subjective: * Chief Complaints: * E MR-Vijay * Medical History: Ongoing Medical Problems: Hypertensive urgency,Diabetes,Sleep apnea,Atrial fibrillation,Hypertension,Dyspnea, * Surgical History: Laminectomy, Lumbar w/discectomy * Family History: M igrated Family History: : Cancer(transitional cell ca and they nicked his bowel and he of sepsis) , Breast cancer( of blood clot to the heart) . * Social History: M igrated Social History: M igrated Social History: Alcohol use: Never\n , Light cigarette smoker (1-9 cigs/day) Effective Date:03/25/2021 12:00:00 AM. * Medications: T akingFurosemide 40 MG Tablet Take 1 tablet (40 mg) by mouth daily Oral glipiZIDE 10 MG Tablet Take 2 tablets (20 mg) by mouth one time Oral Olmesartan Medoxomil 40 MG Tablet Take 1 tablet (40 mg) by mouth daily Oral Dabigatran Etexilate Mesylate 150 MG Capsule Take 1 capsule (150 mg) by mouth 2 times per day Oral amLODIPine Besylate 10 MG Tablet Take 1 tablet (10 mg) by mouth daily Oral Gabapentin 300 MG Capsule Take 1 capsule (300 mg) by mouth 3 times per day Oral Tamsulosin HCl 0.4 MG Capsule Take 1 capsule (0.4 mg) by mouth daily Oral hydrALAZINE HCl 25 MG Tablet Take 1 tablet (25 mg) by mouth BID Oral Carvedilol 25 MG Tablet Take 1 tablet (25 mg) by mouth 2 times per day with food Oral Taking Furosemide 40 MG Tablet Take 1 tablet (40 mg) by mouth daily Oral Taking glipiZIDE 10 MG Tablet Take 2 tablets (20 mg) by mouth one time Oral Taking Olmesartan Medoxomil 40 MG Tablet Take 1 tablet (40 mg) by mouth daily Oral Taking Dabigatran Etexilate Mesylate 150 MG Capsule Take 1 capsule (150 mg) by mouth 2 times per day Oral Taking amLODIPine Besylate 10 MG Tablet Take 1 tablet (10 mg) by mouth daily Oral Taking Gabapentin 300 MG Capsule Take 1 capsule (300 mg) by mouth 3 times per day Oral Taking Tamsulosin HCl 0.4 MG Capsule Take 1 capsule (0.4 mg) by mouth daily Oral Taking hydrALAZINE HCl 25 MG Tablet Take 1 tablet (25 mg) by mouth BID Oral Taking Carvedilol 25 MG Tablet Take 1 tablet (25 mg) by mouth 2 times per day with food Oral * * Date:
--- NOTE | 2024-10-06 23:09 | CTR_ITS ---
PROCEDURE INFORMATION: Exam: CT Head Without Contrast Exam date and time: 10/06/2024 11:02 PM Age: 58 years old Clinical indication: Stroke-like symptoms; Speech disturbance; Right facial droop; Additional info: Stroke like symptoms TECHNIQUE: Imaging protocol: Computed tomography of the head without contrast. Radiation optimization: All CT scans at this facility use at least one of these dose optimization techniques: automated exposure control; mA and/or kV adjustment per patient size (includes targeted exams where dose is matched to clinical indication); or iterative reconstruction. Other technique: STROKE PROTOCOL was implemented. COMPARISON: CT head wo con* [id number] 12/09/2023 3:33 PM RADIATION DOSE METRICS: Total DLP (mGy-cm): 1153.58 FINDINGS: Brain: There is mild cerebral atrophy. There is moderate diffuse heterogeneity of the white matter attenuation, consistent with chronic white matter ischemic changes. Negative for acute intracranial hemorrhage. Negative for mass effect on the brain. Negative for midline shift of the brain. Negative for intracranial mass. Elizabeth matter and white matter interfaces are unremarkable. Cerebral ventricles: No ventriculomegaly. Paranasal sinuses: Visualized sinuses are unremarkable. No fluid levels. Mastoid air cells: Visualized mastoid air cells are well aerated. Orbital cavities: Chronic hemorrhage within the left globe redemonstrated. Bones: Unremarkable. No acute fracture. Soft tissues: Unremarkable. CT/CT head thrombolytic [id number] IMPRESSION: Negative for acute intracranial pathology. ASSESSMENT: ASPECTS ([place] Stroke Program Early CT Score) is 10.
--- OUTSIDE RECORDS SUMMARY | 2024-10-06 23:09 | XMS_ITS | Patient Health Record ---
Author Organization [facility], [place] Address [address] [place] [id number] Care Team Providers Care Title One Teacher Name Role Phone Migration, Provider Unavailable Unavailable Reason For Referral No Information Medications Medication SIG (Take, Route, Frequency, Duration) Notes Start Date End Date Status Furosemide 40 MG Tablet Take 1 tablet (4 0 mg) by mouth daily Oral Active glipiZIDE 10 MG Tablet Take 2 tablets (2 0 mg) by mouth one time Oral Active Tamsulosin HCl 0.4 MG Capsule Take 1 capsule (0.4 mg) by mouth daily Oral Active Dabigatran Etexilate Mesylate 150 MG Capsule Take 1 capsule (150 mg) by mouth 2 times per day Oral Active hydrALAZINE HCl 25 MG Tablet Take 1 tablet (25 mg) by mouth BID Oral Active amLODIPine Besylate 10 MG Tablet Take 1 tablet (10 mg) by mouth daily Oral Active Carvedilol 25 MG Tablet Take 1 tablet (2 5 mg) by mouth 2 times per day with food Oral Active Olmesartan Medoxomil 40 MG Tablet Take 1 tablet (40 mg) by mouth daily Oral Active Gabapentin 300 MG Capsule Take 1 capsule (300 mg) by mouth 3 times per day Oral Active Social History Social History Additional Details Category Social Info Options Details Migrated Social History Migrated Social History Alcohol use: Never\n , Light cigarette smoker (1-9 cigs/day) Effective Date:03/25/2021 12:00:00 AM Encounters Encounter Location Date Provider Diagnosis [facility] [address] [place] [phone] 09/03/2024 Provider Migration [facility], [address] [address] 09/04/2024 Provider Migration Plan Of Treatment No Information Insurance Providers Payer Name Payer Address Payer Phone Subscriber Number Group Number Insured Name Patient Relationship to Insured Coverage Start Date Coverage End Date [facility] [address] [place] [phone] [id number] Devang Kraus Self - patient is the insured 1 Medical (General) History Surgical History Surgery Date(Month/Year) Laminectomy, Lumbar w/discectomy
--- OUTSIDE RECORDS SUMMARY | 2024-10-06 23:10 | XMS_ITS | Patient Health Record ---
Author Organization [facility] Address [address] [place], [place] [id number] Care Team Providers Care Gear Room Keeper Name Role Phone HEVER NICHOLSON, NAJMUDDIN Primary Care Provider [phone] Reason For Referral No Information Medications Medication SIG (Take, Route, Frequency, Duration) Notes Start Date End Date Status Lyrica 75 mg 1 capsule Orally qhs ; Duration: 30 days 06/19/2017 Not-Taking Carvedilol 25 MG 1 tablet Orally Twic e a day Active Pradaxa 75 mg 1 capsule Orally Onc e a day; Duration: 30 days Not-Taking Lisinopril 10 MG 1 tablet Orally Once a day; Duration: 30 day(s) 06/19/2017 Active Clarithromycin ER 500 MG 2 tablets with food Orally Once a day; Duration: 7 day(s) Active Furosemide 40 MG 1 tablet Orally Once a day Active Clarithromycin 500 mg 1 tablet Orally Tw ice a day 02/18/2018 Active Olmesartan Medoxomil 40 MG 1 tablet Oral ly Once a day Active Gabapentin 300 MG 1 tablet Orally Thre e times a day Active glipiZIDE ER 10 mg 1 tablet Orally Once a day Active metFORMIN HCl 500 mg 1 tablet with meals Orally Twice a day Active AMLODIPINE 10 MG 1 tablet Orally Once a day; Duration: 90 days Active Social History Tobacco Use: Social History Observation Description Date Details (start date - stop date) Current Smoker NA - NA Tobacco Use: Question Answer Notes Are you a: current smoker Problems Problem Type SNOMED Code ICD Code Onset Dates Problem Status W/U Status Risk Notes Problem Essential hypertension (68286550) Essential (primary) hypertension (I10) Active confirmed Problem Skin ulcer associated with diabetes mellitus (750580823) Type 2 diabetes mellitus with other skin ulcer (E11.622) Active confirmed Problem Chronic atrial fibrillation (493852331) Chronic atrial fibrillation (I48.2) Active confirmed Problem Peripheral vascular disease (478583576) Peripheral vascular disease, unspecified (I73.9) Active confirmed Problem Primary gout (34178696) Idiopathic gout, multiple sites (M10.09) Active confirmed Problem Chronic kidney disease stage 2 (724516235) Chronic kidney disease, stage 2 (mild) (N18.2) Active confirmed Problem Chronic kidney disease stage 3 (381376792) Chronic kidney disease, stage 3 (moderate) (N18.3) Active confirmed Plan Of Treatment Pending Test Test Name Order Date . [facility] (t) all but Medicare - [id number] 09/04/2018 04. Hemoglobin A1c -980420 09/04/2018 Medical (General) History Medical History History ICD Code diabetes hypertension A fib Gout diabetes hypertension A fib Gout diabetes hypertension A fib Gout Surgical History Surgery Date(Month/Year) back surgery 2012 back surgery 2012 back surgery 2012 Hospitalization History Reason Date(Month/Year) diabetic blister 03/2018
--- OUTSIDE RECORDS SUMMARY | 2024-10-06 23:10 | XMS_ITS | Patient Health Record ---
Author Organization [facility] Address [address] [place] [id number] Care Team Providers Care Mapping Editor Name Role Phone ARIADNE KNIGHT Primary Care Provider CECY Garcia Unavailable [phone] Allergies No Known Allergies Reason For Referral No Information Medications Medication SIG (Take, Route, Frequency, Duration) Notes Start Date End Date Status metFORMIN HCl ER 500 MG 1 tablet with ev ening meal Orally Once a day; Duration: 30 day(s) 09/17/2022 Active Atorvastatin Calcium 20 MG 1 tablet Oral ly Once a day; Duration: 90 days Active Xarelto 20 MG 1 tablet with food O rally Once a day; Duration: 30 days 09/25/2022 Active glipiZIDE 10 MG 1 tablet 30 minutes before breakfast Orally Once a day BID Active Trulicity 1.5 MG/0.5ML as directed Subcutaneous Active Indomethacin ER 75 MG 1 capsule with sheyla d or milk Orally Once a day Active Carvedilol 25 MG 1 tablet Orally 2 ti mes a day; Duration: 90 days Active Furosemide 40 MG 1 tablet Orally Once a day; Duration: 90 days Active amLODIPine Besylate 10 MG 1 tablet Orall y Once a day; Duration: 90 days Active Problems Problem Type SNOMED Code ICD Code Onset Dates Problem Status W/U Status Risk Notes Problem Diabetic neuropathy (067303444) Diabetes mellitus due to underlying condition with diabetic neuropathy, unspecified (E08.40) Active confirmed Problem Type II diabetes mellitus without complication (656536174) Type 2 diabetes mellitus without complications (E11.9) Active confirmed Problem Hypertensive heart disease without congestive heart failure (55721633) Hypertensive heart disease without heart failure (I11.9) Active confirmed Problem Conduction disorder of the heart (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) 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) Active confirmed Problem Aortic aneurysm (53043810) Aortic ectasia/dilation/an eurysm, unspecified site (I71.9) Active confirmed Problem Peripheral venous insufficiency (78988462) Venous insufficiency (chronic) (peripheral) (I87.2) Active confirmed Problem Pain in right leg (220227844) Pain in right leg (M79.604) Active confirmed Problem Pain in left leg (265186873) Pain in left leg (M79.605) Active confirmed Problem Dyspnea (389339162) Dyspnea, unspecified (R06.02) Active confirmed Problem Edema (56949565) Edema (R60.1) Active confirmed Problem Electrocardiogram abnormal (336791233) Abnormal electrocardiogram [ECG] [EKG] (R94.31) Active confirmed Problem Longstanding persistent atrial fibrillation (262099721) Longstanding persistent atrial fibrillation (I48.11) Active confirmed Problem Peripheral arterial disease (746884603) Peripheral arterial disease (I73.9) Active confirmed Encounters Encounter Location Date Provider Diagnosis [facility] [address] [facility] [place] [phone] 01/20/2024 CECY MONTALVO Plan Of Treatment Pending Test Test Name Order Date EKG - Electrocardiogram 04/13/2020 Lipid Panel And Chol/HDL Ratio 1 LIPID PANEL, STANDARD 03/13/2021 BASIC METABOLIC PANEL 03/13/2021 HEMOGLOBIN A1c 03/13/2021 Insurance Providers Payer Name Payer Address Payer Phone Subscriber Number Group Number Insured Name Patient Relationship to Insured Coverage Start Date Coverage End Date [employer] [address] [place] [address] [id number] Devang Kraus Self - patient is the insured 3 Medical (General) History Medical History History ICD Code Atrial fibrillation Dyspnea hypertension type II diabetes Aortic ectasia/ Dilation/ Aneurysm, unsp ecified site Diabetes Gout Surgical History Surgery Date(Month/Year) Back Surgery 2013 Vein ablation 09/2020 Back Surgery 01/2022 Hospitalization History Reason Date(Month/Year) Emergency Back Surgery 01/2022 lower back pain @ [facility] 05/25/21 as above
--- OUTSIDE RECORDS SUMMARY | 2024-10-06 23:10 | XMS_ITS | Clinical Summary ---
Author Organization [facility] Address [address] [place] [address] Care Team Providers Care Die Trouble Shooter Name Role Phone Osiris Plummer MD Primary Care Provider [phone] Medications pregabalin (LYRICA) 75 mg Capsule Take 1 Capsule by mouth 3 times daily. 4 Active amLODIPine (NORVASC) 10 mg tablet Take 1 Tablet (10 mg) by mouth daily. 30 Tablet 4 Active atorvastatin (LIPITOR) 40 mg tablet Take 1 Tablet (40 mg) by mouth daily. 30 Tablet 4 Active dabigatran etexilate (Pradaxa) 150 mg Capsule Take 1 Capsule (150 mg) by mouth 2 times daily. 60 Capsule 4 Active glipiZIDE (GLUCOTROL XL) 10 mg Extended Release 24 hour tablet Take 1 Tablet (10 mg) by mouth daily with breakfast. 60 Tablet 4 Active hydrALAZINE (APRESOLINE) 50 mg tablet Take 1 Tablet (50 mg) by mouth every 8 hours. 90 Tablet 4 Active metFORMIN (GLUCOPHAGE) 850 mg tablet Take 1 Tablet (850 mg) by mouth 2 times daily with meals. 60 Tablet 4 Active prednisoLONE acetate (PRED FORTE) 1 % suspension Administer 1 Drop in left eye 3 times daily. 5 mL 4 Active acetaminophen (TYLENOL) 325 mg tablet Take 2 Tablets (650 mg) by mouth every 6 hours as needed for Other (See Comment) (See admin instructions). 4 Active aspirin (ECOTRIN EC) 81 mg Tablet, Delayed Release (E.C.) Take 1 Tablet (81 mg) by mouth daily with breakfast. 30 Tablet 4 Active magnesium hydroxide (MILK OF MAGNESIA) 400 mg/5 mL suspension Take 30 mL by mouth 1 time daily as needed for Constipation. 4 Active pantoprazole (PROTONIX) 40 mg Tablet, Delayed Release (E.C.) Take 1 Tablet (40 mg) by mouth daily before breakfast. 30 Tablet 4 Active sennosides-doc usate sodium (SENNA-S) 8.6-50 mg tablet Take 1 Tablet by mouth 2 times daily as needed for Constipation. 4 Active dulaglutide (Trulicity) 1.5 mg/0.5 mL injection Inject 1.5 mg by subcutaneous injection. Active neomycin-polym yxin-dexAMETHa sone (Maxitrol) 3.5mg/mL-10,00 0 unit/mL-0.1 % suspension Administer 1 Drop in left eye see administration instructions. QID x 7 days, TID x 7 days, BID x 7 days, q-day x 7 days, stop 5 mL 1 5 Active cyclobenzaprin e (FLEXERIL) 10 mg tablet Take 10 mg by mouth 3 times daily as needed for Spasm. Active tamsulosin (FLOMAX) 0.4 mg capsuleIndicat ions:BPH associated with nocturia Take 1 Capsule (0.4 mg) by mouth daily. 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, without long-term current use of insulin 08/19/2023 Type 2 diabetes mellitus wit h retinopathy, without long-term current use of insulin 08/19/2023 Encounters Date Type Department Care Team Description 09/21/2024 External Device Data STL ABSTRACTION Provider, Abstract 08/31/2024 External Device Data ST[facility] ABSTRACTION Provider, Abstract 08/31/2024 External Device Data ST[facility] ABSTRACTION Provider, Abstract 08/31/2024 External Device Data ST[facility] ABSTRACTION Provider, Abstract 08/03/2024 External Device Data ST[facility] ABSTRACTION Provider, Abstract 08/02/2024 External Device Data ST[facility] ABSTRACTION Provider, Abstract 07/26/2024 External Device Data ST[facility] ABSTRACTION Provider, Abstract 07/12/2024 External Device Data ST[facility] ABSTRACTION Provider, Abstract 07/08/2024 External Device Data ST[facility] ABSTRACTION Provider, Abstract 07/07/2024 External Device Data STL ABSTRACTION Provider, Abstract 07/06/2024 External Device Data STL ABSTRACTION Provider, Abstract from Last 3 Months Social History Tobacco Use Types Packs/Day Years Used Date Smoking Tobacco: Every Day Cigarettes Tobacco Cessation:Ready to Q uit: Not Asked; Counseling Given: No Alcohol Use Standard Drinks/Week Comments Not Currently 0 (1 standard drink = 0.6 oz pur e alcohol) Feeling Safe Answer Date Recorded Are you in a relationship wi th someone who hurts you emotionally and/or physically? No 02/24/2024 Food Insecurity Answer Date Recorded Patient needs follow up regardin 06/09/2024 Transportation Needs Answer Date Record ed Patient needs follow up regardin 06/09/2024 Housing Stability Answer Date Recorded Social/Environmental Concerns No concerns Utility Needs Answer Date Recorded Patient needs follow up regardin 06/09/2024 Sex and Gender Information Value Date Recorded Sex Assigned at Not on file Legal Sex Male 12:43 PM CDT Gender Identity Not on file Sexual Orientation Not on file Last Filed Vital Signs Vital Sign Reading Time Taken Comments Blood Pressure 139/89 02/24/2024 3:26 PM CLOCK REPAIRER Pulse 64 01/06/2024 9:43 AM CLOCK REPAIRER Temperature 36.1 C (97 F) 02/24/2024 3:26 PM CLOCK REPAIRER Respiratory Rate 18 02/24/2024 3:26 PM CLOCK REPAIRER Oxygen Saturation 96% 02/24/2024 3:26 PM CLOCK REPAIRER Inhaled Oxygen Concentration - - Weight 130.2 kg (287 lb) 02/16/2024 9:16 AM CLOCK REPAIRER Height 198.1 cm (6' 6 ) 02/16/2024 9:16 AM CLOCK REPAIRER Body Mass Index 33.17 02/16/2024 9:16 AM CLOCK REPAIRER Plan of Treatment Health Maintenance Due Date Last Done Comments DIABETES ANNUAL FOOT EXAM 11/08/1983 DIABETES MICROALBUMIN ANNUAL SCREEN 11/08/1983 LDL CHOLESTEROL ANNUAL 11/08/1983 DTAP/TDAP/TD VACCINES (1 - Tdap) 1984 HEPATITIS B VACCINES (1 of 3 - 19+ 3-dose series) 1984 COLORECTAL SCREENING 2010 Colorectal Cancer Screening 2010 FIT-DNA Q 3 years 2010 FIT/FOBT Q 1 year 2010 Flex Sig/CT Colonography Q 5 years 2010 ZOSTER VACCINE (1 of 2) 11/08/2015 DIABETES HBA1C Q 6 MONTHS 06/17/2022 12/18/2021 INFLUENZA VACCINE (#1) 2024 DIABETES ANNUAL RETINAL EXAM 03/02/2025, 03/02/2024, 03/02/2024, Additional history exists Abdominal Aortic Aneurysm (A AA) Screening Completed 05/14/2021 Medical Devices Implanted Type Area Puppy Sitter Device Identifier Shelf Expiration Date Model / Serial / Lot Ring Tension Capsular Type 14c [id number] - [id number] Implanted:Qty: 1 on 02/24/2024 by Avi Santamaria MD at [facility] Eye Left: Eye [employer] 07/15/2028 [id number] / [id number] / [id number] Oil Slc 8.5ml [id number] - [id number] Implanted:Qty: 1 on 02/24/2024 by Matt Verduzco MD at [facility] Eye Left: Eye [employer] 10/16/2026 [id number] / [id number] Lens Iol Tecnis Eyhance 23.5 [id number] - [id number] Implanted:Qty: 1 on 02/24/2024 by Avi Santamaria MD at [facility] Lens Left: Eye [employer] [id number] 10/14/2026 [id number] / [id number] / Explanted Type Area Puppy Sitter Device Identifier Shelf Expiration Date Model / Serial / Lot Oil Slc 8.5ml [id number] - [id number] Implanted:Qty: 1 on 08/26/2023 by Matt Verduzco MD at [facility] Explanted:Qty: 1 on 09/30/2023 by Matt Verduzco MD at [facility] Eye Left: Eye [employer] 04/15/2026 [id number] / [id number] Description:[id number] GTIN: [id number] Oil Slc 8.5ml [id number] - [id number] Implanted:Qty: 1 on 09/30/2023 by Matt Verduzco MD at [facility] Explanted:Qty: 1 on 02/24/2024 by Matt Verduzco MD at [facility] Eye Left: Eye [employer] 06/15/2026 [id number] / / [id number] Description:GTIN: [id number] [id number] Insurance PPO [facility] Advance Directives For more information, please contact: [phone] * Full Code (Latest Code Status on File) Date Activated Date Inactivated Comments 02/24/2024 11:47 AM 02/24/2024 6:15 PM * Full Code Date Activated Date Inactivated Comments 12/16/2023 12:18 PM 01/06/2024 3:58 PM * Default Full Code - Needs Discussion Date Activated Date Inactivated Comments 12/14/2023 4:23 PM 12/16/2023 12:18 PM Care Teams Die Trouble Shooter Relationship Specialty Start Date End Date Osiris Plummer MD [address] [phone] PCP - General Family Practice 08/19/23
--- NOTE | 2024-10-06 23:13 | ECG_ITS ---
[employer] Test Date: 2024-10-06 Pat Name: Devang Kraus Department: Room: Gender: Male Brass Pourer: : 1965 Requested By: William Israel Order Number: [id number] Brito MD: Carlos Enrique Damon M.D. Measurements Intervals [place] Rate: 71 P: 0 MT: 0 QRS: -70 QRSD: 152 T: 12 QT: 424 QTc: 462 Interpretive Statements ATRIAL FIBRILLATION RIGHT BUNDLE BRANCH BLOCK [120+ ms QRS DURATION, UPRIGHT V1, 40+ ms S IN I/aVL/V4/V5/V6] ANTERIOR MYOCARDIAL INFARCTION , OF INDETERMINATE AGE [40+ ms Q WAVE AND/OR ST/T ABNORMALITY IN V3/V4] INFERIOR MYOCARDIAL INFARCTION , PROBABLY OLD [40+ ms Q WAVE AND/OR ST/T ABNORMALITY IN II/aVF] Compared to ECG 12/08/2023 14:06:14 No significant changes Baseline artifacts, need to repeat Electronically Signed On 10-07-2024 14:07:18 CDT by Carlos Enrique Damon M.D. [email or web address]
--- NOTE | 2024-10-06 23:13 | XRR_ITS ---
PROCEDURE INFORMATION: Exam: XR Chest Exam date and time: 10/06/2024 11:33 PM Age: 58 years old Clinical indication: Other: Weakness; Additional info: Stroke like symptoms TECHNIQUE: Imaging protocol: Radiologic exam of the chest. Views: 1 view. COMPARISON: CT angio headneck* [id number] 12/08/2023 2:20 PM FINDINGS: Lungs: Unremarkable. No consolidation. Pleural spaces: Unremarkable. No pleural effusion. No pneumothorax. Heart/Mediastinum: Substantial cardiomegaly. Bones/joints: Unremarkable. XR/XR chest 1V portable [id number] IMPRESSION: Negative for acute chest pathology.
[2024-10-06 23:20] LABS: Hematocrit 45.6 % (37-53); Hemoglobin 16.40 g/dL (11.27-16.99); Mean Corpuscular HGB Conc 36.0 g/dL (30-55); Mean Corpuscular Hemoglobin 29.9 pg (27-33); Mean Corpuscular Volume 83.1 fl (82-101); Nucleated Red Blood Cells % 0 %; Platelet Count 300 10^3/cmm (157-399); Red Blood Count 5.49 10^6/uL (3.85-5.65); White Blood Count 12.32 10^3/uL (3.29-11.43)
--- NOTE | 2024-10-06 23:29 | CTR_ITS ---
PROCEDURE INFORMATION: Exam: CTA Head With Contrast, Arteriography Exam date and time: 10/06/2024 11:43 PM Age: 58 years old Clinical indication: Weakness and other: Right facial droop; Additional info: Stroke like symptoms TECHNIQUE: Imaging protocol: Computed tomographic angiography of the head with contrast. Exam focused on the arteries. 3D rendering (Not supervised by radiologist): MIP and/or 3D reconstructed images were created by the technologist. Radiation optimization: All CT scans at this facility use at least one of these dose optimization techniques: automated exposure control; mA and/or kV adjustment per patient size (includes targeted exams where dose is matched to clinical indication); or iterative reconstruction. Contrast material: OMNI 350; Contrast volume: 100 ml; Contrast route: INTRAVENOUS (IV); COMPARISON: CT angio headneck* [id number] 12/08/2023 2:20 PM RADIATION DOSE METRICS: Total DLP (mGy-cm): 556.19 FINDINGS: ANTERIOR CIRCULATION: Right internal carotid artery: Intracranial segment is patent with no significant stenosis. No aneurysm. Right middle cerebral artery: No occlusion or significant stenosis. No aneurysm. Right anterior cerebral artery: No occlusion or significant stenosis. No aneurysm. Left internal carotid artery: Intracranial segment is patent with no significant stenosis. No aneurysm. Left middle cerebral artery: No occlusion or significant stenosis. No aneurysm. Left anterior cerebral artery: No occlusion or significant stenosis. No aneurysm. POSTERIOR CIRCULATION: Right vertebral artery: No occlusion or significant stenosis. No aneurysm. Left vertebral artery: No occlusion or significant stenosis. No aneurysm. Basilar artery: No occlusion or significant stenosis. No aneurysm. Right posterior cerebral artery: No occlusion or significant stenosis. No aneurysm. Left posterior cerebral artery: No occlusion or significant stenosis. No aneurysm. Brain: No definite mass, mass effect, or midline shift. Cerebral ventricles: No ventriculomegaly. Bones/joints: Unremarkable. No acute fracture. Soft tissues: Unremarkable. PROCEDURE INFORMATION: Exam: CTA Neck With Contrast Exam date and time: 10/06/2024 11:43 PM Age: 58 years old Clinical indication: Weakness and other: Right facial droop; Additional info: Stroke like symptoms TECHNIQUE: Imaging protocol: Computed tomographic angiography of the neck with contrast. Exam focused on the cervical segments of the vasculature. 3D rendering (Not supervised by radiologist): MIP and/or 3D reconstructed images were created by the technologist. Radiation optimization: All CT scans at this facility use at least one of these dose optimization techniques: automated exposure control; mA and/or kV adjustment per patient size (includes targeted exams where dose is matched to clinical indication); or iterative reconstruction. Contrast material: OMNI 350; Contrast volume: 100 ml; Contrast route: INTRAVENOUS (IV); COMPARISON: CT angio headneck* [id number] 12/08/2023 2:20 PM RADIATION DOSE METRICS: Total DLP (mGy-cm): 556.19 FINDINGS: Right common carotid artery: No stenosis. No dissection or occlusion. Right internal carotid artery: No stenosis of the extracranial segment. No dissection or occlusion. Right external carotid artery: No occlusion or stenosis of the origin. Left common carotid artery: No stenosis. No dissection or occlusion. Left internal carotid artery: No stenosis of the extracranial segment. No dissection or occlusion. Left external carotid artery: No occlusion or stenosis of the origin. Right vertebral artery: No stenosis. No dissection or occlusion. Left vertebral artery: No stenosis. No dissection or occlusion. Soft tissues: Normal. No significant soft tissue swelling. Bones/joints: No acute fracture. CT/CT angio headneck* [id number] IMPRESSION: No large vessel stenosis or occlusion. IMPRESSION: No carotid artery stenosis or occlusion. REFERENCES: NASCET CRITERIA. The degree of stenosis in the cervical segment of the internal carotid artery is based on NASCET criteria. Normal is no stenosis. Mild is less than 50% stenosis. Moderate is 50-69% stenosis. Severe is 70% to 99% stenosis. Total occlusion is no detectable patent lumen.
[2024-10-06 23:30] LABS: INR 1.03 (0.8-1.2); Prothrombin Time 14.20 SECONDS (12.1-14.9)
[2024-10-06 23:31] LABS: Partial Thromboplastin Time 29.3 SECONDS (23.9-36.7)
[2024-10-06 23:34] LABS: Troponin(5th) Baseline 32 ng/L (0-15)
--- NOTE | 2024-10-06 23:34 | ED_ITS ---
HPI - Neuro Symptoms/Deficit 2 General: Chief Complaint: Neuro Symptoms/Deficit Stated Complaint: Stroke Alert Time Seen by Provider: 10/06/24 23:07 History of Present Illness: Patient with history of prior cerebrovascular accident (CVA) causing chronic left-sided weakness and visual field deficit was in bed watching TV with spouse when new right-sided weakness and difficulty speaking began at approximately 21:45. Emergency Medical Services (EMS) arrived at 22:45; Emergency Department (ED) evaluation started about 1 hour 15 minutes after symptom onset. Initial exam showed flaccid right arm with absent regional marketing manager; right leg strength was preserved. Speech was slurred and comprehension intact; patient could follow commands with thumbs-up. Vision reported as unchanged. During serial assessment the right arm and speech improved, and the patient became more arousable. No sensory loss reported. Glucose first read 207 mg/dL. Blood pressure on arrival 156/108 mmHg. Related Data Home Medications ?Medication ?Instructions ?Recorded ?Confirmed glipizide 10 mg tablet, extended 10 mg PO DAILY 06/07/24 release 24 hr Previous Rx's ?Medication ?Instructions ?Recorded diabetic shoes with inserts #1 ea 09/08/23 hydralazine 25 mg tablet 25 mg PO BID #60 tabs dulaglutide 1.5 mg/0.5 mL 1.5 mg (0.5 mL) SUBCUT .week ly #2 05/25/24 subcutaneous pen injector mL (Trulicity) furosemide 40 mg tablet 40 mg PO DAILY #30 tabs 11/10 metformin 500 mg tablet,extended 500 mg PO BID #60 tab s 05/25/24 release 24 hr pregabalin 75 mg capsule (Lyrica) 75 mg PO TID #90 cap s 05/25/24 doxycycline hyclate 100 mg capsule 100 mg PO BID #14 c aps 05/30/24 dabigatran etexilate 150 mg 150 mg PO BID 30 days #180 caps 06/07/24 capsule (Pradaxa) amlodipine 10 mg tablet 10 mg PO DAILY #30 tabs 052 0 atorvastatin 40 mg tablet (Lipitor) 40 mg PO DAILY #30 tabs 07/05/24 carvedilol 25 mg tablet 25 mg PO BID #60 tabs cyclobenzaprine 10 mg tablet 10 mg PO .qhs PRN muscle spasms 05/20/25 #30 tabs olmesartan 40 mg tablet 40 mg PO DAILY #30 tabs 06/17 0 potassium chloride 10 mEq See Rx Instructions .Route 0 08/01/24 capsule,extended release .COMPLEX #30 caps warfarin 3 mg tablet 3 mg PO DAILY #30 tabs 09/26 Allergies Allergy/AdvReac Type Severity Reaction Status Date / Time No Known Allergies Allergy Verified 06/07/24 12:58 PFSH ED 2 PFSH: Medical History Anticoagulant long-term use Screening PSA (prostate specific antigen) A-fib Diabetic neuropathy Diabetes mellitus Gout Hypertension Surgical History History of detached retina repair History of back surgery Family History Other Cancer Social History Smoking and tobacco/nicotine status: current every day tobacco/nicotine user (1/2 PPD) cigarettes Packs smoked per day: 0.5 Years cigarettes smoked: 30 Second hand smoke exposure: Yes Alcohol intake: never Substance/Drug Use: never Caregiver/support person: Yes Lives independently: Yes Household members: spouse Marital status: service: No Current occupational status: disabled Do you think of yourself as: Straight/Heterosexual Current gender identity: Male Special jewels needs: No Agree to transfusion: Yes NIH stroke score 2 NIHSS: Level Of Consciousness - 1a: 0 Level Of Consciousness Questions - 1b: One Correct Level Of Consciousness Commands - 1c: Both Correct Best Gaze - 2: Normal Visual Hernandez - 3: No Visual Loss Facial Palsy - 4: Minor Paralysis Motor Arm Right - 5: No Drift Motor Arm Left - 5: No Drift M otor Leg Right - 6: No Drift Motor Leg Left - 6: No Drift Limb Ataxia - 7: Absent Sensory - 8: Normal Best Language - 9: Mild/Moderate Aphasia D ysarthia - 10: Mild/Moderate Dysarthia Extinction And Inattention - 11: 0 Score: Total Score: 4 Physical Exam 2 Const: COMMON NORMALS: no acute distress HENMT: COMMON NORMALS: normocephalic and atraumatic HEAD & SCALP: n ormocephalic and atraumatic Eye: COMMON NORMALS: Equal, round and reactive pupils present, EOMs intact bilaterally and no scleral icterus PUPIL: Yes Equal, round and reactive pupils present Resp: COMMON NORMALS: normal respiratory effort and No retractions Cardio: OTHER: Irregularly irregular rhythm, normal rate. No murmur GI: COMMON NORMALS: Normal to inspection, nondistended, normoactive bowel sounds present, Soft to palpation and non-tender PALPATION: Yes Soft to palpation Neuro: OTHER: Speech disturbance, evolving right-sided deficits as delineated in HPI and NIH score. Skin: COMMON NORMALS: no rashes or lesions noted GENERAL SKIN EXAM: no rashes or lesions noted Course 2 Vital Signs: Vital signs: Vital Signs Pulse Rate 85 10/07/24 01:42 Respiratory Rate 17 10/07/24 01:42 Blood Pressure 114/98 10/07/24 01:42 Pulse Oximetry 96 10/07/24 01:42 MDM - Neuro Symptoms/Deficit Medical Decision Making Patient remained hemodynamically stable through ED course. Stroke symptoms are evolving and improving with time. Initially, EMS states that he had profound right arm and leg weakness and sensory deficits as well as almost complete aphasia. Within the first hour of his stay in the emergency department he regained complete strength and sensation of the right upper and lower extremities and began to speak although with dysarthria. I spoke with on-call neurology who agrees that due to his warfarin use, recent TNKase treatment, and rapid improvement of symptoms that he is not likely to candidate for TNKase. CTA of the head and neck showed nothing acute. Plain CT noncontrast of the brain shows nothing acute. He remains in atrial fibrillation and INR is 1.0 which may be the cause of his symptoms today. I spoke with the hospitalist service who will admit the patient for further observation and care Lab Data 10/06/24 23:00 10/06/24 23:[address] 10/06/24 23:09 IMPRESSION: Negative for acute intracranial pathology. ASSESSMENT: ASPECTS (Aarti Stroke Program Early CT Score) is 10. ADDENDUM: 10/06/24 5112 Findings were discussed with JONY Oakley at 10/06/2024 11:19 PM CDT. Chest X-Ray 10/06/24 23:13 IMPRESSION: Negative for acute chest pathology. Head/Neck CTA 10/06/24 23:29 IMPRESSION: No large vessel stenosis or occlusion. IMPRESSION: No carotid artery stenosis or occlusion. REFERENCES: NASCET CRITERIA. The degree of stenosis in the cervical segment of the internal carotid artery is based on NASCET criteria. Normal is no stenosis. Mild is less than 50% stenosis. Moderate is 50-69% stenosis. Severe is 70% to 99% stenosis. Total occlusion is no detectable patent lumen. Laboratory Results WBC 12.32 10^3/uL (3.29-11.43) H 10/06/24 23:00 RBC 5.49 10^6/uL (3.85-5.65) 10/06/24 23:00 Hgb 16.40 g/dL (11.27-16.99) 10/06/24 23:00 Hct 45.6 % (37-53) 10/06/24 23:00 MCV 83.1 fl (82-101) 10/06/24 23:00 MCH 29.9 pg (27-33) 10/06/24 23:00 MCHC 36.0 g/dL (30-55) 10/06/24 23:00 RDW 13.1 % (12.1-15.1) 10/06/24 23:00 Plt Count 300 10^3/cmm (157-399) 10/06/24 23:00 MPV 10.1 fL (7.4-10.4) 10/06/24 23:00 Neut % (Auto) 75.2 % 10/06/24 23:00 Lymph % (Auto) 13.4 % 10/06/24 23:00 Day % (Auto) 7.8 % 10/06/24 23:00 Eos % (Auto) 2.4 % 10/06/24 23:00 Baso % (Auto) 0.8 % 10/06/24 23:00 Neut # (Auto) 9.27 10^3/uL (1.8-7.7) H 10/06/24 23:00 Lymph # (Auto) 1.7 10^3/uL (0.8-4.8) 10/06/24 23:00 Day # (Auto) 1.0 10^3/uL (0.2-0.9) H 10/06/24 23:00 Eos # (Auto) 0.3 10^3/uL (0.0-0.8) 10/06/24 23:00 Baso # (Auto) 0.1 10^3/uL (0.0-0.1) 10/06/24 23:00 Nucleated RBC % (auto) 0 % 10/06/24 23:00 Nucleated RBCs # 0.0 /100WBC 10/06/24 23:00 PT 14.20 SECONDS (12.1-14.9) 10/06/24 23:00 INR 1.03 (0.8-1.2) 10/06/24 23:00 APTT 29.3 SECONDS (23.9-36.7) 10/06/24 23:00 Sodium 139 mmol/L (136-145) 10/06/24 23:00 Potassium 3.5 mmol/L (3.5-5.1) 10/06/24 23:00 Chloride 100 mmol/L (98-107) 10/06/24 23:00 Carbon Dioxide 25 mmol/L (22-29) 10/06/24 23:00 Anion Gap 17.5 (5-19) 10/06/24 23:00 BUN 8 mg/dL (6-20) 10/06/24 23:00 Creatinine 0.9 mg/dL (0.7-1.2) 10/06/24 23:00 GFR Calculation 86.7 mL/min (90-130) L 10/06/24 23:00 Glucose 221 mg/dL (65-115) H 10/06/24 23:00 Calculated Osmolality 293 mOsm/kg (285-295) 10/06/24 23:00 Calcium 9.2 mg/dL (8.5-10.5) 10/06/24 23:00 Total Bilirubin 0.8 mg/dL (0.15-1.2) 10/06/24 23:00 AST 21 U/L (0-40) 10/06/24 23:00 ALT 32 U/L (0-41) 10/06/24 23:00 Alkaline Phosphatase 112 U/L (40-130) 10/06/24 23:00 Troponin T Baseline 32 ng/L (0-15) H 10/06/24 23:00 Troponin T 120 Minute 32.46 ng/L (0-15) H 10/07/24 01:13 Delta Troponin T 0.46 ABS# (0-10) 10/07/24 01:13 Total Protein 7.2 g/dL (6.6-8.7) 10/06/24 23:00 Albumin 4.3 g/dL (3.5-5.2) 10/06/24 23:00 Globulin 2.9 g/dL (1.3-4.6) 10/06/24 23:00 Urine Color Yellow (Yellow) 10/07/24: Urine Appearance Clear (CLEAR) 10/07/24: Urine pH 7.5 (5-7) 10/07/24: Ur Specific [place] 1.023 (1.005-1.030) 10/07/24 00: Urine Protein Trace (Negative) A 10/07/24: Urine Glucose (UA) 1+ (Normal) H 10/07/24 00: Urine Ketones Negative (Negative) 10/07/24 00: Urine Blood Negative (Negative) 10/07/24 00: Urine Nitrate Negative (Negative) 10/07/24: Urine Bilirubin Negative (Negative) 10/07/24: Urine Urobilinogen 1.0 mg/dL (Negative) 10/07/24 00: Ur Leukocyte Esterase Negative (Negative) 10/07/24 00: Urine RBC 0-2 /hpf (0-2) 10/07/24 00: Urine WBC 0-5 /hpf (0-5) 10/07/24: Ur Squamous Epith Cells 0-5 /hpf (0-5) 10/07/24 00: Amorphous Sediment Not Reportable 10/07/24 00: Urine Bacteria None seen /hpf (NONE) 10/07/24: Hyaline Casts 1.65 /lpf 10/07/24: Urine Opiates Screen Negative ng/mL (Negative) 10/07/24 00: Ur Barbiturates Screen Negative ng/mL (Negative) 10/07/24 00: Ur Phencyclidine Scrn Negative ng/mL (Negative) 10/07/24 00: Ur Amphetamines Screen Negative ng/mL (Negative) 08/22/25 00:29 U Benzodiazepines Scrn Negative ng/mL (Negative) 10/07/24 00:29 Urine Cocaine Screen Negative ng/mL (Negative) 10/07/24 00:29 U Marijuana (THC) Screen Negative ng/mL (Negative) 10/07/24 00:29 All radiology interpretation(s) finalized by discharge EKG Data EKG 1: Interpretation: Time?2327?atrial fibrillation, rate of 71, right bundle branch block pattern, no ST segment elevation or depression, QTc = 446 Discharge Plan Discharge Patient Disposition: Admitted As Inpatient Admit Provider: Malachi Prince Clinical Impression: Stroke-like symptom Condition: Stable Coding Level of Care Code ED Implementation Manager for Fortino Bennett
[2024-10-06 23:36] LABS: Alanine Aminotransferase 32 U/L (0-41); Albumin Level 4.3 g/dL (3.5-5.2); Alkaline Phosphatase 112 U/L (40-130); Anion Gap 17.5 (5-19); Aspartate Amino Transferase 21 U/L (0-40); Blood Urea Nitrogen 8 mg/dL (6-20); Calcium 9.2 mg/dL (8.5-10.5); Carbon Dioxide 25 mmol/L (22-29); Chloride 100 mmol/L (98-107); Creatinine Clr Calc Pharmacy 132.9898; Globulin 2.9 g/dL (1.3-4.6); Glucose 221 mg/dL (65-115); Osmolality Calculated 293 mOsm/kg (285-295); Potassium 3.5 mmol/L (3.5-5.1); Sodium 139 mmol/L (136-145); Total Protein 7.2 g/dL (6.6-8.7)
[2024-10-07] VITALS (27 sets, daily range): BP systolic 114–165; BP diastolic 77–117; PULSE 68–118; RESP 12–24; TEMP 36.3–36.8; O2SAT 90–99; BMI 29.7
[2024-10-07 00:47] LABS: PCP Screen Urine Negative (Negative)
[2024-10-07 00:57] LABS: Add Urine Microscopic? YES; Glucose Urine UA 1+ (Normal); Nitrate Urine Negative (Negative); Specific Gravity, Urine 1.023 (1.005-1.030)
[2024-10-07 01:56] LABS: Troponin 5 2HR 32.46 ng/L (0-15); Troponin 5 2HR Delta 0.46 ABS# (0-10)
--- NOTE | 2024-10-07 01:58 | PM.HP ---
Providers/Chief Complaint Admitting Physician: Malachi Prince MD Primary Care Provider: ROBBY Cote Chief Complaint: Stroke Alert History of Present Illness Devang Kraus is a 58 year old male atrial fibrillation on Pradaxa, hypertension, and diabetes, history of right NATI stroke, status post TNKase in November 2023, left-sided, with persistent left leg weakness, who presents [facility] for stroke alert, patient was in bed watching TV with spouse, when developed right sided weakness, difficulty speaking, starting at 2145, EMS arrived at 2245, emergency evaluation started about 1 hour 50 minutes after symptom onset, he is NIH stroke scale was 4 on arrival, was not a tPA candidate as he is on Pradaxa, CT head no acute findings, CTA head and neck no amenable lesions to thrombectomy, during my examination, Devang has right-sided facial droop, word finding difficulty he has good director motion picture strength bilaterally, I would see equal, he has good bilateral lower extremity strength equal bilaterally, has trouble following commands, trouble coming up with the right words, pupils equal round reactive to light, it is hard to do visual field testing given his productive and receptive aphasia, Review of Systems General: Reports: ROS unobtainable due to mental status Medications/Allergies Home Medications ?Medication ?Instructions ?Recorded ?Confirmed ?Last Taken ?Type diabetic shoes with inserts #1 ea 09/08/23 06/07/24 Unknown Rx hydralazine 25 mg tablet 25 mg PO BID #60 tabs 11/04/23 06/07/24 12/08/23 Rx glipizide 10 mg tablet, extended 10 mg PO DAILY 01/12/24 06/07/24 Unknown History release 24 hr dulaglutide 1.5 mg/0.5 mL 1.5 mg (0.5 mL) SUBCUT .weekly #2 05/25/24 06/07/24 Unknown Rx subcutaneous pen injector mL (Trulicity) furosemide 40 mg tablet 40 mg PO DAILY #30 tabs 05/25/24 06/07/24 Unknown Rx metformin 500 mg tablet,extended 500 mg PO BID #60 tabs 05/25/24 06/07/24 Unknown Rx release 24 hr pregabalin 75 mg capsule (Lyrica) 75 mg PO TID #90 caps 05/25/24 06/07/24 Unknown Rx doxycycline hyclate 100 mg capsule 100 mg PO BID #14 caps 05/30/24 06/07/24 Unknown Rx dabigatran etexilate 150 mg 150 mg PO BID 30 days #180 caps 06/07/24 06/07/24 Unknown Rx capsule (Pradaxa) amlodipine 10 mg tablet 10 mg PO DAILY #30 tabs 07/05/24 Unknown Rx atorvastatin 40 mg tablet (Lipitor) 40 mg PO DAILY #30 tabs 07/05/24 Unknown Rx carvedilol 25 mg tablet 25 mg PO BID #60 tabs 07/05/24 Unknown Rx cyclobenzaprine 10 mg tablet 10 mg PO .qhs PRN muscle spasms 07/05/24 Unknown Rx #30 tabs olmesartan 40 mg tablet 40 mg PO DAILY #30 tabs 07/05/24 Unknown Rx potassium chloride 10 mEq See Rx Instructions .Route 08/01/24 Unknown Rx capsule,extended release .COMPLEX #30 caps warfarin 3 mg tablet 3 mg PO DAILY #30 tabs 09/26/24 09/26/24 Unknown Rx Allergies Allergy/AdvReac Type Severity Reaction Status Date / Time No Known Allergies Allergy Verified 06/07/24 12:58 PFSH Acute PFSH: Medical History Anticoagulant long-term use Screening PSA (prostate specific antigen) A-fib Diabetic neuropathy Diabetes mellitus Gout Hypertension Surgical History History of detached retina repair History of back surgery Family History Other Cancer Social History Smoking and tobacco/nicotine status: current every day tobacco/nicotine user (1/2 PPD) cigarettes Packs smoked per day: 0.5 Years cigarettes smoked: 30 Second hand smoke exposure: Yes Alcohol intake: never Substance/Drug Use: never Caregiver/support person: Yes Lives independently: Yes Household members: spouse Marital status: service: No Current occupational status: disabled Do you think of yourself as: Straight/Heterosexual Current gender identity: Male Special jewels needs: No Agree to transfusion: Yes Vitals/I&O/Wt Last Vital Signs Pulse 85 10/07/24 01:42 Resp 17 10/07/24 01:42 BP 114/98 10/07/24 01:42 Pulse Ox 96 10/07/24 01:42 Weight last 48 hrs Weight 122.186 kg Physical Exam Const: COMMON NORMALS: no acute distress HENMT: COMMON NORMALS: normocephalic HEAD & SCALP: normocephalic Eye: COMMON NORMALS: Equal, round and reactive pupils present Neck/C-Spine: COMMON NORMALS: no JVD Resp: COMMON NORMALS: normal respiratory effort, No retractions, No use of accessory muscles and clear to auscultation bilaterally AUSCULTATION: clear to auscultation bilaterally Cardio: COMMON NORMALS: regular rate, regular rhythm, S1 normal heart sound present and S2 normal heart sound present RATE: regular rate RHYTHM: regular rhythm HEART SOUNDS: S1 normal heart sound present and S2 normal heart sound present GI: COMMON NORMALS: Normal to inspection, nondistended, normoactive bowel sounds present, Soft to palpation and non-tender Extremity: COMMON NORMALS: no calf tenderness and no pedal edema Neuro: COMMON NORMALS: moves all extremities and no focal motor deficits OTHER: Right sided facial droop, productive aphasia, receptive aphasia, word salad, I cannot discern any right sided weakness currently, currently it seems equal bilaterally, it is hard to do [id number], given his receptive aphasia, difficult to do visual field testing given his receptive aphasia Data 10/06/24 23:00 10/06/24 23:00 A&P Assessment and plan 1. A-fib: 2. Acute CVA (cerebrovascular accident): Plan: Acute CVA - NIH stroke scale 4 - Symptom onset 2144 - Right-sided deficits -Currently has word finding difficulty, slurring his words, right facial droop, - Not a tPA candidate - On Pradaxa ct head - CT/CT head thrombolytic 86561 IMPRESSION: Negative for acute intracranial pathology. CTA head and neck CT/CT angio headneck* [id number] IMPRESSION: No large vessel stenosis or occlusion. IMPRESSION: No carotid artery stenosis or occlusion. Plan - Neurochecks - NIH stroke scale - Aspiration precautions - N.p.o. - PT OT -Speech therapy - Aspirin - Statin -IV fluids - Treat systolic blood pressure of greater than 220, diastolic greater than 120 - Telemetry monitoring - Will hold Pradaxa for at least 48 hours to 72 hours, depending on discussion with neurology - Type 2 diabetes mellitus, low-dose insulin sliding scale - Full code - Lovenox for DVT prophylaxis PDMP PDMP Reviewed: Not Reviewed Attestations Medical Necessity Statement*: Patient requires hospitalization, inpatient, greater than 2 midnights, for acute CVA Diagnoses A-fib I48.91 Acute CVA (cerebrovascular accident) I63.9
[2024-10-07 02:28] LABS: NT Pro B Type Natriuretic Pept 1248 pg/mL (0-125)
[2024-10-07] MEDS: pantoprazole 40 mg SDV IVP (03:21)
[2024-10-07 03:28] LABS: Estmated Average Glucose 148; Hemoglobin A1C 6.8 % (4.0-6.0)
[2024-10-07 03:37] LABS: Cholesterol 115 mg/dL (0-200); HDL Cholesterol 35 mg/dL (60-100); Thyroid Stimulating Hormone 2.41 uIU/mL (0.27-4.20); Triglycerides 172 mg/dL (0-150)
[2024-10-07 05:46] LABS: Troponin 5 6HR 28.88 ng/L (0-15)
[2024-10-07 05:55] LABS: Troponin 5 6HR Delta -3.12 ng/L (0-12)
--- NOTE | 2024-10-07 11:15 | PC.PHAR ---
Spouse states Patient had medications filled at [facility] and at a rehab clinic and is suppose to see Primary doctor next week. Spouse states Patient took trulicity on Thursday . Pharmacy states they hadn't filled it since Last October. Patient wasn't to clear on his medications said to call his . She read off bottles he had and thinks that is what he is taking.
--- NOTE | 2024-10-07 13:07 | PC.SOCIAL ---
IMM Updated Updated pt on IMM. No questions voiced. Provided pt a copy. Initialed, dated, & timed a copy & placed in chart.
--- NOTE | 2024-10-07 15:15 | PM.MISC ---
Miscellaneous Note Purpose of Documentation: Overnight labs and H&P reviewed. No new complaints today. Appreciate therapy assessments. Trying to ascertain if patient is taking warfarin or Pradaxa. [facility] reports that patient has been picking up warfarin 3 mg however PCPs notes suggest patient is on Pradaxa. Will attempt to clarify. Further care plan discussed with neurology. Will aim to continue anticoagulation with current agent and add Plavix
--- NOTE | 2024-10-07 18:31 | PC.NURSE ---
Dr. Beltrán stated to do bladder scan. If urine is less than 200 ml we can skip the fley for now. Dr. Beltrán stated the Patient has a history of renal stone and Urologist from [facility] reviewed his CT Scan and pelvis for stone and mentioned its better to place it.
[2024-10-08] VITALS (8 sets, daily range): BP systolic 141–171; BP diastolic 74–99; PULSE 63–79; RESP 16–21; TEMP 36.3–36.8; O2SAT 93–98
[2024-10-08] MEDS: pantoprazole 40 mg SDV IVP (03:48)
--- NOTE | 2024-10-08 04:03 | PC.NURSE ---
Refusal of fluids Pt refused new bag of fluids states that he's been up to urinate multiple times throughout the night and is exhausted and wants to rest.
[2024-10-08 05:21] LABS: Hematocrit 43.6 % (37-53); Hemoglobin 15.20 g/dL (11.27-16.99); Mean Corpuscular HGB Conc 34.9 g/dL (30-55); Mean Corpuscular Hemoglobin 29.5 pg (27-33); Mean Corpuscular Volume 84.7 fl (82-101); Nucleated Red Blood Cells % 0 %; Platelet Count 253 10^3/cmm (157-399); Red Blood Count 5.15 10^6/uL (3.85-5.65); White Blood Count 12.99 10^3/uL (3.29-11.43)
[2024-10-08 05:47] LABS: Alanine Aminotransferase 26 U/L (0-41); Albumin Level 3.5 g/dL (3.5-5.2); Alkaline Phosphatase 87 U/L (40-130); Anion Gap 17.2 (5-19); Aspartate Amino Transferase 19 U/L (0-40); Blood Urea Nitrogen 6 mg/dL (6-20); Calcium 8.3 mg/dL (8.5-10.5); Carbon Dioxide 24 mmol/L (22-29); Chloride 106 mmol/L (98-107); Creatinine Clr Calc Pharmacy 171.4373; Globulin 2.7 g/dL (1.3-4.6); Glucose 126 mg/dL (65-115); Osmolality Calculated 297 mOsm/kg (285-295); Potassium 3.2 mmol/L (3.5-5.1); Sodium 144 mmol/L (136-145); Total Protein 6.2 g/dL (6.6-8.7)
--- NOTE | 2024-10-08 06:02 | ECG_ITS ---
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 Measurements Intervals [place] Rate: 74 P: 0 IN: 0 QRS: -71 QRSD: 146 T: 52 QT: 450 QTc: 502 Interpretive Statements ATRIAL FIBRILLATION RIGHT BUNDLE BRANCH BLOCK [120+ ms QRS DURATION, UPRIGHT V1, 40+ ms S IN I/aVL/V4/V5/V6] POSSIBLE ANTERIOR MYOCARDIAL INFARCTION , PROBABLY OLD [30 ms Q WAVE IN V3/V4, OR R < 0.2 mV IN V4] INFERIOR MYOCARDIAL INFARCTION , PROBABLY OLD [40+ ms Q WAVE AND/OR ST/T ABNORMALITY IN II/aVF] Compared to ECG 10/06/2024 23:28:44 No significant changes Electronically Signed On 10-08-2024 08:39:40 CDT by Bijan Mcgowan M.D. [email or web address] [id number]
[2024-10-08 07:22] LABS: Troponin(5th) Baseline 38 ng/L (0-15)
--- NOTE | 2024-10-08 08:33 | ECG_ITS ---
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 Measurements Intervals [place] Rate: 72 P: 0 SD: 0 QRS: -69 QRSD: 156 T: -14 QT: 454 QTc: 499 Interpretive Statements ATRIAL FIBRILLATION RIGHT BUNDLE BRANCH BLOCK [120+ ms QRS DURATION, UPRIGHT V1, 40+ ms S IN I/aVL/V4/V5/V6] INFERIOR MYOCARDIAL INFARCTION , OF INDETERMINATE AGE [40+ ms Q WAVE AND/OR ST/T ABNORMALITY IN II/aVF] Compared to ECG 10/08/2024 06:12:32 No significant changes Electronically Signed On 10-08-2024 09:37:51 CDT by Bijan Mcgowan M.D. [id number]
[2024-10-08 09:41] LABS: Troponin 5 2HR 38.74 ng/L (0-15); Troponin 5 2HR Delta 0.74 ABS# (0-10)
--- NOTE | 2024-10-08 11:28 | PC.CHAP ---
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 [] Patient/Family/Request visit [] Outpatient visit [] Follow-up visit [] Physician referral [] Code/Alert [x] Routine visit [] Staff referral [] Actively dying [x] Patient sleeping [] Family support [] [] Out of room [] Palliative care [] [] Receiving care in room [] Pre-surgical visit [] Trauma [] Long length of stay [] ICU visit [] Other: Relational/Emotional Strength [] Patient feels connected with others/family/visitors/staff [] Distress [] Loneliness/isolation [] Abandonment Spirituality of Patient [] Person of Aracely [] Attends Mormon of their [place] [] Believes in Prayer [] Reads Bible or Confucianism materials [] There are Spiritual issues to be addressed Geoint Analyst Interventions [] Prayer [] Active listening [] Non-anxious presence [] Spiritual/emotional support [] Crisis/trauma care [] Spiritual counseling [] Bereavement support [] Provided bereavement packet [] Provided Bible/devotional materials [] Provided toy/stuffed animal, coloring book to patient or family member [] Provided Communion [] Anointing/[place]ullen [] Salvation [] Completed spiritual assessment [] Other: Impact on Illness or Injury [] Angry [] Fearful [] Anxious [] Often cries [] Exhaustion [] Unable to work [] Unable to attend taoism [] Unable to walk/stand [] Unable to read [] Unable to drive [] Unable to eat/drink [] Unable to sleep [] Unable to be with family [] Patient intubated [] Other: Summary Time spent with patient
--- NOTE | 2024-10-08 12:19 | ECG_ITS ---
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 Measurements Intervals [place] Rate: 74 P: 0 [place]: 0 QRS: -68 QRSD: 154 T: 8 QT: 447 QTc: 496 Interpretive Statements ATRIAL FIBRILLATION RIGHT BUNDLE BRANCH BLOCK [120+ ms QRS DURATION, UPRIGHT V1, 40+ ms S IN I/aVL/V4/V5/V6] ANTERIOR MYOCARDIAL INFARCTION , OF INDETERMINATE AGE [40+ ms Q WAVE AND/OR ST/T ABNORMALITY IN V3/V4] INFERIOR MYOCARDIAL INFARCTION , PROBABLY OLD [40+ ms Q WAVE AND/OR ST/T ABNORMALITY IN II/aVF] Compared to ECG 10/08/2024 08:33:30 No significant changes Electronically Signed On 10-08-2024 12:57:14 CDT by Carlos Enrique Damon M.D. [email or web address]
--- NOTE | 2024-10-08 12:20 | PC.NURSE ---
Pt refused 12:30 bag of normal saline.
[2024-10-08 13:43] LABS: Troponin 5 6HR 40.89 ng/L (0-15); Troponin 5 6HR Delta 2.89 ng/L (0-12)
--- NOTE | 2024-10-08 14:01 | P.PN_ITS ---
Subjective 2 Subjective: No new complaints today. Patient is quite upset at having had another stroke. Both him and his confirm that he is actually on warfarin. His INR has been low. Recently he was asked to room increase his warfarin to 3 mg but has not had a chance to check his INR subsequently. He does not think it is a feasible plan to remain on warfarin as his INR has not remained at goal and he is worried about having recurrent strokes. He has not been on Pradaxa due to cost, this has been confirmed with his pharmacy additionally. Medications: Reviewed: Yes Vitals/I&O/Wt Last Vital Signs Temp 97.6 F 10/08/24 11:18 Pulse 68 10/08/24 11:18 Resp 20 H 10/08/24 11:18 BP 171/98 10/08/24 11:18 Pulse Ox 98 10/08/24 11:18 O2 Del Method Room Air 10/08/24 11:18 O2 Flow Rate 2 10/07/24 02:00 FiO2 21 10/07/24 05:32 10/07/24 10/08/24 10/08/24 22:59 06:59 14:59 Intake Total 956.25 / 2076.25 1000 / 3076.25 354 / 354 Balance 956.25 / 2076.25 1000 / 3076.25 354 / 354 Weight last 48 hrs Weight 122.878 kg Weight 119.522 kg Weight 122.186 kg Physical Exam 2 Narrative: General: No acute distress, AO x3 HEENT: PERRLA, pupils bilaterally equal and reactive, pallors not present Chest: Normal vesicular breath sounds, no added sounds, equal good air entry bilaterally CVS: S1-S2 regular, no murmurs, no tachycardia, no gallops, no rubs Abdomen: Soft, nontender, no organomegaly, bowel sounds present Neuro: No focal deficits, no facial deformity, AO x3, power 5/5 in all limbs Data 10/08/24 04:20 10/08/24 04:20 A&P Assessment and plan 1. Atrial fibrillation, unspecified type: 2. Acute CVA (cerebrovascular accident): Plan: Acute CVA - NIH stroke scale 4 - Symptom onset 2144 - Right-sided deficits -Currently has word finding difficulty, slurring his words, right facial droop, - Not a tPA candidate - On Pradaxa ct head - CT/CT head thrombolytic 60488 IMPRESSION: Negative for acute intracranial pathology. CTA head and neck CT/CT angio headneck* [id number] IMPRESSION: No large vessel stenosis or occlusion. IMPRESSION: No carotid artery stenosis or occlusion. Plan - Neurochecks - NIH stroke scale - Aspiration precautions - N.p.o. - PT OT -Speech therapy - Aspirin - Statin -IV fluids - Treat systolic blood pressure of greater than 220, diastolic greater than 120 - Telemetry monitoring - Will hold Pradaxa for at least 48 hours to 72 hours, depending on discussion with neurology - Type 2 diabetes mellitus, low-dose insulin sliding scale - Full code - Lovenox for DVT prophylaxis October 08, 2024 Patient is participating in therapy. Today we have clarified that patient has been taking warfarin at home. He has not been on Pradaxa due to the cost. His INR has been subtherapeutic reportedly for a few weeks now. Recently he was asked to increase his warfarin from 2 mg to 3 mg daily. He did make the change but had not had a chance to check his INR after the change. Upon arrival here his INR was noted to be at 1.03 which is subtherapeutic. Patient acknowledges that given difficulty maintaining his INR between 2-3, it is not a feasible plan for him to remain on warfarin as stroke prophylaxis going forward. He is agreeable to switching to Eliquis 5 mg twice daily and is hopeful to be able to use some coupons to be able to afford the medication. Will discontinue Pradaxa started yesterday. Changed to Eliquis 5 mg twice daily starting at 9 PM tonight. Additionally has been started on Plavix 75 mg p.o. daily. Discontinue IV fluids today. If patient tolerates the above changes, anticipate discharge in the upcoming 24 hours. Continue to encourage participation with physical therapy speech therapy and OT. PDMP PDMP Reviewed: Not Reviewed Attestations 2 Medical Necessity Statement*: Anticoagulation decision making and changes today. Coding Level of Care Code Acute Code for [facility] Diagnoses Atrial fibrillation, unspecified type I48.91 Atrial fibrillation type: unspecified Acute CVA (cerebrovascular accident) I63.9
--- NOTE | 2024-10-08 14:21 | ECG_ITS ---
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 Measurements Intervals [place] Rate: 79 P: 0 [place]: 0 QRS: -74 QRSD: 149 T: 11 QT: 445 QTc: 511 Interpretive Statements ATRIAL FIBRILLATION RIGHT BUNDLE BRANCH BLOCK [120+ ms QRS DURATION, UPRIGHT V1, 40+ ms S IN I/aVL/V4/V5/V6] POSSIBLE ANTERIOR MYOCARDIAL INFARCTION , PROBABLY OLD [30 ms Q WAVE IN V3/V4, OR R < 0.2 mV IN V4] INFERIOR MYOCARDIAL INFARCTION , PROBABLY OLD [40+ ms Q WAVE AND/OR ST/T ABNORMALITY IN II/aVF] INTERPRETATION BASED ON A DEFAULT AGE OF 40 YEARS Compared to ECG 10/08/2024 11:39:26 No significant changes Electronically Signed On 10-09-2024 18:56:52 CDT by Carlos Enrique Damon M.D. [id number]
[2024-10-09] VITALS (10 sets, daily range): BP systolic 129–154; BP diastolic 79–94; PULSE 58–83; RESP 17–22; TEMP 36.3–36.8; O2SAT 94–97
--- NOTE | 2024-10-09 01:14 | ECG_ITS ---
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 Measurements Intervals [place] Rate: 58 P: 0 [place]: 0 QRS: 254 QRSD: 159 T: 191 QT: 485 QTc: 479 Interpretive Statements ATRIAL FIBRILLATION WITH SLOW VENTRICULAR RESPONSE RIGHT AXIS DEVIATION [QRS AXIS > 100] RIGHT BUNDLE BRANCH BLOCK [120+ ms QRS DURATION, UPRIGHT V1, 40+ ms S IN I/aVL/V4/V5/V6] INFERIOR MYOCARDIAL INFARCTION , OF INDETERMINATE AGE [40+ ms Q WAVE AND/OR ST/T ABNORMALITY IN II/aVF] Compared to ECG 10/08/2024 14:29:21 Right-axis deviation now present Myocardial infarct finding still present Electronically Signed On 10-09-2024 18:49:43 CDT by Carlos Enrique Damon M.D. [id number]
--- NOTE | 2024-10-09 01:35 | ECG_ITS ---
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 Measurements Intervals [place] Rate: 53 P: 0 [place]: 0 QRS: -77 QRSD: 153 T: -14 QT: 452 QTc: 427 Interpretive Statements ATRIAL FIBRILLATION WITH SLOW VENTRICULAR RESPONSE WITH ABERRANT CONDUCTION OR VENTRICULAR PREMATURE COMPLEXES RIGHT BUNDLE BRANCH BLOCK [120+ ms QRS DURATION, UPRIGHT V1, 40+ ms S IN I/aVL/V4/V5/V6] INFERIOR MYOCARDIAL INFARCTION , OF INDETERMINATE AGE [40+ ms Q WAVE AND/OR ST/T ABNORMALITY IN II/aVF] ANTEROSEPTAL MYOCARDIAL INFARCTION , OF INDETERMINATE AGE [40+ ms Q WAVE IN V1-V4] Compared to ECG 10/08/2024 14:29:21 Ventricular premature complex(es) now present Aberrant conduction of supraventricular beat(s) now present Myocardial infarct finding still present Electronically Signed On 10-09-2024 18:47:17 CDT by Carlos Enrique Damon M.D. [email or web address]
[2024-10-09 04:44] LABS: Hematocrit 46.1 % (37-53); Hemoglobin 16.40 g/dL (11.27-16.99); Mean Corpuscular HGB Conc 35.6 g/dL (30-55); Mean Corpuscular Hemoglobin 29.4 pg (27-33); Mean Corpuscular Volume 82.8 fl (82-101); Nucleated Red Blood Cells % 0 %; Platelet Count 271 10^3/cmm (157-399); Red Blood Count 5.57 10^6/uL (3.85-5.65); White Blood Count 10.79 10^3/uL (3.29-11.43)
[2024-10-09 04:57] LABS: Alanine Aminotransferase 23 U/L (0-41); Albumin Level 3.9 g/dL (3.5-5.2); Alkaline Phosphatase 100 U/L (40-130); Anion Gap 15.0 (5-19); Aspartate Amino Transferase 17 U/L (0-40); Blood Urea Nitrogen 8 mg/dL (6-20); Calcium 9.0 mg/dL (8.5-10.5); Carbon Dioxide 25 mmol/L (22-29); Chloride 105 mmol/L (98-107); Creatinine Clr Calc Pharmacy 132.8810; Globulin 2.9 g/dL (1.3-4.6); Glucose 138 mg/dL (65-115); Osmolality Calculated 295 mOsm/kg (285-295); Potassium 3.0 mmol/L (3.5-5.1); Sodium 142 mmol/L (136-145); Total Protein 6.8 g/dL (6.6-8.7)
--- NOTE | 2024-10-09 11:10 | P.DS_ITS ---
Discharge Providers Date of Admission: 10/07/24 01:22 Date of Discharge: October 09, 2024 Attending Provider at Admission: Malachi Prince MD Attending Provider at Discharge: Iva Menezes MD Primary Care Provider: ROBBY Cote Diagnoses at Discharge Discharge Diagnosis 1. Atrial fibrillation, unspecified type: 2. Acute CVA (cerebrovascular accident): Reason for Visit Reason for Visit: Stroke Alert Discharge Data Studies Completed and Pending Completed Studies During Hospitalization Category Date Time Status CT head thrombolytic 16158 Stat Cat Scan 10/06/24 23:09 Completed CTA head neck [CT angio headneck* [id number]] Stat Cat Scan 10/06/24 23:29 Completed XR chest 1V portable [id number] Stat Exams 10/06/24 23:13 Completed Radiology Impressions Head CT 10/06/24 23:09 IMPRESSION: Negative for acute intracranial pathology. ASSESSMENT: ASPECTS ([place] Stroke Program Early CT Score) is 10. ADDENDUM: 10/06/24 [id number] Findings were discussed with JONY Oakley at 10/06/2024 11:19 PM CDT. Chest X-Ray 10/06/24 23:13 IMPRESSION: Negative for acute chest pathology. Head/Neck CTA 10/06/24 23:29 IMPRESSION: No large vessel stenosis or occlusion. IMPRESSION: No carotid artery stenosis or occlusion. REFERENCES: NASCET CRITERIA. The degree of stenosis in the cervical segment of the internal carotid artery is based on NASCET criteria. Normal is no stenosis. Mild is less than 50% stenosis. Moderate is 50-69% stenosis. Severe is 70% to 99% stenosis. Total occlusion is no detectable patent lumen. Laboratory Results WBC 10.79 10^3/uL (3.29-11.43) 10/09/24 03:32 RBC 5.57 10^6/uL (3.85-5.65) 10/09/24 03:32 Hgb 16.40 g/dL (11.27-16.99) 10/09/24 03:32 Hct 46.1 % (37-53) 10/09/24 03:32 MCV 82.8 fl (82-101) 10/09/24 03:32 MCH 29.4 pg (27-33) 10/09/24 03:32 MCHC 35.6 g/dL (30-55) 10/09/24 03:32 RDW 12.9 % (12.1-15.1) 10/09/24 03:32 Plt Count 271 10^3/cmm (157-399) 10/09/24 03:32 MPV 10.3 fL (7.4-10.4) 10/09/24 03:32 Neut % (Auto) 70.8 % 10/09/24 03:32 Lymph % (Auto) 15.3 % 10/09/24 03:32 [place] % (Auto) 10.5 % 10/09/24 03:32 Eos % (Auto) 2.3 % 10/09/24 03:32 Baso % (Auto) 0.8 % 10/09/24 03:32 Neut # (Auto) 7.64 10^3/uL (1.8-7.7) 10/09/24 03:32 Lymph # (Auto) 1.7 10^3/uL (0.8-4.8) 10/09/24 03:32 [place] # (Auto) 1.1 10^3/uL (0.2-0.9) H 10/09/24 03:32 Eos # (Auto) 0.3 10^3/uL (0.0-0.8) 10/09/24 03:32 Baso # (Auto) 0.1 10^3/uL (0.0-0.1) 10/09/24 03:32 Nucleated RBC % (auto) 0 % 10/09/24 03:32 Nucleated RBCs # 0.0 /100WBC 10/09/24 03:32 PT 14.20 SECONDS (12.1-14.9) 10/06/24 23:00 INR 1.03 (0.8-1.2) 10/06/24 23:00 APTT 29.3 SECONDS (23.9-36.7) 10/06/24 23:00 Sodium 142 mmol/L (136-145) 10/09/24 03:32 Potassium 3.0 mmol/L (3.5-5.1) L 10/09/24 03:32 Chloride 105 mmol/L (98-107) 10/09/24 03:32 Carbon Dioxide 25 mmol/L (22-29) 10/09/24 03:32 Anion Gap 15.0 (5-19) 10/09/24 03:32 BUN 8 mg/dL (6-20) 10/09/24 03:32 Creatinine 0.9 mg/dL (0.7-1.2) 10/09/24 03:32 GFR Calculation 86.7 mL/min (90-130) L 10/09/24 03:32 Glucose 138 mg/dL (65-115) H 10/09/24 03:32 POC Glucose 129 mg/dL (70-110) H 10/09/24 06:21 Estimat Average Glucose 148 10/06/24 23:00 Hemoglobin A1c 6.8 % (4.0-6.0) H 10/06/24 23:00 Calculated Osmolality 295 mOsm/kg (285-295) 10/09/24 03:32 Calcium 9.0 mg/dL (8.5-10.5) 10/09/24 03:32 Total Bilirubin 1.4 mg/dL (0.15-1.2) H 10/09/24 03:32 AST 17 U/L (0-40) 10/09/24 03:32 ALT 23 U/L (0-41) 10/09/24 03:32 Alkaline Phosphatase 100 U/L (40-130) 10/09/24 03:32 Troponin T Baseline 38 ng/L (0-15) H 10/08/24 06:45 Troponin T 120 Minute 38.74 ng/L (0-15) H 10/08/24 09:08 Delta Troponin T 0.74 ABS# (0-10) 10/08/24 09:08 Troponin T Hi Sens 6Hr 40.89 ng/L (0-15) H 10/08/24 13:12 Troponin T Hi Sens 6Hr Delta 2.89 ng/L (0-12) 10/08/24 13:12 NT-Pro-B Natriuret Pep 1248 pg/mL (0-125) H 10/07/24 01:15 Total Protein 6.8 g/dL (6.6-8.7) 10/09/24 03:32 Albumin 3.9 g/dL (3.5-5.2) 10/09/24 03:32 Globulin 2.9 g/dL (1.3-4.6) 10/09/24 03:32 Triglycerides 172 mg/dL (0-150) H 10/06/24 23:00 Cholesterol 115 mg/dL (0-200) 10/06/24 23:00 LDL Cholesterol, Calc 46 mg/dL (50-129) L 10/06/24 23:00 HDL Cholesterol 35 mg/dL (60-100) L 10/06/24 23:00 LDL/HDL Ratio 1.31 RATIO (0.00-3.22) 10/06/24 23:00 Cholesterol/HDL Ratio 3.29 mg/dL (1.0-5.00) 10/06/24 23:00 TSH 2.41 uIU/mL (0.27-4.20) 10/06/24 23:00 Urine Color Yellow (Yellow) 10/07/24 Urine Appearance Clear (CLEAR) 10/07/24: Urine pH 7.5 (5-7) 10/07/24 Ur Specific [place] 1.023 (1.005-1.030) 10/07/24: Urine Protein Trace (Negative) A 10/07/24: Urine Glucose (UA) 1+ (Normal) H 10/07/24: Urine Ketones Negative (Negative) 10/07/24 Urine Blood Negative (Negative) 10/07/24: Urine Nitrate Negative (Negative) 10/07/24: Urine Bilirubin Negative (Negative) 10/07/24: Urine Urobilinogen 1.0 mg/dL (Negative) 10/07/24: Ur Leukocyte Esterase Negative (Negative) 10/07/24: Urine RBC 0-2 /hpf (0-2) 10/07/24: Urine WBC 0-5 /hpf (0-5) 10/07/24: Ur Squamous Epith Cells 0-5 /hpf (0-5) 10/07/24 Amorphous Sediment Not Reportable 10/07/24 Urine Bacteria None seen /hpf (NONE) 10/07/24: Hyaline Casts 1.65 /lpf 10/07/24: Urine Opiates Screen Negative ng/mL (Negative) 08/22/25 00:29 Ur Barbiturates Screen Negative ng/mL (Negative) 10/07/24 00:29 Ur Phencyclidine Scrn Negative ng/mL (Negative) 10/07/24 00:29 Ur Amphetamines Screen Negative ng/mL (Negative) 10/07/24 00:29 U Benzodiazepines Scrn Negative ng/mL (Negative) 10/07/24 00:29 Urine Cocaine Screen Negative ng/mL (Negative) 10/07/24 00:29 U Marijuana (THC) Screen Negative ng/mL (Negative) 10/07/24 00:29 Vitals Last Vital Signs Temp 98.1 F 10/09/24 07:40 Pulse 70 10/09/24 07:40 Resp 17 10/09/24 07:40 BP 145/87 10/09/24 07:40 Pulse Ox 95 10/09/24 07:40 O2 Del Method Room Air 10/09/24 03:54 O2 Flow Rate 2 10/07/24 02:00 FiO2 21 10/07/24 05:32 Discharge Plan Discharge Patient Disposition: Home Condition: Stable Prescriptions: No Action (DME) diabetic shoes with inserts See Rx Instructions .Route .MEDSUPPLY Qty: 1 0RF Rx Instructions: As directed warfarin 3 mg tablet 3 mg PO DAILY Qty: 30 1RF Rx Instructions: ONE TAKE ONCE DAILY glipizide 10 mg tablet extended release 24hr 10 mg PO DAILY metformin 500 mg tablet extended release 24 hr 500 mg PO BID Qty: 60 5RF Trulicity 1.5 mg/0.5 mL pen injector 1.5 mg SUBCUT .weekly Qty: 2 5RF furosemide 40 mg tablet 40 mg PO DAILY Qty: 30 5RF cyclobenzaprine 10 mg tablet 10 mg PO .qhs PRN (Reason: muscle spasms) Qty: 30 2RF amlodipine 10 mg tablet 10 mg PO DAILY Qty: 30 5RF atorvastatin [Lipitor] 40 mg tablet 40 mg PO DAILY Qty: 30 5RF olmesartan 40 mg tablet 40 mg PO DAILY Qty: 30 1RF carvedilol 25 mg tablet 25 mg PO BID Qty: 60 5RF Rx Instructions: must administer with a meal/food potassium chloride 10 mEq capsule, extended release See Rx Instructions .ROUTE .COMPLEX Qty: 30 2RF Dose Instruction: TAKE 1 CAPSULE BY MOUTH EVERY DAY Rx Instructions: TAKE 1 CAPSULE BY MOUTH EVERY DAY hydralazine 50 mg tablet 50 mg PO Q8H Referrals: Celia Magallanes FNP [Primary Care Provider, Family Practice] Patient Instructions: Opioid Safety, Patient Portal & Joseline Instructions Coding Level of Care Code Acute Code for [facility]wd Diagnoses Atrial fibrillation, unspecified type I48.91 Atrial fibrillation type: unspecified Acute CVA (cerebrovascular accident) I63.9
--- NOTE | 2024-10-09 11:18 | USCV_ITS ---
Devang Kraus Age: 58 Gender: M : 1965 Exam Date: 10/09/2024 18:22 Ordering Phys: Iva Menezes MD Technologist: Pietro Mack [place] [facility] [place]: [place] BP: 154 / 90 HR: 71 Rhythm: Sinus Technical Quality: Adequate MEASUREMENTS (Male / Female) Normal Values 2D ECHO LV Diastolic Diameter PLAX 4.9 cm 4.2 - 5.9 / 3.9 - 5.3 cm IVS Diastolic Thickness 1.8 cm 0.6 - 1.0 / 0.6 - 0.9 cm IVS Systolic Thickness 2.1 cm LVPW Diastolic Thickness 1.3 cm 0.6 - 1.0 / 0.6 - 0.9 cm LVPW Systolic Thickness 1.8 cm LVOT Diameter 2.1 cm LV Ejection Fraction 2D Teich 67.9 % LV Ejection Fraction MOD 4C 56.0 % LV Ejection Fraction MOD 2C 52.8 % LV Ejection Fraction 2C AL 57.5 % LA Diameter 5.9 cm RA Systolic Volume 4C AL 74.9 ml RA Systolic Volume 4C MOD 67.9 ml LA Sys Volume AL 103.1 cm cubed LA Sys Volume Index AL 39.3 cm cubed/m squared Aorta at Sinotubular Diameter 3.0 cm IVC Diameter 1.8 cm M-MODE LA Ao Ratio MM 1.6 AV Cusp Separation MM 2.3 cm DOPPLER AV Peak Velocity 174.3 cm/s LVOT Peak Velocity 107.0 cm/s AV Area Cont Eq vti 1.6 cm squared AV Area Cont Eq pk 2.1 cm squared MV Peak Velocity 86.0 cm/s MV Area PHT 4.7 cm squared Mitral E to A Ratio 2.5 TR Peak Velocity 306.0 cm/s TR Peak Gradient 37.5 mmHg TR Mean Velocity 244.0 cm/s TR Mean Gradient 25.1 mmHg TR Velocity Time Integral 84.5 cm PV Peak Velocity 86.7 cm/s RV Ejection Time 0.3 s FINDINGS Left Ventricle Normal left ventricular size and systolic function, EF 57%.moderate left ventricular hypertrophy. Mild hypokinesia of the basal inferior wall segment.Grade I/IV diastolic dysfunction (abnormal relaxation filling pattern), normal to mildly elevated filling pressures. Saline contrast injection revealed no evidence of any right-to- left shunt Right Ventricle Normal right ventricular size and systolic function. Right Atrium Mildly increased right atrial size. Left Atrium Moderately increased left atrial volume 39.3 ml/m squared. Thickened interatrial septum, may suggest lipomatous dystrophy Mitral Valve Thickened mitral valve. Trace mitral valve regurgitation. Aortic Valve Thickened aortic valve. Aortic valve sclerosis. Trace aortic valve regurgitation. Tricuspid Valve Trace tricuspid valve regurgitation. Estimated pulmonary artery peak systolic pressure 41 mmHg with a mean pressure of 28 mmHg Pulmonic Valve Pulmonic valve not well visualized. Pericardium No pericardial effusion. Aorta Normal aortic annulus size. IVC Normal inferior vena cava. CONCLUSIONS Normal left ventricular size and systolic function, EF 57%.moderate left ventricular hypertrophy. Mild hypokinesia of the basal inferior wall segment.Grade I/IV diastolic dysfunction (abnormal relaxation filling pattern), normal to mildly elevated filling pressures. Saline contrast injection revealed no evidence of any right-to- left shunt. Moderately increased left atrial volume 39.3 ml/m squared. Mildly increased right atrial size. Thickened mitral valve. Trace mitral valve regurgitation. Aortic valve sclerosis. Trace aortic valve regurgitation. Trace tricuspid valve regurgitation. Estimated pulmonary artery peak systolic pressure 41 mmHg with a mean pressure of 28 mmHg. Thickened interatrial septum, suggestive of lipomatous dystrophy There is no pericardial effusion. There are no intracardiac masses. Compared to study from 12/08/2023, there may not be a significant change Dr Carlos Enrique Damon MD FAC (Electronically Signed) Final Date: 10 October 2024 07:32 S
--- NOTE | 2024-10-09 14:39 | P.PN_ITS ---
Subjective 2 Subjective: Overnight patient had an episode of RVR which then resolved. Patient states he has intermittent palpitations at home as well. Thereafter he was at baseline A- fib with bradycardia heart rate of 58. Carvedilol has been on hold. Medications: Reviewed: Yes Vitals/I&O/Wt Last Vital Signs Temp 98.0 F 10/09/24 12:38 Pulse 63 10/09/24 12:38 Resp 17 10/09/24 12:38 BP 151/89 10/09/24 12:38 Pulse Ox 94 10/09/24 12:38 O2 Del Method Room Air 10/09/24 03:54 O2 Flow Rate 2 10/07/24 02:00 FiO2 21 10/07/24 05:32 10/08/24 10/09/24 10/09/24 22:59 06:59 14:59 Intake Total 120 / 474 700 / 1174 600 / 600 Balance 120 / 474 700 / 1174 600 / 600 Weight last 48 hrs Weight 121.971 kg Weight 122.878 kg Physical Exam 2 Narrative: General: No acute distress, AO x3 HEENT: PERRLA, pupils bilaterally equal and reactive, pallors not present Chest: Normal vesicular breath sounds, no added sounds, equal good air entry bilaterally CVS: S1-S2 regular, no murmurs, no tachycardia, no gallops, no rubs Abdomen: Soft, nontender, no organomegaly, bowel sounds present Neuro: No focal deficits, no facial deformity, AO x3, power 5/5 in all limbs Data 10/09/24 03:32 10/09/24 03:32 A&P Assessment and plan 1. Atrial fibrillation, unspecified type: 2. Acute CVA (cerebrovascular accident): Plan: Acute CVA - NIH stroke scale 4 - Symptom onset 2144 - Right-sided deficits -Currently has word finding difficulty, slurring his words, right facial droop, - Not a tPA candidate - On Pradaxa ct head - CT/CT head thrombolytic 16885 IMPRESSION: Negative for acute intracranial pathology. CTA head and neck CT/CT angio headneck* [id number] IMPRESSION: No large vessel stenosis or occlusion. IMPRESSION: No carotid artery stenosis or occlusion. Plan - Neurochecks - NIH stroke scale - Aspiration precautions - N.p.o. - PT OT -Speech therapy - Aspirin - Statin -IV fluids - Treat systolic blood pressure of greater than 220, diastolic greater than 120 - Telemetry monitoring - Will hold Pradaxa for at least 48 hours to 72 hours, depending on discussion with neurology - Type 2 diabetes mellitus, low-dose insulin sliding scale - Full code - Lovenox for DVT prophylaxis October 08, 2024 Patient is participating in therapy. Today we have clarified that patient has been taking warfarin at home. He has not been on Pradaxa due to the cost. His INR has been subtherapeutic reportedly for a few weeks now. Recently he was asked to increase his warfarin from 2 mg to 3 mg daily. He did make the change but had not had a chance to check his INR after the change. Upon arrival here his INR was noted to be at 1.03 which is subtherapeutic. Patient acknowledges that given difficulty maintaining his INR between 2-3, it is not a feasible plan for him to remain on warfarin as stroke prophylaxis going forward. He is agreeable to switching to Eliquis 5 mg twice daily and is hopeful to be able to use some coupons to be able to afford the medication. Will discontinue Pradaxa started yesterday. Changed to Eliquis 5 mg twice daily starting at 9 PM tonight. Additionally has been started on Plavix 75 mg p.o. daily. Discontinue IV fluids today. If patient tolerates the above changes, anticipate discharge in the upcoming 24 hours. Continue to encourage participation with physical therapy speech therapy and OT. October 09, 2024 Overnight patient had an episode of RVR. Following this he has been bradycardic in A-fib at heart rate of 58. Carvedilol has been placed on hold for now. Based on heart rate trend will likely need to be resumed at a lower dose. May have been contributed additionally by hypokalemia with potassium at 3.0. Additionally discussed concern for potential tachybradycardia syndrome as patient reports he has several episodes of palpitations even at home. Will order an event monitor at the time of discharge. Patient has not had an echocardiogram yet. CV echo with bubble study was ordered given that this is a recurrent stroke in under a year. Patient and are both agreeable to switching to Eliquis as an outpatient given difficulty with maintaining the INR with warfarin. Continue PT OT speech therapy. Case management working on arranging home health with therapy services. PDMP PDMP Reviewed: Not Reviewed Attestations 2 Medical Necessity Statement*: Pending echocardiogram with bubble study, RVR overnight. Coding Level of Care Code Acute Code for Chg Fwd Diagnoses Atrial fibrillation, unspecified type I48.91 Atrial fibrillation type: unspecified Acute CVA (cerebrovascular accident) I63.9
[2024-10-10 03:35] VITALS: BP 144/76; PULSE 80; RESP 17; TEMP 36.8; O2SAT 93
[2024-10-10 04:45] VITALS: PULSE 57
[2024-10-10 05:21] LABS: Hematocrit 45.8 % (37-53); Hemoglobin 16.10 g/dL (11.27-16.99); Mean Corpuscular HGB Conc 35.2 g/dL (30-55); Mean Corpuscular Hemoglobin 29.4 pg (27-33); Mean Corpuscular Volume 83.7 fl (82-101); Nucleated Red Blood Cells % 0 %; Platelet Count 254 10^3/cmm (157-399); Red Blood Count 5.47 10^6/uL (3.85-5.65); White Blood Count 10.30 10^3/uL (3.29-11.43)
[2024-10-10 05:50] LABS: Alanine Aminotransferase 22 U/L (0-41); Albumin Level 3.8 g/dL (3.5-5.2); Alkaline Phosphatase 98 U/L (40-130); Aspartate Amino Transferase 17 U/L (0-40); Blood Urea Nitrogen 8 mg/dL (6-20); Calcium 8.9 mg/dL (8.5-10.5); Carbon Dioxide 23 mmol/L (22-29); Chloride 104 mmol/L (98-107); Creatinine Clr Calc Pharmacy 131.7705; Globulin 2.9 g/dL (1.3-4.6); Glucose 138 mg/dL (65-115); Osmolality Calculated 291 mOsm/kg (285-295); Sodium 140 mmol/L (136-145); Total Protein 6.7 g/dL (6.6-8.7)
[2024-10-10 05:56] LABS: Anion Gap 16.0 (5-19); Potassium 3.0 mmol/L (3.5-5.1)
[2024-10-10 06:04] LABS: Magnesium 1.9 mg/dL (1.7-2.3)
[2024-10-10 07:36] VITALS: BP 152/92; PULSE 86; RESP 18; TEMP 36.6; O2SAT 98
--- NOTE | 2024-10-10 09:48 | PC.CHAP ---
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 [] Patient/Family/Request visit [] Outpatient visit [] Follow-up visit [] Physician referral [] Code/Alert [x] Routine visit [] Staff referral [] Actively dying [] Patient sleeping [] Family support [] [] Out of room [] Palliative care [] [] Receiving care in room [] Pre-surgical visit [] Trauma [] Long length of stay [] ICU visit [] Other: Relational/Emotional Strength [] Patient feels connected with others/family/visitors/staff [] Distress [] Loneliness/isolation [] Abandonment Spirituality of Patient [x] Person of Aracely [] Attends Taoism of their [place] [x] Believes in Prayer [] Reads Bible or Rastafari materials [] There are Spiritual issues to be addressed Applications Chemist Interventions [x] Prayer [x] Active listening [] Non-anxious presence [] Spiritual/emotional support [] Crisis/trauma care [] Spiritual counseling [] Bereavement support [] Provided bereavement packet [x] Provided Bible/devotional materials [] Provided toy/stuffed animal, coloring book to patient or family member [] Provided Communion [] Anointing/[place] [] Salvation [x] Completed spiritual assessment [] Other: Impact on Illness or Injury [] Angry [] Fearful [] Anxious [] Often cries [] Exhaustion [] Unable to work [] Unable to attend restorationist [] Unable to walk/stand [] Unable to read [] Unable to drive [] Unable to eat/drink [] Unable to sleep [] Unable to be with family [] Patient intubated [] Other: Summary Time spent with patient 10 min
[2024-10-10 11:00] VITALS: BP 142/88; PULSE 73; RESP 17; TEMP 36.5; O2SAT 99
--- NOTE | 2024-10-10 11:57 | PM.DCS ---
Discharge Providers Date of Admission: 10/07/24 01:22 Date of Discharge: October 10, 2024 Attending Provider at Admission: Malachi Prince MD Attending Provider at Discharge: Ted Justin MD Consults: Neuro Primary Care Provider: ROBBY Cote Diagnoses at Discharge Discharge Diagnosis 1. Atrial fibrillation, unspecified type: 2. Acute CVA (cerebrovascular accident): Reason for Visit Reason for Visit: Stroke Alert Hospital Course Hospital Course Devang Kraus is a 58 year old male atrial fibrillation on Pradaxa, hypertension, and diabetes, history of right NATI stroke, status post TNKase in November 2023, left-sided, with persistent left leg weakness, who presents [facility] for stroke alert, patient was in bed watching TV with spouse, when developed right sided weakness, difficulty speaking, starting at 2145, EMS arrived at 2245, emergency evaluation started about 1 hour 50 minutes after symptom onset, he is NIH stroke scale was 4 on arrival, was not a tPA candidate as he is on Pradaxa, CT head no acute findings, CTA head and neck no amenable lesions to thrombectomy, during my examination, Devang has right-sided facial droop, word finding difficulty he has good president sales and 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 Imaging was done. We did order an MRI. That is pending. Also had issues with A-fib. Medication adjusted. Carvedilol briefly held. At time of discharge Eliquis was ordered. He did also mention he would want to follow-up with speech therapy. That was also requested. At time of discharge he was discharged in stable condition. Physical Exam Narrative: General: No acute distress, AO x3 HEENT: PERRLA, pupils bilaterally equal and reactive, pallors not present Chest: Normal vesicular breath sounds, no added sounds, equal good air entry bilaterally CVS: S1-S2 regular, no murmurs, no tachycardia, no gallops, no rubs Abdomen: Soft, nontender, no organomegaly, bowel sounds present Neuro: No focal deficits, no facial deformity, AO x3, power 5/5 in all limbs Discharge Data Studies Completed and Pending Completed Studies During Hospitalization Category Date Time Status CT head thrombolytic 24200 Stat Cat Scan 10/06/24 23:09 Completed CTA head neck [CT angio headneck* 31717/52656] Stat Cat Scan 10/06/24 23:29 Completed XR chest 1V portable [id number] Stat Exams 10/06/24 23:13 Completed CV. echo w/w bubble cont [id number] Routine Ultrasound 10/09/24 11:18 Completed Radiology Impressions Head CT 10/06/24 23:09 IMPRESSION: Negative for acute intracranial pathology. ASSESSMENT: ASPECTS ([place] Stroke Program Early CT Score) is 10. ADDENDUM: 10/06/24 [id number] Findings were discussed with JONY Oakley at 10/06/2024 11:19 PM CDT. Chest X-Ray 10/06/24 23:13 IMPRESSION: Negative for acute chest pathology. Head/Neck CTA 10/06/24 23:29 IMPRESSION: No large vessel stenosis or occlusion. IMPRESSION: No carotid artery stenosis or occlusion. REFERENCES: NASCET CRITERIA. The degree of stenosis in the cervical segment of the internal carotid artery is based on NASCET criteria. Normal is no stenosis. Mild is less than 50% stenosis. Moderate is 50-69% stenosis. Severe is 70% to 99% stenosis. Total occlusion is no detectable patent lumen. Laboratory Results WBC 10.30 10^3/uL (3.29-11.43) 10/10/24 04:50 RBC 5.47 10^6/uL (3.85-5.65) 10/10/24 04:50 Hgb 16.10 g/dL (11.27-16.99) 10/10/24 04:50 Hct 45.8 % (37-53) 10/10/24 04:50 MCV 83.7 fl (82-101) 10/10/24 04:50 MCH 29.4 pg (27-33) 10/10/24 04:50 MCHC 35.2 g/dL (30-55) 10/10/24 04:50 RDW 12.8 % (12.1-15.1) 10/10/24 04:50 Plt Count 254 10^3/cmm (157-399) 10/10/24 04:50 MPV 10.2 fL (7.4-10.4) 10/10/24 04:50 Neut % (Auto) 71.0 % 10/10/24 04:50 Lymph % (Auto) 14.8 % 10/10/24 04:50 [place] % (Auto) 10.4 % 10/10/24 04:50 Eos % (Auto) 2.5 % 10/10/24 04:50 Baso % (Auto) 0.8 % 10/10/24 04:50 Neut # (Auto) 7.32 10^3/uL (1.8-7.7) 10/10/24 04:50 Lymph # (Auto) 1.5 10^3/uL (0.8-4.8) 10/10/24 04:50 [place] # (Auto) 1.1 10^3/uL (0.2-0.9) H 10/10/24 04:50 Eos # (Auto) 0.3 10^3/uL (0.0-0.8) 10/10/24 04:50 Baso # (Auto) 0.1 10^3/uL (0.0-0.1) 10/10/24 04:50 Nucleated RBC % (auto) 0 % 10/10/24 04:50 Nucleated RBCs # 0.0 /100WBC 10/10/24 04:50 PT 14.20 SECONDS (12.1-14.9) 10/06/24 23:00 INR 1.03 (0.8-1.2) 10/06/24 23:00 APTT 29.3 SECONDS (23.9-36.7) 10/06/24 23:00 Sodium 140 mmol/L (136-145) 10/10/24 04:50 Potassium 3.0 mmol/L (3.5-5.1) L 10/10/24 04:50 Chloride 104 mmol/L (98-107) 10/10/24 04:50 Carbon Dioxide 23 mmol/L (22-29) 10/10/24 04:50 Anion Gap 16.0 (5-19) 10/10/24 04:50 BUN 8 mg/dL (6-20) 10/10/24 04:50 Creatinine 0.9 mg/dL (0.7-1.2) 10/10/24 04:50 GFR Calculation 86.7 mL/min (90-130) L 10/10/24 04:50 Glucose 138 mg/dL (65-115) H 10/10/24 04:50 POC Glucose 156 mg/dL (70-110) H 10/10/24 06:07 Estimat Average Glucose 148 10/06/24 23:00 Hemoglobin A1c 6.8 % (4.0-6.0) H 10/06/24 23:00 Calculated Osmolality 291 mOsm/kg (285-295) 10/10/24 04:50 Calcium 8.9 mg/dL (8.5-10.5) 10/10/24 04:50 Magnesium 1.9 mg/dL (1.7-2.3) 10/10/24 04:50 Total Bilirubin 1.3 mg/dL (0.15-1.2) H 10/10/24 04:50 AST 17 U/L (0-40) 10/10/24 04:50 ALT 22 U/L (0-41) 10/10/24 04:50 Alkaline Phosphatase 98 U/L (40-130) 10/10/24 04:50 Troponin T Baseline 38 ng/L (0-15) H 10/08/24 06:45 Troponin T 120 Minute 38.74 ng/L (0-15) H 10/08/24 09:08 Delta Troponin T 0.74 ABS# (0-10) 10/08/24 09:08 Troponin T Hi Sens 6Hr 40.89 ng/L (0-15) H 10/08/24 13:12 Troponin T Hi Sens 6Hr Delta 2.89 ng/L (0-12) 10/08/24 13:12 NT-Pro-B Natriuret Pep 1248 pg/mL (0-125) H 10/07/24 01:15 Total Protein 6.7 g/dL (6.6-8.7) 10/10/24 04:50 Albumin 3.8 g/dL (3.5-5.2) 10/10/24 04:50 Globulin 2.9 g/dL (1.3-4.6) 10/10/24 04:50 Triglycerides 172 mg/dL (0-150) H 10/06/24 23:00 Cholesterol 115 mg/dL (0-200) 10/06/24 23:00 LDL Cholesterol, Calc 46 mg/dL (50-129) L 10/06/24 23:00 HDL Cholesterol 35 mg/dL (60-100) L 10/06/24 23:00 LDL/HDL Ratio 1.31 RATIO (0.00-3.22) 10/06/24 23:00 Cholesterol/HDL Ratio 3.29 mg/dL (1.0-5.00) 10/06/24 23: TSH 2.41 uIU/mL (0.27-4.20) 10/06/24 23:00 Urine Color Yellow (Yellow) 10/07/24: Urine Appearance Clear (CLEAR) 10/07/24: Urine pH 7.5 (5-7) 10/07/24 Ur Specific [place] 1.023 (1.005-1.030) 10/07/24: Urine Protein Trace (Negative) A 10/07/24: Urine Glucose (UA) 1+ (Normal) H 10/07/24 Urine Ketones Negative (Negative) 10/07/24: Urine Blood Negative (Negative) 10/07/24: Urine Nitrate Negative (Negative) 10/07/24: Urine Bilirubin Negative (Negative) 10/07/24 Urine Urobilinogen 1.0 mg/dL (Negative) 10/07/24: Ur Leukocyte Esterase Negative (Negative) 10/07/24: Urine RBC 0-2 /hpf (0-2) 10/07/24: Urine WBC 0-5 /hpf (0-5) 10/07/24: Ur Squamous Epith Cells 0-5 /hpf (0-5) 10/07/24 Amorphous Sediment Not Reportable 10/07/24 Urine Bacteria None seen /hpf (NONE) 10/07/24 Hyaline Casts 1.65 /lpf 10/07/24: Urine Opiates Screen Negative ng/mL (Negative) 10/07/24: Ur Barbiturates Screen Negative ng/mL (Negative) 10/07/24: Ur Phencyclidine Scrn Negative ng/mL (Negative) 10/07/24: Ur Amphetamines Screen Negative ng/mL (Negative) 10/07/24 00:29 U Benzodiazepines Scrn Negative ng/mL (Negative) 10/07/24 00:29 Urine Cocaine Screen Negative ng/mL (Negative) 10/07/24 00:29 U Marijuana (THC) Screen Negative ng/mL (Negative) 10/07/24 00:29 Vitals Last Vital Signs Temp 97.7 F 10/10/24 11:00 Pulse 73 10/10/24 11:00 Resp 17 10/10/24 11:00 BP 142/88 10/10/24 11:00 Pulse Ox 99 10/10/24 11:00 O2 Del Method Room Air 10/10/24 11:00 O2 Flow Rate 2 10/07/24 02:00 FiO2 21 10/07/24 05:32 Discharge Plan Discharge Patient Disposition: Home Condition: Stable Prescriptions: New clopidogrel 75 mg Tablet 75 mg PO DAILY Qty: 30 0RF Eliquis 5 mg Tablet 5 mg PO BID@0900,2100 Qty: 60 0RF Continued (DME) diabetic shoes with inserts See Rx Instructions .Route .MEDSUPPLY Qty: 1 0RF Rx Instructions: As directed glipizide 10 mg tablet extended release 24hr 10 mg PO DAILY metformin 500 mg tablet extended release 24 hr 500 mg PO BID Qty: 60 5RF Trulicity 1.5 mg/0.5 mL pen injector 1.5 mg SUBCUT .weekly Qty: 2 5RF furosemide 40 mg tablet 40 mg PO DAILY Qty: 30 5RF cyclobenzaprine 10 mg tablet 10 mg PO .qhs PRN (Reason: muscle spasms) Qty: 30 2RF amlodipine 10 mg tablet 10 mg PO DAILY Qty: 30 5RF atorvastatin [Lipitor] 40 mg tablet 40 mg PO DAILY Qty: 30 5RF olmesartan 40 mg tablet 40 mg PO DAILY Qty: 30 1RF carvedilol 25 mg tablet 25 mg PO BID Qty: 60 5RF Rx Instructions: must administer with a meal/food potassium chloride 10 mEq capsule, extended release See Rx Instructions .ROUTE .COMPLEX Qty: 30 2RF Dose Instruction: TAKE 1 CAPSULE BY MOUTH EVERY DAY Rx Instructions: TAKE 1 CAPSULE BY MOUTH EVERY DAY hydralazine 50 mg tablet 50 mg PO Q8H Discontinued warfarin 3 mg tablet 3 mg PO DAILY Qty: 30 1RF Rx Instructions: ONE TAKE ONCE DAILY 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 ABHILASH for DC: Neurology Discharge Order = DC NOW: Discharge Order (Routine); Ordered 10/10/24 Ordered By: Ted Justin Other Ambulatory Orders: MCT/Event Monitor 21 Days (Routine) Timeframe: 1 Week Facility: [facility] - Location: Radiology Ordered By: Iva Menezes Referrals: Carlos Enrique Damon MD [Physician, Cardiology] Celia Magallanes FNP [Primary Care Provider, Family Practice] Discharge Diet: Cardiac and Diabetic Discharge Activity: Resume usual activity Patient Instructions: Clopidogrel (By mouth) (Plavix), Apixaban (By mouth), A-fib (Atrial Fibrillation) (DC), Ischemic Stroke (DC), Opioid Safety, Stroke Stoplight, Patient Portal & Joseline Instructions Activity Restrictions/Additional Instructions: up as toelrated Discharge Attestations Time Spent in Discharge Care*: less than 30 min Quality Metrics Clinical Quality Measures [ Cerebrovascular Accident { Contraindication to Antithrombotic: None; antithrombotic prescribed; Contraindication to Anticoagulation: None; anticoagulation prescribed; Contraindication to Statin: None; Statin prescribed;}] Coding Level of Care Code 32699 Diagnoses Atrial fibrillation, unspecified type I48.91 Atrial fibrillation type: unspecified Acute CVA (cerebrovascular accident) I63.9 Time Spent (min) 30
[2024-10-10 13:16] VITALS: BP 142/88; PULSE 73; RESP 17; TEMP 36.5; O2SAT 99
--- NOTE | 2024-10-10 13:24 | PC.NURSE ---
MRI refusal: MRI ordered for pt before discharge. Pt adamantly refused stating, I am not waiting, I want the hell out of here. Dr. Justin notified.
--- NOTE | 2024-10-10 13:40 | PC.SOCIAL ---
IMM Update pg 2 of IMM Updated and reviewed w/ patient. Copy provided and copy dated, initialed and placed in chart.
--- NOTE | 2024-10-11 08:14 | PC.NURSE ---
Tata Clarke LPN gave verbal orders on prescriptions to Sadie in pharmacy.
== END 2024-10-10 13:23 | disposition home or self-care (01) | DRG 65 ==
LOC: ER 10-07 01:15 → ER IP 10-07 01:22 → MEDSURG 10-07 05:48
PROVIDERS: Student in an Organized Health Care Education/Training Program; Admitting Provider Family Medicine; Emergency Provider Student in an Organized Health Care Education/Training Program; PCP Nurse Practitioner Family; Visit Provider Internal Medicine
DX: I63.9 Cerebral infarction, unspecified (principal); G81.91 Hemiplegia, unspecified affecting right dominant side; I69.354 Hemiplegia and hemiparesis following cerebral infarction affecting left non-dominant side; R29.810 Facial weakness; R47.01 Aphasia; I48.91 Unspecified atrial fibrillation; I10 Essential (primary) hypertension; E11.40 Type 2 diabetes mellitus with diabetic neuropathy, unspecified; M10.9 Gout, unspecified; F17.210 Nicotine dependence, cigarettes, uncomplicated; T50.996A Underdosing of other drugs, medicaments and biological substances, initial encounter; Z91.120 Patient's intentional underdosing of medication regimen due to financial hardship; Z79.01 Long term (current) use of anticoagulants; Z79.84 Long term (current) use of oral hypoglycemic drugs; Z79.85 Long-term (current) use of injectable non-insulin antidiabetic drugs
CPT/HCPCS: 36415; 36416; 70450; 70496; 70498; 71045; 80053; 80061; 80306; 81001; 82962; 83036; 83735; 83880; 84443; 84484; 85025; 85610; 85730; 92507; 92610; 93005; 94664; 96372; 97116; 97161; 97166; 97530; 99285; C8929; J1815; J2470; J7030; J9999; Q3014

== ENCOUNTER → 2024-10-13 11:50 | Outpatient (BNVA) | payer MEDICARE, SELFPAY | PROVIDERS: PCP Nurse Practitioner Family; Visit Provider Nurse Practitioner Family | DX: I10 Essential (primary) hypertension (principal) | CPT/HCPCS: 80053 ==

== ENCOUNTER 2024-11-04 12:12 | Emergency (ER) | payer MEDICARE, SELFPAY ==
[2024-11-04] VITALS (9 sets, daily range): BP systolic 98–155; BP diastolic 68–99; PULSE 51–93; RESP 17–20; TEMP 36.6; O2SAT 90–99; BMI 28.7
--- OUTSIDE RECORDS SUMMARY | 2024-11-04 12:21 | XMS_ITS | Clinical Summary ---
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 Name Role Phone Osiris Plummer MD Primary Care Provider [phone] Medications pregabalin (LYRICA) 75 mg Capsule Take [...] Encounters Date Type Department Care Team Description 10/25/2024 External Device Data ST[facility] ABSTRACTION Provider, Abstract 10/25/2024 External Device Data [facility] ABSTRACTION Provider, Abstract 10/25/2024 External Device Data [facility] ABSTRACTION Provider, Abstract 10/19/2024 External Device Data [facility] ABSTRACTION Provider, Abstract 09/21/2024 External Device Data ST[facility] ABSTRACTION Provider, [...] Comments Blood Pressure 139/89 02/24/2024 3:26 PM COMMUNICATIONS ASSOCIATE Pulse 64 01/06/2024 9:43 AM COMMUNICATIONS ASSOCIATE Temperature 36.1 C (97 F) 02/24/2024 3:26 PM COMMUNICATIONS ASSOCIATE Respiratory Rate 18 02/24/2024 3:26 PM COMMUNICATIONS ASSOCIATE Oxygen Saturation 96% 02/24/2024 3:26 PM COMMUNICATIONS ASSOCIATE Inhaled Oxygen Concentration - - Weight 130.2 kg (287 lb) 02/16/2024 9:16 AM COMMUNICATIONS ASSOCIATE Height 198.1 cm (6' 6 ) 02/16/2024 9:16 AM COMMUNICATIONS ASSOCIATE Body Mass Index 33.17 02/16/2024 9:16 AM COMMUNICATIONS ASSOCIATE Plan of Treatment Health Maintenance Due Date [...] Completed 05/14/2021 Medical Devices Implanted Type Area Cardiac Cath Tech Device Identifier Shelf Expiration Date Model / Serial / Lot Ring Tension Capsular Type 14c [id number] - [id number] Implanted:Qty: 1 on 02/24/2024 by Avi Santamaria MD at [facility] Eye Left: Eye [employer] 07/15/2028 [id number] / [id number] / [id number] Oil Slc 8.5ml [id number] - [id number] Implanted:Qty: 1 on 02/24/2024 by Matt Verduzco MD at [facility] Eye Left: Eye [employer] 10/16/2026 [id number] / [id number] Lens Iol [employer] 23.5 [id number] - [id number] Implanted:Qty: 1 on 02/24/2024 by Avi Santamaria MD at [facility] Lens Left: Eye [employer] [id number] 10/14/2026 [id number] / [id number] / Explanted Type Area Cardiac Cath Tech Device Identifier Shelf Expiration Date Model / Serial / Lot Oil Slc 8.5ml [id number] - [id number] Implanted:Qty: 1 on 08/26/2023 by Matt Verduzco MD at [facility] Explanted:Qty: 1 on 09/30/2023 by Matt Verduzco MD at [facility] Eye Left: Eye [employer] 04/15/2026 [id number] / [id number] Description:[id number] GTIN: [id number] Oil Slc 8.5ml [id number] - [id number] Implanted:Qty: 1 on 09/30/2023 by Matt Verduzco MD at [facility] Explanted:Qty: 1 on 02/24/2024 by Matt Verduzco MD at [facility] Eye Left: Eye [employer] 06/15/2026 [id number] KN Description:GTIN: [id number] Insurance U[employer] PPO [facility] Advance Directives For more information, please contact: [phone] * Full Code (Latest Code Status on File) Date Activated Date Inactivated Comments 02/24/2024 11:47 AM 02/24/2024 6:15 PM * Full Code Date Activated Date Inactivated Comments 12/16/2023 12:18 PM 01/06/2024 3:58 PM * Default Full Code - Needs Discussion Date Activated Date Inactivated Comments 12/14/2023 4:23 PM 12/16/2023 12:18 PM Care Teams Mechanical Pencils Assembler Relationship Specialty Start Date End Date Osiris Plummer MD [address] [place] [address] PCP - General Family Practice 08/19/23
[2024-11-04 13:03] LABS: Add Urine Microscopic? YES
--- NOTE | 2024-11-04 13:22 | CT_ITS ---
WS: [id number] CT ABDOMEN AND PELVIS WITH CONTRAST HISTORY: hematuria TECHNIQUE: Imaging performed of the abdomen and pelvis with IV contrast. Single phase imaging of the abdomen. Coronal and sagittal reformats are submitted. All CT scans at [facility] use at least one of these dose optimization techniques: automated exposure control; mA and/or kV adjustment per patient size (includes targeted exams where dose is matched to clinical indication); or iterative reconstruction. IV CONTRAST: Omnipaque 350; 100 mL IV. Oral contrast: No DLP: 1105.96 mGy.cm COMPARISON: 05/06/2023 Lower thorax: Lung bases are clear. Moderate cardiomegaly. Small hiatal hernia. Liver/biliary system: Normal size with no intrahepatic dilatation. Gallbladder: Normal. No gallstones or wall thickening. No pericholecystic fluid. Pancreas: Normal size pancreas and pancreatic duct. No adjacent inflammation. Spleen: Normal size spleen. No mass or infarct. Adrenal glands: Bilateral nodularity and thickening of each adrenal gland but greater on the RIGHT. Largest nodule associated with the RIGHT adrenal gland is 2.3 cm. Largest nodule associated with the LEFT adrenal gland is 1.1 cm. Similar to 05/06/2023 Right kidney: Very tiny cortical density in the lower pole is too small to characterize. No obstruction or calcifications. Left kidney: Normal. Aorta: Mild atherosclerosis with no aneurysm. Lymphadenopathy: There are a few small hyperemic inguinal lymph nodes. LEFT iliac lymph node 11 mm. No adenopathy. Free fluid: None. GI tract: Nondistended stomach. No small bowel obstruction. No appendicitis. Mild constipation. Abdominal wall: Fat containing umbilical hernia. Pelvis: Urinary bladder is well distended. There is increased density layering in the dependent portion of the urinary bladder measuring 8.0 x 3.6 cm. Suspect this is probably blood products within the urinary bladder layering posteriorly. No obvious site of bleeding is identified. Underlying neoplasm or tumor should be considered. This finding is new in the urinary bladder since 05/06/2023. Prostate is slightly enlarged. Mild encroachment upon the bladder. Bones: Mild anterior wedging of L5 with sclerotic changes, stable. Sclerotic foci within the RIGHT ilium similar to the prior study 05/06/2023. CT/CT abdomen pelvis w con* [id number] IMPRESSION: 1. Increased density layering in the posterior urinary bladder measures 8.0 x 3.6 cm. This is likely acute to subacute blood products layering posteriorly in the urinary bladder. Source of the hematoma is not evident. Evaluation by urol ogy recommended. 2. No renal obstruction. No renal mass. No ureteral obstruction identified. 3. No GI tract obstruction. 4. Bilateral adrenal gland nodularities and masses. No change since 05/06/2023. This can be evaluated by MRI or CT adrenal gland protocol on a nonurgent basis . 5. No change in the indeterminate inguinal lymph nodes since 05/06/2023. No kristal nopathy identified. 6. Sclerotic foci within the bones of the pelvis are stable. Probably represen ting bone islands.
[2024-11-04 13:44] LABS: Hematocrit 41.8 % (37-53); Hemoglobin 14.40 g/dL (11.27-16.99); Mean Corpuscular HGB Conc 34.4 g/dL (30-55); Mean Corpuscular Hemoglobin 29.1 pg (27-33); Mean Corpuscular Volume 84.4 fl (82-101); Nucleated Red Blood Cells % 0 %; Platelet Count 366 10^3/cmm (157-399); Red Blood Count 4.95 10^6/uL (3.85-5.65); White Blood Count 29.06 10^3/uL (3.29-11.43)
--- NOTE | 2024-11-04 13:51 | ED_ITS ---
HPI - Male Genitourinary 2 General: Chief complaint: Urogenital-Male Stated complaint: Peeing Blood Weakness Time Seen by Provider: 11/04/24 13:19 Source: patient Mode of arrival: ambulatory Limitations: no limitations History of Present Illness: 58-year-old male states been having shabnam turia over the last 2 to 3 days. States been gross hematuria he is also been having some increased fatigue. States he had same 3 weeks ago was placed on Keflex and his hematuria has stopped. He denies any fever he denies any abdominal pain he denies any vomiting or diarrhea patient currently is on Eliquis. Patient is afebrile Associated symptoms: Reports hematuria; Deny vomiting Related Data Previous Rx's ?Medication ?Instructions ?Recorded diabetic shoes with inserts #1 ea 09/08/23 dulaglutide 1.5 mg/0.5 mL 1.5 mg (0.5 mL) SUBCUT .week ly #2 05/25/24 subcutaneous pen injector mL ([facility]) furosemide 40 mg tablet 40 mg PO DAILY #30 tabs 11/10 metformin 500 mg tablet,extended 500 mg PO BID #60 tab s 05/25/24 release 24 hr amlodipine 10 mg tablet 10 mg PO DAILY #30 tabs 06/17 atorvastatin 40 mg tablet (Lipitor) 40 mg PO DAILY #30 tabs 07/05/24 carvedilol 25 mg tablet 25 mg PO BID #60 tabs cyclobenzaprine 10 mg tablet 10 mg PO .qhs PRN muscle spasms 07/05/24 #30 tabs olmesartan 40 mg tablet 40 mg PO DAILY #30 tabs 06/17 0 apixaban 5 mg tablet (Eliquis) 5 mg PO BID@0900,2100 # 60 tabs 10/13/24 clopidogrel 75 mg tablet 75 mg PO DAILY #90 tabs 09/17 10/10 hydralazine 50 mg tablet 50 mg PO Q8H #90 tabs potassium chloride 10 mEq See Rx Instructions .Route 0 11/01/24 capsule,extended release .COMPLEX #30 caps Allergies Allergy/AdvReac Type Severity Reaction Status Date / Time No Known Allergies Allergy Verified 10/24/24 11:15 Review of Systems 2 Const: Reports: fatigue; Denies: fever(s) Card: Denies: chest pain Resp: Denies: dyspnea GI: Denies: abdominal pain or vomiting : Reports: hematuria PFSH ED 2 PFSH: Medical History A-fib Acute CVA (cerebrovascular accident) Anticoagulant long-term use Screening PSA (prostate specific antigen) Diabetic neuropathy Diabetes mellitus Gout Hypertension Surgical History History of detached retina repair History of back surgery Family History Other Cancer Social History Smoking and tobacco/nicotine status: current every day tobacco/nicotine user (1/2 PPD) cigarettes Packs smoked per day: 0.5 Years cigarettes smoked: 30 Second hand smoke exposure: Yes Alcohol intake: never Substance/Drug Use: never Caregiver/support person: Yes Lives independently: Yes Household members: spouse Marital status: service: No Current occupational status: disabled Do you think of yourself as: Straight/Heterosexual Current gender identity: Male Special jewels needs: No Agree to transfusion: Yes Physical Exam 2 Const: COMMON NORMALS: no acute distress, patient oriented x3 and healthy appearing HENMT: COMMON NORMALS: normocephalic and atraumatic HEAD & SCALP: n ormocephalic and atraumatic Neck/C-Spine: COMMON NORMALS: full ROM and supple Chest: COMMONS NORMALS: normal inspection of the chest Resp: COMMON NORMALS: normal respiratory effort, No retractions, No use of accessory muscles and clear to auscultation bilaterally AUSCULTATION: clear to auscultation bilaterally Cardio: COMMON NORMALS: regular rate, regular rhythm and No murmurs present (Cardio) RATE: regular rate RHYTHM: regular rhythm GI: COMMON NORMALS: Normal to inspection, nondistended, normoactive bowel sounds present, Soft to palpation, non-tender and no masses PALPATION: Yes Soft to palpation Extremity: COMMON NORMALS: normal to inspection and full ROM Neuro: COMMON NORMALS: patient oriented x3, moves all extremities and no focal motor deficits Psych: COMMON NORMALS: mental status grossly normal, Normal thought process present and cooperative THOUGHT PROCESS: Normal thought process present Skin: COMMON NORMALS: no rashes or lesions noted and no wounds GENERAL SKIN EXAM: no rashes or lesions noted Course 2 Vital Signs: Vital signs: Vital Signs Temperature 97.8 F 11/04/24 12:38 Pulse Rate 93 11/04/24 12:38 Respiratory Rate 20 H 11/04/24 14:57 Blood Pressure 113/70 11/04/24 12:38 Pulse Oximetry 97 11/04/24 14:57 Oxygen Delivery Me thod Room Air 11/04/24 12:38 MDM - Male Medical Decision Making Patient presents for acute cystitis along with a elevated leukocytosis. No signs of sepsis lactates normal vitals have been normal while here. Did give him Rocephin for antibiotic he did receive a fluid bolus. CT showed a large amount of blood in his bladder did place a King attempted to flush the blood clots but it clotted the King catheter off immediately and spoke to the hospitalist here Dr. Beltrán who recommended transfer for urology I did speak to urology at [facility] along with the ER physician Dr. Calderon who graciously accepted patient there for higher level care of urology. Medical Records I reviewed the patient's medical records. Lab Data I reviewed the patient's lab results. 11/04/24 13:22 11/04/24 13:22 Radiology Impressions Abdomen/Pelvis CT 11/04/24 13:22 IMPRESSION: 1. Increased density layering in the posterior urinary bladder measures 8.0 x 3.6 cm. This is likely acute to subacute blood products layering posteriorly in the urinary bladder. Source of the hematoma is not evident. Evaluation by urology recommended. 2. No renal obstruction. No renal mass. No ureteral obstruction identified. 3. No GI tract obstruction. 4. Bilateral adrenal gland nodularities and masses. No change since 05/06/2023. This can be evaluated by MRI or CT adrenal gland protocol on a nonurgent basis. 5. No change in the indeterminate inguinal lymph nodes since 05/06/2023. No adenopathy identified. 6. Sclerotic foci within the bones of the pelvis are stable. Probably representing bone islands. Chest X-Ray 11/04/24 16:24 IMPRESSION: 1. No definite acute cardiopulmonary process identified radiographically. 2. Stable [id number] cardiomegaly. Laboratory Results WBC 29.06 10^3/uL (3.29-11.43) H 11/04/24 13:22 RBC 4.95 10^6/uL (3.85-5.65) 11/04/24 13:22 Hgb 14.40 g/dL (11.27-16.99) 11/04/24 13:22 Hct 41.8 % (37-53) 11/04/24 13:22 MCV 84.4 fl (82-101) 11/04/24 13:22 MCH 29.1 pg (27-33) 11/04/24 13:22 MCHC 34.4 g/dL (30-55) 11/04/24 13:22 RDW 12.9 % (12.1-15.1) 11/04/24 13:22 Plt Count 366 10^3/cmm (157-399) 11/04/24 13:22 MPV 10.1 fL (7.4-10.4) 11/04/24 13:22 Neut % (Auto) 91.3 % 11/04/24 13:22 Lymph % (Auto) 3.3 % 11/04/24 13:22 Cherry % (Auto) 3.6 % 11/04/24 13:22 Eos % (Auto) 0.7 % 11/04/24 13:22 Baso % (Auto) 0.4 % 11/04/24 13:22 Neut # (Auto) 26.52 10^3/uL (1.8-7.7) H 11/04/24 13:22 Lymph # (Auto) 1.0 10^3/uL (0.8-4.8) 11/04/24 13:22 Cherry # (Auto) 1.0 10^3/uL (0.2-0.9) H 11/04/24 13:22 Eos # (Auto) 0.2 10^3/uL (0.0-0.8) 11/04/24 13:22 Baso # (Auto) 0.1 10^3/uL (0.0-0.1) 11/04/24 13:22 Nucleated RBC % (auto) 0 % 11/04/24 13:22 Nucleated RBCs # 0.0 /100WBC 11/04/24 13:22 PT 16.10 SECONDS (12.1-14.9) H 11/04/24 13:22 INR 1.20 (0.8-1.2) 11/04/24 13:22 Sodium 140 mmol/L (136-145) 11/04/24 13:22 Potassium 3.3 mmol/L (3.5-5.1) L 11/04/24 13:22 Chloride 100 mmol/L (98-107) 11/04/24 13:22 Carbon Dioxide 26 mmol/L (22-29) 11/04/24 13:22 Anion Gap 17.3 (5-19) 11/04/24 13:22 BUN 12 mg/dL (6-20) 11/04/24 13:22 Creatinine 1.1 mg/dL (0.7-1.2) 11/04/24 13:22 GFR Calculation 68.8 mL/min (90-130) L 11/04/24 13:22 Glucose 196 mg/dL (65-115) H 11/04/24 13:22 Calculated Osmolality 295 mOsm/kg (285-295) 11/04/24 13:22 Lactic Acid 1.5 mmol/L (0.5-2.2) 11/04/24 13:02 Calcium 9.3 mg/dL (8.5-10.5) 11/04/24 13:22 Total Bilirubin 0.8 mg/dL (0.15-1.2) 11/04/24 13:22 AST 23 U/L (0-40) 11/04/24 13:22 ALT 46 U/L (0-41) H 11/04/24 13:22 Alkaline Phosphatase 106 U/L (40-130) 11/04/24 13:22 Total Protein 7.0 g/dL (6.6-8.7) 11/04/24 13:22 Albumin 3.9 g/dL (3.5-5.2) 11/04/24 13:22 Globulin 3.1 g/dL (1.3-4.6) 11/04/24 13:22 Lipase 24 U/L (13-60) 11/04/24 13:22 Urine Color Red (Yellow) A 11/04/24 12:41 Urine Appearance Turbid (CLEAR) A 11/04/24 12:41 Urine pH (5-7) 11/04/24 12:41 Ur Specific [place] Not Reportable 11/04/24 12:41 Urine Protein Not Reportable 11/04/24 12:41 Urine Glucose (UA) Not Reportable 11/04/24 12:41 Urine Ketones Not Reportable 11/04/24 12:41 Urine Blood Not Reportable 11/04/24 12:41 Urine Nitrate Not Reportable 11/04/24 12:41 Urine Bilirubin Not Reportable 11/04/24 12:41 Urine Urobilinogen Not Reportable 11/04/24 12:41 Ur Leukocyte Esterase Not Reportable 11/04/24 12:41 Urine RBC Too numerous to cnt /hpf (0-2) H 11/04/24 12:41 Urine WBC 5-10 /hpf (0-5) H 11/04/24 12:41 Ur Squamous Epith Cells 0-4 /hpf (0-5) H 11/04/24 12:41 Amorphous Sediment Not Reportable 11/04/24 12:41 Urine Bacteria 1+ /hpf (NONE) H 11/04/24 12:41 Urine Mucus Trace /hpf 11/04/24 12:41 All radiology interpretation(s) finalized by discharge Discharge Plan Discharge Patient Disposition: Xfer Short-Term Hosp Clinical Impression: Urinary tract infection, Hematuria, Leukocytosis Condition: Stable Print Language: Serbian Coding Level of Care Code ED 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
[2024-11-04 14:00] LABS: INR 1.20 (0.8-1.2); Prothrombin Time 16.10 SECONDS (12.1-14.9)
[2024-11-04 14:09] LABS: Alanine Aminotransferase 46 U/L (0-41); Albumin Level 3.9 g/dL (3.5-5.2); Alkaline Phosphatase 106 U/L (40-130); Anion Gap 17.3 (5-19); Aspartate Amino Transferase 23 U/L (0-40); Blood Urea Nitrogen 12 mg/dL (6-20); Calcium 9.3 mg/dL (8.5-10.5); Carbon Dioxide 26 mmol/L (22-29); Chloride 100 mmol/L (98-107); Creatinine Clr Calc Pharmacy 106.1097; Globulin 3.1 g/dL (1.3-4.6); Glucose 196 mg/dL (65-115); Lipase 24 U/L (13-60); Osmolality Calculated 295 mOsm/kg (285-295); Potassium 3.3 mmol/L (3.5-5.1); Sodium 140 mmol/L (136-145); Total Protein 7.0 g/dL (6.6-8.7)
[2024-11-04 14:14] LABS: Lactic Sepsis W/Reflex 1.5 mmol/L (0.5-2.2)
[2024-11-04] MEDS: morphine 4 mg/mL SDV 1 mL IVP (14:57)
[2024-11-04] MEDS: ondansetron 2 mg/ML SDV 2 mL 4 MG IVP (14:58)
[2024-11-04] MEDS: iohexol 350 mg/mL 500 mL Btl (per mL) IV (15:01)
--- NOTE | 2024-11-04 16:24 | XRR_ITS ---
PROCEDURE INFORMATION: Exam: XR Chest Exam date and time: 11/04/2024 4:53 PM Age: 58 years old Clinical indication: Other: Weakness TECHNIQUE: Imaging protocol: Radiologic exam of the chest. Views: 1 view. COMPARISON: CR (CHEST, ) 10/06/2024 11:33 PM FINDINGS: Lungs: No infiltrates or lobar consolidation. Pleural spaces: No large pleural effusions or pneumothorax. Heart/Mediastinum: Stable [id number] cardiomegaly. No pericardial effusions. Bones/joints: Unremarkable. XR/XR chest 1V portable [id number] IMPRESSION: 1. No definite acute cardiopulmonary process identified radiographically. 2. Stable [id number] cardiomegaly.
[2024-11-04] MEDS: cefTRIAXone 1,000 mg SDV 1000 MG IVP (17:38)
--- NOTE | 2024-11-04 17:39 | PC.NURSE ---
this RN ordered by provider to place espinosa catheter and irrigate bladder until clear, attempted 18f, 20f and 22f with no success; was able to get 20f to insert and was inflated with 10ml of sterile water. this rn flushed 60 ml of sterile water and then with bj, 60ml of sterile water and with bj, 60ml and was unable to pull back and get return from the catheter. when espinosa bag was hooked up it drained approximately 20ml from bladder and is continuing to drain. contents removed from irrigation included multiple clots. Dr. Wynn notified of findings.
--- NOTE | 2024-11-04 18:00 | PC.NURSE ---
report called to Yessenia OCAMPO by this rn to DOMONIQUE Cassidy.
== END 2024-11-04 18:39 | disposition short-term general hospital (02) ==
PROVIDERS: Emergency Provider Emergency Medicine
DX: N39.0 Urinary tract infection, site not specified (principal); R31.9 Hematuria, unspecified; D72.829 Elevated white blood cell count, unspecified; F17.210 Nicotine dependence, cigarettes, uncomplicated; E11.40 Type 2 diabetes mellitus with diabetic neuropathy, unspecified; I10 Essential (primary) hypertension; Z86.73 Personal history of transient ischemic attack (TIA), and cerebral infarction without residual deficits
CPT/HCPCS: 36415; 71045; 74177; 80053; 81001; 83605; 83690; 85025; 85610; 87040; 87077; 87086; 87186; 96361; 96374; 96375; 99285; J0696; J2270; J2405; J7030